=== PATIENT | female | born 1940 | race Caucasian/White ===

== ENCOUNTER 2017-07-08 14:23 | Inpatient (IN) | payer MEDICARE, OTHER ==
--- NOTE | 2017-07-08 15:01 | ED ---
Fall HPI - General Chief Complaint: Fall Stated Complaint: Fall Time Seen by Provider: 07/08/17 14:33 Source: patient Mode of arrival: EMS Limitations: altered mental status (Pain medication) - History of Present Illness Initial Comments: This patient is a 76-year-old woman who presents to be evaluated after she had a fall. The patient states she was at her apartment and that she caught her foot on the carpet. This resulted in her falling backward and landing on her left arm awkwardly. She complains of pain near the left shoulder. She is also having some left leg pain. The patient denies hitting her head. She has no head or neck pain. She is not having chest, back or abdomen pain. EMS was phoned and did give the patient 1 dose of fentanyl, and she is declining any further analgesia right now. History does appear somewhat limited as the patient seems to be mildly sedated related to the pain medication. MD Complaint: fall -: minutes(s) Fall From: standing When Fall Occurred: just prior to arrival Fall Witnessed: no Place Fall Occurred: home Loss of Consciousness: none Prolonged Down Time?: no Symptoms Prior to Fall: none Location - Extremities: Left: Arm, Leg Severity: moderate Quality: aching Context: tripped/slipped Associated Symptoms: denies - Related Data Home Medications Medication Instructions Recorded Confirmed Apixaban [Eliquis] 5 mg PO BID 07/08/17 07/08/17 Atorvastatin [Lipitor] 20 mg PO DAILY 07/08/17 07/08/17 Donepezil HCl [Aricept] 5 mg PO DAILY 07/08/17 07/08/17 Escitalopram [Lexapro] 5 mg PO DAILY 07/08/17 07/08/17 Gabapentin [Neurontin] 300 mg PO BID 07/08/17 07/08/17 Losartan [Cozaar] 25 mg PO DAILY 07/08/17 07/08/17 Memantine HCl [Namenda] 5 mg PO DAILY 07/08/17 07/08/17 Metoprolol Succinate (ER) [Toprol 25 mg PO DAILY 07/08/17 07/08/17 Xl] Pantoprazole Sodium [Protonix] 40 mg PO DAILY 07/08/17 07/08/17 metFORMIN HCL [Glucophage] 500 mg PO BID 07/08/17 07/08/17 Allergies Allergy/AdvReac Type Severity Reaction Status Date / Time No Known Allergies Allergy Verified 07/08/17 14:39 Review of Systems ROS Statement: Those systems with pertinent positive or pertinent negative responses have been documented in the HPI. ROS Other: All systems not noted in ROS Statement are negative. Limitations: ROS unobtainable due to patients medical condition (pain medication ) Constitutional: Denies: weakness Eyes: Denies: vision change Respiratory: Denies: cough, dyspnea Cardiovascular: Denies: chest pain, syncope Gastrointestinal: Reports: nausea (Since receiving medication). Denies: abdominal pain, vomiting Genitourinary: Denies: dysuria Musculoskeletal: Denies: back pain Neurological: Denies: headache, weakness, numbness Past Medical History Past Medical History: Diabetes Mellitus, GERD/Reflux, Hyperlipidemia, Hypertension, Memory Impairment Additional Past Medical History / Comment(s): alzheimers History of Any Multi-Drug Resistant Organisms: None Reported Past Surgical History: Hysterectomy Past Psychological History: Anxiety, Depression Smoking Status: Former smoker Past Alcohol Use History: None Reported Past Drug Use History: None Reported - Past Family History Father Family Medical History: Hypertension Mother Family Medical History: Memory Impairment General Exam Limitations: no limitations General appearance: in no apparent distress, other (Patient is somnolent but does arouse to voice) Head exam: Present: atraumatic, normocephalic, normal inspection Eye exam: Present: normal appearance, PERRL, EOMI. Absent: scleral icterus, conjunctival injection ENT exam: Present: normal oropharynx Neck exam: Present: normal inspection, full ROM. Absent: tenderness Respiratory exam: Present: normal lung sounds bilaterally. Absent: respiratory distress, wheezes, rales, rhonchi, stridor, chest wall tenderness Cardiovascular Exam: Present: regular rate, normal rhythm, normal heart sounds. Absent: systolic murmur, diastolic murmur, rubs, gallop GI/Abdominal exam: Present: soft. Absent: distended, tenderness, guarding, rebound, mass Extremities exam: Present: tenderness (Left proximal humerus.), normal capillary refill. Absent: full ROM (There is pain with attempted range of motion at the left shoulder and also at the left hip.), pedal edema, calf tenderness Back exam: Present: normal inspection. Absent: CVA tenderness (R), CVA tenderness (L), vertebral tenderness Neurological exam: Present: altered (Patient is somnolent but arouses to voice. GCS is 15.), oriented X3, CN II-XII intact. Absent: motor sensory deficit Skin exam: Present: warm, dry, intact, normal color. Absent: rash Course Vital Signs 07/08/17 14:32 Temperature 97.6 F Pulse Rate 64 Respiratory 18 Rate Blood Pressure 184/98 O2 Sat by Pulse 91 L Oximetry Medical Decision Making - Medical Decision Making Patient is 76-year-old woman with left hip and left humerus fracture after fall from ground-level at her senior apartment. The patient will be admitted here, case discussed with orthopedics workers compensation defense attorney. Patient will have medical consultation at by Dr. Lopez at the request. Patient reportedly takes eliquis so do not anticipate surgery tomorrow, patient not nothing by mouth overnight. - Lab Data Result diagrams: 07/08/17 16:19 07/08/17 16:19 - EKG Data -: EKG Interpreted by Nd EKG shows normal: sinus rhythm, axis (Normal), intervals (Normal) Rate: normal (Rate approximately 69 bpm) Interpretation: other (Possible old inferior infarct.) Disposition Clinical Impression: Fall, Fracture of femoral neck, left, closed, Left humeral fracture Disposition: ADMITTED IP TO THIS [facility] Condition: Fair Is patient prescribed a controlled substance at d/c from ED?: No
--- NOTE | 2017-07-08 15:31 | CT ---
EXAMINATION TYPE: CT brain lalita ndiaye DATE OF EXAM: 07/08/2017 COMPARISON: NONE HISTORY: Fall. Headache. Neck pain. CT DLP: 1429.4 mGycm Automated exposure control for dose reduction was used. TECHNIQUE: CT scan of the head and cervical spine are performed without contrast. FINDINGS: There is cerebral cortical atrophy. There is patchy hypodensity in the periventricular wh ite matter. There is no mass effect nor midline shift. There is no sign of intracranial hemorrhage. T he calvarium is intact. There is some straightening of the vertebra and slight kyphotic curvature. There is narrowing at C5-6 C6-7 disc spaces and spurring of the endplates. There is similar change at C3-4. Facet joints are in tact. There is no evidence of a cervical spine fracture. Skull base is intact. I see no focal bone de struction. There are emphysematous changes at the lung apices. IMPRESSION: Cerebral atrophy and chronic small vessel ischemia. No acute intracranial abnormality. Spondylotic changes in the cervical spine. No fracture.
--- NOTE | 2017-07-08 15:48 | XR ---
EXAMINATION TYPE: XR humerus LT DATE OF EXAM: 07/08/2017 COMPARISON: NONE HISTORY: Arm pain TECHNIQUE: 2 views FINDINGS: There is impacted humeral neck fracture with some comminution. There is no dislocation. Elb ow joint appears intact. IMPRESSION: Impacted humeral neck fracture.
--- NOTE | 2017-07-08 15:49 | XR ---
EXAMINATION TYPE: XR femur LT DATE OF EXAM: 07/08/2017 COMPARISON: NONE HISTORY: Pain after falling TECHNIQUE: 5 views FINDINGS: There is a nondisplaced fracture of the left femoral neck. There is no dislocation. The kne e joint is intact. There is vascular calcification. IMPRESSION: Acute nondisplaced fracture left femoral neck.
--- NOTE | 2017-07-08 15:50 | XR ---
EXAMINATION TYPE: XR chest 1V DATE OF EXAM: 07/08/2017 COMPARISON: NONE HISTORY: Chest pain TECHNIQUE: Single frontal view of the chest is obtained. FINDINGS: There is no heart failure nor confluent pneumonic infiltrate. Thoracic aorta is atheromato us. Costophrenic angles are clear. The ribs appear intact. There is no sign of a pneumothorax. IMPRESSION: No active cardiopulmonary disease.
[2017-07-08] MEDS ORDERED: ONDANSETRON 4 MG/2 ML VIAL IVP PRN (15:54)
[2017-07-08] MEDS ORDERED: ACETAMINOPHEN TAB 325 MG TAB PO PRN (15:54)
[2017-07-08] MEDS ORDERED: NALOXONE 0.4 MG/ML 1 ML VIAL IV PRN (15:54)
[2017-07-08 16:31] LABS: Basophils % (A) 0 %; Eosinophils # (A) 0.1 k/uL (0-0.7); Eosinophils % (A) 1 %; HCT 43.7 % (34.0-46.0); HGB 14.1 gm/dL (11.4-16.0); Lymphocytes # (A) 0.9 k/uL (1.0-4.8); Lymphocytes % (A) 8 %; MCH 29.3 pg (25.0-35.0); MCHC 32.3 g/dL (31.0-37.0); MCV 90.5 fL (80.0-100.0); Mean Platelet Volume 7.4; Monocytes # (A) 0.4 k/uL (0-1.0); Monocytes % (A) 4 %; Neutrophils # (A) 8.9 k/uL (1.3-7.7); Neutrophils % (A) 86 %; Platelet Count 200 k/uL (150-450); RBC 4.83 m/uL (3.80-5.40); RDW 14.2 % (11.5-15.5); WBC 10.3 k/uL (3.8-10.6)
[2017-07-08 16:41] LABS: Anion Gap 13 mmol/L; Blood Urea Nitrogen 17 mg/dL (7-17); Calcium 9.3 mg/dL (8.4-10.2); Carbon Dioxide 23 mmol/L (22-30); Chloride 106 mmol/L (98-107); Glucose 170 mg/dL (74-99); Potassium 4.4 mmol/L (3.5-5.1); Sodium 142 mmol/L (137-145)
[2017-07-08 16:42] LABS: INR 1.1 (<1.2); Prothrombin Time 10.8 sec (9.0-12.0)
[2017-07-08 16:50] VITALS: BMI 36.6
[2017-07-08] MEDS: INSULIN ASPART 100 UNIT/ML 1 ML 10 ML VIAL SQ SCH ×2 (17:56→20:40)
[2017-07-08 20:32] LABS: Glucose,Whole Blood 216 mg/dL (75-99)
[2017-07-08] MEDS: MORPHINE SULFATE 4 MG/ML SYRINGE IV PRN (20:40)
[2017-07-08] MEDS: SODIUM CHLORIDE 0.9% 1,000 ML IV SCH ×2 (20:41→22:06)
[2017-07-08] MEDS ORDERED: FAMOTIDINE 20 MG TAB PO SCH (21:00)
--- NOTE | 2017-07-09 00:04 | CONS ---
CONSULTATION DATE OF SERVICE: 07/08/17 REASON FOR CONSULTATION: Advice regarding diabetes mellitus and other medical issues requested by Orthopedic surgery. HISTORY OF PRESENT ILLNESS: This 76-year-old woman with past medical history of diabetes, history of GERD, hypertension, hyperlipidemia, history of dementia and anxiety, depression being followed by primary physician in the [place] area, apparently fell down slipping on the carpet. The patient unable to remember what exactly happened. The patient had left femoral fracture. The patient is also taking Eliquis at home. The exact reason is unknown at this time. Possibly atrial fibrillation. The EKG on admission which was reviewed by me showed atrial fibrillation with ST changes and incomplete and possibly interventricular conduction defect also. There is no history of fever, rigors. No history of headache, loss of consciousness, seizures at this time. PAST MEDICAL HISTORY: History of diabetes, GERD, hypertension, hyperlipidemia, memory impairment, and anxiety, depression, atrial fibrillation. MEDICATIONS ARE: 1. Glucophage 500 mg p.o. b.i.d. 2. Protonix 40 mg. 3. Toprol-XL 25 mg b.i.d. 4. Namenda 5 mg. 5. Cozaar 25 mg daily. 6. Neurontin 300 mg b.i.d. 7. Lexapro 5 mg b.i.d. 9. Lipitor 20 mg daily. 10.Eliquis 5 mg p.o. b.i.d. ALLERGIES: None. FAMILY HISTORY: History of hypertension in the family. SOCIAL HISTORY: Previous history of smoking. No alcohol intake. REVIEW OF SYSTEMS: ENT: No diminished vision or hearing. Cardiovascular as mentioned. Respiratory : As mentioned earlier. GI no nausea. no dysuria. Nervous systems: No numbness, weakness. Allergy/Immunology: No asthma or hayfever. Musculoskeletal: As mentioned earlier. Hematology/Oncology: No history of anemia. Endocrine: Diabetes mellitus. Constitutional: As mentioned earlier. Dermatology: Negative. Rheumatology: Negative. Psychiatry: As mentioned earlier. PHYSICAL EXAMINATION: The patient is alert and oriented x2. Pulse 60, blood pressure 130/66, respirations 16, temperature 97.2, pulse ox 94% room air. HEENT: Conjunctivae normal. Oral mucosa moist. Neck is no jugular venous distention. No carotid bruit. No lymph nodes enlargement. Cardiovascular S1, S2 regular. Respiratory: Diffuse scattered rhonchi. No crackles. A few rhonchi. abdomen soft, nontender. No mass palpable. Legs: Status post fracture. Central nervous system : Higher functions as mentioned earlier, moves all 4 limbs, no focal motor or sensory deficits. Lymphatics: No lymph nodes palpable in the neck, axillae or groin. Skin: No ulcers, rashes or bleeding. Joints: As mentioned earlier. LABS: WBC 10.3 glucose 170-160, potassium 4.4. ASSESSMENT: 1. Status post left femoral fracture. 2. Diabetes type 2. 3. Possible atrial fibrillation. 4. On Eliquis. 5. Gastroesophageal reflux disease. 6. Hypertension. 7. Hyperlipidemia. 8. Asthma. 9. Dementia. 10.Anxiety, depression. RECOMMENDATION AND DISCUSSION: In this 76-year-old woman who was admitted after fracture had a history of atrial fibrillation. At this time I recommend to hold the Eliquis and obtain a 2D echo with Doppler and continue the remote telemetry. Monitor blood sugars closely. DVT prophylaxis. Incentive spirometry. The patient is clinically stable and clear for the patient cleared for surgery once seen by Cardiology. I would recommend to hold the Eliquis at this time and restart postoperatively. We will follow the patient closely with you and continue rest of medications. Medication reconciliation done. Thank you Dr. Landeros for letting us participate in the care of this patient. MMODL / IJN: [id number] / NEYDA
[2017-07-09 04:46] LABS: Appearance,Urine Clear (Clear); Bilirubin,Urine Negative (Negative); Blood,Urine Trace (Negative); Color,Urine Yellow; Glucose,Urine (UA) Trace (Negative); Ketones,Urine Negative (Negative); Leukocyte Esterase,Urine Negative (Negative); Mucus,Urine Occasional /hpf; Nitrite,Urine Negative (Negative); Protein,Urine Trace (Negative); RBC,Urine 11 /hpf (0-5); Squamous Epithelial Cell,Urine 1 /hpf (0-4); Urobilinogen,Urine <2.0 mg/dL (<2.0); WBC,Urine 6 /hpf (0-5)
[2017-07-09] MEDS: MORPHINE SULFATE 4 MG/ML SYRINGE IV PRN (05:17)
[2017-07-09] MEDS: HYDROcodone/APAP 5-325MG 1 EACH TAB PO PRN ×2 (05:51→20:26)
[2017-07-09 06:49] LABS: Basophils % (A) 0 %; Eosinophils # (A) 0.2 k/uL (0-0.7); Eosinophils % (A) 2 %; HCT 38.9 % (34.0-46.0); HGB 12.8 gm/dL (11.4-16.0); Lymphocytes # (A) 1.5 k/uL (1.0-4.8); Lymphocytes % (A) 14 %; MCH 29.5 pg (25.0-35.0); MCHC 32.9 g/dL (31.0-37.0); MCV 89.5 fL (80.0-100.0); Mean Platelet Volume 7.2; Monocytes # (A) 0.7 k/uL (0-1.0); Monocytes % (A) 7 %; Neutrophils # (A) 7.9 k/uL (1.3-7.7); Neutrophils % (A) 76 %; Platelet Count 180 k/uL (150-450); RBC 4.35 m/uL (3.80-5.40); RDW 14.1 % (11.5-15.5); WBC 10.4 k/uL (3.8-10.6)
[2017-07-09 06:59] LABS: Glucose,Whole Blood 149 mg/dL (75-99)
[2017-07-09 07:00] LABS: Anion Gap 11 mmol/L; Blood Urea Nitrogen 14 mg/dL (7-17); Calcium 8.8 mg/dL (8.4-10.2); Carbon Dioxide 23 mmol/L (22-30); Chloride 104 mmol/L (98-107); Glucose 156 mg/dL (74-99); Potassium 3.9 mmol/L (3.5-5.1); Sodium 138 mmol/L (137-145)
[2017-07-09] MEDS: INSULIN ASPART 100 UNIT/ML 1 ML 10 ML VIAL SQ SCH ×4 (08:51→20:13)
[2017-07-09] MEDS: SODIUM CHLORIDE 0.9% 1,000 ML IV SCH (08:52)
--- NOTE | 2017-07-09 09:02 | P.CRDCN ---
History of Present Illness Consult date: 07/09/17 Consult reason: pre-op evaluation History of present illness: This is a 76-year-old female patient who lives in assisted living home when she fell in the dining area. The patient is not able to give many details. She is a poor historian with a history of dementia. The patient states that she does not remember what happened prior to the fall but does remember not along anybody to assist her until EMS arrived. The patient sustained a left hip and left humerus fracture and is scheduled for surgery in the next 24-48 hours. Information obtained from the chart suggests that the patient tripped and fell. She did not have any episode of syncope or loss of consciousness. She did not express any chest discomfort or dizziness prior to the fall. This morning she seen lying in bed comfortable. Denies any chest discomfort or discomfort to her left upper and lower extremity. She does have some bruising on her left arm. EKG shows a sinus mechanism with occasional PACs. She does have a history of diabetes, atrial fibrillation, hypertension and dementia. 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 Review of Systems All systems: negative Constitutional: Reports as per HPI Cardiovascular: Reports as per HPI Past Medical History Past Medical History: Diabetes Mellitus, GERD/Reflux, Hyperlipidemia, Hypertension, Memory Impairment Additional Past Medical History / Comment(s): alzheimers History of Any Multi-Drug Resistant Organisms: None Reported Past Surgical History: Hysterectomy Past Psychological History: Anxiety, Depression Smoking Status: Former smoker Past Alcohol Use History: None Reported Past Drug Use History: None Reported - Past Family History Father Family Medical History: Hypertension Mother Family Medical History: Memory Impairment Medications and Allergies Home Medications Medication Instructions Recorded Confirmed Type Apixaban [Eliquis] 5 mg PO BID 07/08/17 07/08/17 History Atorvastatin [Lipitor] 20 mg PO DAILY 07/08/17 07/08/17 History Donepezil HCl [Aricept] 5 mg PO DAILY 07/08/17 07/08/17 History Escitalopram [Lexapro] 5 mg PO DAILY 07/08/17 07/08/17 History Gabapentin [Neurontin] 300 mg PO BID 07/08/17 07/08/17 History Losartan [Cozaar] 25 mg PO DAILY 07/08/17 07/08/17 History Memantine HCl [Namenda] 5 mg PO DAILY 07/08/17 07/08/17 History Metoprolol Succinate (ER) [Toprol 25 mg PO DAILY 07/08/17 07/08/17 History Xl] Pantoprazole Sodium [Protonix] 40 mg PO DAILY 07/08/17 07/08/17 History metFORMIN HCL [Glucophage] 500 mg PO BID 07/08/17 07/08/17 History Allergies Allergy/AdvReac Type Severity Reaction Status Date / Time No Known Allergies Allergy Verified 07/08/17 14:39 Physical Exam Vitals: Vital Signs Temp Pulse Pulse Resp BP BP Pulse Ox 07/09/17 03:03 160/86 07/09/17 00:53 98.4 F 83 16 165/88 92 L 07/08/17 20:00 97.5 F L 65 16 135/66 95 07/08/17 16:56 98.9 F 69 15 192/89 91 L 07/08/17 16:36 97.9 F 78 16 138/70 96 07/08/17 14:32 97.6 F 64 18 184/98 91 L Intake and Output 07/08/17 07/09/17 07/09/17 22:59 06:59 14:59 Intake Total 180 1440 Balance 180 1440 Intake: Intake, IV Titration 960 Amount Sodium Chloride 0.9% 1, 960 000 ml @ 60 mls/hr IV . [id number] [facility] Rx#:[id number] Oral 180 Other 480 Other: # Voids 1 Weight 115.666 kg - Constitutional General appearance: obese - EENT Eyes: normal appearance ENT: normal oropharynx Ears: bilateral: normal - Neck No JVD Carotids: bilateral: upstroke normal - Respiratory Respiratory: bilateral: CTA - Cardiovascular Rhythm: regularly irregular Heart sounds: normal: S1, S2 - Gastrointestinal General gastrointestinal: soft - Integumentary Integumentary: normal, normal turgor - Psychiatric Psychiatric: appropriate affect Results 07/09/17 06:19 07/09/17 06:19 Coagulation 07/08/17 Range/Units 16:19 PT 10.8 (9.0-12.0) sec APTT 24.0 (22.0-30.0) sec CBC 07/08/17 07/09/17 Range/Units 16:19 06:19 WBC 10.3 10.4 (3.8-10.6) k/uL RBC 4.83 4.35 (3.80-5.40) m/uL Hgb 14.1 12.8 (11.4-16.0) gm/dL Hct 43.7 38.9 (34.0-46.0) % Plt Count 200 180 (150-450) k/uL Comprehensive Metabolic Panel 07/08/17 07/09/17 Range/Units 16:19 06:19 Sodium 142 138 (137-145) mmol/L Potassium 4.4 3.9 (3.5-5.1) mmol/L Chloride 106 104 (98-107) mmol/L Carbon Dioxide 23 23 (22-30) mmol/L BUN 17 14 (7-17) mg/dL Creatinine 0.72 0.64 (0.52-1.04) mg/dL Glucose 170 H 156 H (74-99) mg/dL Calcium 9.3 8.8 (8.4-10.2) mg/dL Current Medications Generic Name Dose Route Start Last Admin Trade Name Freq PRN Reason Stop Dose Admin Acetaminophen 650 mg 07/08/17 15:54 Tylenol Tab PO Q6HR PRN Mild Pain or Fever > 100.5 Hydrocodone Bitart/Acetaminophen 1 each 07/08/17 23:31 07/09/17 05:51 Temperance 5-325 PO 1 each Q6HR PRN Administration Pain Atorvastatin Calcium 20 mg 07/09/17 09:00 Lipitor PO DAILY [facility] Donepezil HCl 5 mg 07/09/17 09:00 Aricept PO DAILY [facility] Escitalopram Oxalate 5 mg 07/09/17 09:00 Lexapro PO DAILY [facility] Gabapentin 300 mg 07/09/17 09:00 Neurontin PO BID [facility] Sodium Chloride 1,000 mls @ 60 mls/hr 07/08/17 16:00 07/08/17 22:06 Saline 0.9% IV Not Given .[id number] [facility] Insulin Aspart 0 unit 07/08/17 17:30 07/08/17 20:40 Novolog SQ 4 unit ACHS [facility] Administration Protocol Losartan Potassium 25 mg 07/09/17 09:00 Cozaar PO DAILY [facility] Melatonin 3 mg 07/09/17 21:00 Melatonin PO HS [facility] Memantine 5 mg 07/09/17 09:00 Namenda PO DAILY [facility] Metformin HCl 500 mg 07/09/17 09:00 Glucophage PO BID [facility] Metoprolol Succinate 25 mg 07/09/17 09:00 Toprol Xl PO DAILY [facility] Morphine Sulfate 4 mg 07/08/17 15:54 07/09/17 05:17 Morphine Sulfate (Inj) IV 4 mg Q4HR PRN Administration Severe Pain Naloxone HCl 0.2 mg 07/08/17 15:54 Narcan IV Q2M PRN Opioid Reversal Ondansetron HCl 4 mg 07/08/17 15:54 Zofran IVP Q8HR PRN Nausea And Vomiting Pantoprazole Sodium 40 mg 07/09/17 09:00 Protonix PO DAILY [facility] Intake and Output 07/08/17 07/09/17 07/09/17 22:59 06:59 14:59 Intake Total 180 1440 Balance 180 1440 Intake: Intake, IV Titration 960 Amount Sodium Chloride 0.9% 1, 960 000 ml @ 60 mls/hr IV . [id number] [facility] Rx#:[id number] Oral 180 Other 480 Other: # Voids 1 Weight 115.666 kg 07/09/17 06:19 07/09/17 06:19 - EKG Interpretation EKG: sinus rhythm (Occasional PACs) Assessment and Plan Assessment: Fall with left hip and left humerus fracture Diabetes mellitus Paroxysmal atrial fibrillation Hypertension Dementia Plan: Obtain echocardiogram to evaluate LV size and systolic function. Hold Eliquis. Continue beta elia. From a cardiac standpoint, there is no absolute contraindication to surgical intervention for her left hip or left humerus. We will continue to follow the patient in the postoperative period. Thank you very kind if this consultation.
--- NOTE | 2017-07-09 10:07 | P.HPOR ---
History of Present Illness H&P Date: 07/09/17 Chief Complaint: Left hip fracture, left proximal humerus fracture. This is a 76-year-old female with history of diabetes, atrial fibrillation and dementia who fell in her assisted living home on 07/08/2017 sustaining injury to her left hip and left shoulder. On exam and x-ray in the emergency department she is found to have a femoral neck fracture as well as a humeral neck fracture on the left side. She is admitted to our service for surgical intervention and care. Past Medical History Past Medical History: Diabetes Mellitus, GERD/Reflux, Hyperlipidemia, Hypertension, Memory Impairment Additional Past Medical History / Comment(s): alzheimers History of Any Multi-Drug Resistant Organisms: None Reported Past Surgical History: Hysterectomy Past Psychological History: Anxiety, Depression Smoking Status: Former smoker Past Alcohol Use History: None Reported Past Drug Use History: None Reported - Past Family History Father Family Medical History: Hypertension Mother Family Medical History: Memory Impairment Medications and Allergies Home Medications Medication Instructions Recorded Confirmed Type Apixaban [Eliquis] 5 mg PO BID 07/08/17 07/08/17 History Atorvastatin [Lipitor] 20 mg PO DAILY 07/08/17 07/08/17 History Donepezil HCl [Aricept] 5 mg PO DAILY 07/08/17 07/08/17 History Escitalopram [Lexapro] 5 mg PO DAILY 07/08/17 07/08/17 History Gabapentin [Neurontin] 300 mg PO BID 07/08/17 07/08/17 History Losartan [Cozaar] 25 mg PO DAILY 07/08/17 07/08/17 History Memantine HCl [Namenda] 5 mg PO DAILY 07/08/17 07/08/17 History Metoprolol Succinate (ER) [Toprol 25 mg PO DAILY 07/08/17 07/08/17 History Xl] Pantoprazole Sodium [Protonix] 40 mg PO DAILY 07/08/17 07/08/17 History metFORMIN HCL [Glucophage] 500 mg PO BID 07/08/17 07/08/17 History Allergies Allergy/AdvReac Type Severity Reaction Status Date / Time No Known Allergies Allergy Verified 07/08/17 14:39 Physical Examination This is a pleasant 76-year-old female in no acute distress. She is alert with some confusion. She states that she is aware that she fell but is unsure of how it happened. Exam of the head neck reveal no obvious deformity. She has full cervical spine motion without difficulty or pain. There is no pain with palpation about cervical spine or paraspinal musculature. Exam the upper extremities reveals no obvious deformity. She is unable to use the left arm actively. Gentle passive motion produces pain. There is mild pain with palpation about the shoulder. She has full elbow, wrist and finger motion bilaterally. Neurovascular status to the upper extremities is intact. Exam of the lower extremities reveals no obvious deformity. The left leg is resting on a pillow. There is pain with any motion to the left hip. She has full foot and ankle motion bilaterally. Neurovascular status to the lower extremities is intact. Results X-rays of the pelvis and left hip reveal a mildly displaced femoral neck fracture. X-rays of the left shoulder reveal a minimal a displaced fracture of the humeral neck. - Labs Labs: Abnormal Lab Results - Last 24 Hours (Table) 07/08/17 07/08/17 07/08/17 Range/Units 16:19 16:19 20:09 Neutrophils # 8.9 H (1.3-7.7) k/uL Lymphocytes # 0.9 L (1.0-4.8) k/uL Glucose 170 H (74-99) mg/dL POC Glucose (mg/dL) 216 H (75-99) mg/dL Urine Protein (Negative) Urine Glucose (UA) (Negative) Urine Blood (Negative) Urine RBC (0-5) /hpf Urine WBC (0-5) /hpf Urine Mucus (None) /hpf 07/09/17 07/09/17 07/09/17 Range/Units 03:13 06:19 06:19 Neutrophils # 7.9 H (1.3-7.7) k/uL Lymphocytes # (1.0-4.8) k/uL Glucose 156 H (74-99) mg/dL POC Glucose (mg/dL) (75-99) mg/dL Urine Protein Trace H (Negative) Urine Glucose (UA) Trace H (Negative) Urine Blood Trace H (Negative) Urine RBC 11 H (0-5) /hpf Urine WBC 6 H (0-5) /hpf Urine Mucus Occasional H (None) /hpf 07/09/17 Range/Units 06:48 Neutrophils # (1.3-7.7) k/uL Lymphocytes # (1.0-4.8) k/uL Glucose (74-99) mg/dL POC Glucose (mg/dL) 149 H (75-99) mg/dL Urine Protein (Negative) Urine Glucose (UA) (Negative) Urine Blood (Negative) Urine RBC (0-5) /hpf Urine WBC (0-5) /hpf Urine Mucus (None) /hpf H & H 07/08/17 07/09/17 Range/Units 16:19 06:19 Hgb 14.1 12.8 (11.4-16.0) gm/dL Hct 43.7 38.9 (34.0-46.0) % Coagulation 07/08/17 Range/Units 16:19 INR 1.1 (<1.2) Result Diagrams: 07/09/17 06:19 07/09/17 06:19 Assessment and Plan (1) Fall Current Visit: Yes Status: Acute Code(s): W19.XXXA - UNSPECIFIED FALL, INITIAL ENCOUNTER SNOMED Code(s): 4406403 (2) Fracture of femoral neck, left, closed Current Visit: Yes Status: Acute Code(s): S72.002A - FRACTURE OF UNSP PART OF NECK OF LEFT FEMUR, INIT SNOMED Code(s): 179044013 (3) Left humeral fracture Current Visit: Yes Status: Acute Code(s): S42.302A - UNSP FRACTURE OF SHAFT OF HUMERUS, LEFT ARM, INIT SNOMED Code(s): 18268902 Plan: The clinical and x-ray findings are discussed with the patient. It is recommended that she undergo hemiarthroplasty of the left hip. The procedures been discussed in detail including the possible risks and outcomes of surgery. With regard to the shoulder, is recommended that we proceed with closed treatment. I will order sling for comfort. We will most likely recommend inpatient rehab postoperatively.
[2017-07-09 10:30] LABS: Appearance,Urine Clear (Clear); Bilirubin,Urine Negative (Negative); Blood,Urine Small (Negative); Color,Urine Yellow; Glucose,Urine (UA) Trace (Negative); Ketones,Urine Negative (Negative); Leukocyte Esterase,Urine Small (Negative); Mucus,Urine Few /hpf; Nitrite,Urine Negative (Negative); PH, Urine 5.5 (5.0-8.0); Protein,Urine Trace (Negative); RBC,Urine 11 /hpf (0-5); Specific Gravity,Urine 1.023 (1.001-1.035); Squamous Epithelial Cell,Urine 1 /hpf (0-4); Urobilinogen,Urine <2.0 mg/dL (<2.0); WBC,Urine 11 /hpf (0-5)
[2017-07-09 12:05] LABS: Glucose,Whole Blood 144 mg/dL (75-99)
[2017-07-09] MEDS: metFORMIN 500 MG TAB PO SCH ×2 (12:21→20:13)
[2017-07-09] MEDS: PANTOPRAZOLE 40 MG TABLET PO SCH (12:22)
[2017-07-09] MEDS: GABAPENTIN 300 MG CAP PO SCH ×2 (12:22→20:14)
[2017-07-09] MEDS: ESCITALOPRAM 5 MG TAB PO SCH (12:22)
[2017-07-09] MEDS: ATORVASTATIN 20 MG TAB PO SCH (12:23)
[2017-07-09] MEDS: DONEPEZIL 5 MG TAB PO SCH (12:23)
[2017-07-09] MEDS: LOSARTAN 25 MG TAB PO SCH (12:23)
[2017-07-09] MEDS: METOPROLOL SUCCINATE (ER) 25 MG TAB.ER.24H PO SCH (12:23)
[2017-07-09] MEDS: MEMANTINE 5 MG TAB PO SCH (12:23)
[2017-07-09] MEDS: cefTRIAXone IN SWFI 1,000 MG/10 ML SYRINGE IVP SCH (12:24)
[2017-07-09] MEDS: LEVOFLOXACIN 500MG-D5W PMX 500 MG in DEXTROSE/WATER 1 100ML.BAG IVPB SCH (16:53)
[2017-07-09 16:55] LABS: Glucose,Whole Blood 204 mg/dL (75-99)
[2017-07-09] MEDS: amLODIPine 5 MG TAB PO SCH (17:43)
[2017-07-09] MEDS: MELATONIN 3 MG TABLET PO SCH (20:13)
[2017-07-09 20:15] LABS: Glucose,Whole Blood 159 mg/dL (75-99)
--- NOTE | 2017-07-09 20:17 | PN ---
PROGRESS NOTE DATE OF SERVICE: 07/09/2017 This 76-year-old woman was admitted with left femoral fracture also has left humerus fracture also with the hematoma. The patient was in atrial fibrillation. The patient is off anticoagulation. Cardiology following the patient closely. No chest pain. No palpitations. No fever. EXAM: Alert and oriented x3. Pulse 74. Blood pressure 160/77, respiration 18, temperature 98.3, pulse ox 93% on room air. HEENT: Conjunctivae normal. Neck: No jugular venous distention. Cardiovascular: S1, S2 muffled. RESPIRATORY: Breath sounds diminished in the bases. No rhonchi. No crackles. Abdomen is soft, nontender. No mass palpable. No edema. No swelling. Central nervous system: No focal deficits. Legs status post left femoral fracture and left arm left humerus fracture. LABORATORY DATA: CBC within normal. Accu-Cheks are noted. UA noted. ASSESSMENT: 1. Status post left femoral fracture. 2. Diabetes type 2. 3. Urinary tract infection. 4. Atrial fibrillation paroxysmal. 5. Left humerus fracture. 6. On Eliquis. 7. Gastroesophageal reflux disease. 8. Hypertension. 9. Hyperlipidemia. 10.History of asthma. 11.Dementia. 12.Depression. RECOMMENDATION AND DISCUSSION: Continue current medications, management and symptomatic treatment. Otherwise the patient cleared for surgery and I would recommend antibiotics. Otherwise, closely monitor. Prognosis guarded. Further recommendations to follow. Patient is medically stable at this time. MMODL / IJN: [id number] /
[2017-07-10] MEDS: SODIUM CHLORIDE 0.9% 1,000 ML IV SCH ×2 (04:43→17:13)
[2017-07-10 07:14] LABS: Glucose,Whole Blood 123 mg/dL (75-99)
[2017-07-10] MEDS: INSULIN ASPART 100 UNIT/ML 1 ML 10 ML VIAL SQ SCH ×4 (07:17→21:14)
[2017-07-10 07:40] LABS: Basophils % (A) 0 %; Eosinophils # (A) 0.5 k/uL (0-0.7); Eosinophils % (A) 4 %; HCT 41.6 % (34.0-46.0); HGB 13.3 gm/dL (11.4-16.0); Lymphocytes # (A) 1.5 k/uL (1.0-4.8); Lymphocytes % (A) 14 %; MCH 28.9 pg (25.0-35.0); MCV 90.4 fL (80.0-100.0); Mean Platelet Volume 8.3; Monocytes % (A) 9 %; Neutrophils # (A) 7.6 k/uL (1.3-7.7); Neutrophils % (A) 71 %; Platelet Count 154 k/uL (150-450); RBC 4.61 m/uL (3.80-5.40); RDW 14.5 % (11.5-15.5); WBC 10.7 k/uL (3.8-10.6)
[2017-07-10] MEDS: ATORVASTATIN 20 MG TAB PO SCH (08:11)
[2017-07-10] MEDS: ESCITALOPRAM 5 MG TAB PO SCH (08:11)
[2017-07-10] MEDS: DONEPEZIL 5 MG TAB PO SCH (08:11)
[2017-07-10] MEDS: MEMANTINE 5 MG TAB PO SCH (08:11)
[2017-07-10] MEDS: GABAPENTIN 300 MG CAP PO SCH ×2 (08:11→20:23)
[2017-07-10] MEDS: metFORMIN 500 MG TAB PO SCH ×2 (08:11→20:24)
[2017-07-10] MEDS: PANTOPRAZOLE 40 MG TABLET PO SCH (08:12)
[2017-07-10] MEDS: LOSARTAN 25 MG TAB PO SCH (09:07)
[2017-07-10] MEDS: METOPROLOL SUCCINATE (ER) 25 MG TAB.ER.24H PO SCH (09:07)
[2017-07-10] MEDS: cefTRIAXone IN SWFI 1,000 MG/10 ML SYRINGE IVP SCH (09:07)
[2017-07-10] MEDS: amLODIPine 5 MG TAB PO SCH (09:07)
--- NOTE | 2017-07-10 10:37 | ECHOF ---
Referral Reason:EKG changes MEASUREMENTS -------- HEIGHT: 177.8 cm WEIGHT: 115.7 kg BP: 160/77 RVIDd: 2.5 cm (< 3.3) IVSd: 1.4 cm (0.6 - 1.1) LVIDd: 4.4 cm (3.9 - 5.3) LVPWd: 1.5 cm (0.6 - 1.1) IVSs: 2.3 cm LVIDs: 3.6 cm LVPWs: 1.8 cm LA Diam: 3.3 cm (2.7 - 3.8) LAESV Index (A-L): 15.56 ml/m Ao Diam: 3.4 cm (2.0 - 3.7) AV Cusp: 2.2 cm (1.5 - 2.6) MV EXCURSION: 16.312 mm (> 18.000) MV EF SLOPE: 44 mm/s (70 - 150) EPSS: 1.7 cm MV E Alexei: 0.61 m/s MV DecT: 348 ms MV A Alexei: 0.88 m/s MV E/A Ratio: 0.70 AR PHT: 867 ms RAP: 5.00 mmHg RVSP: 21.15 mmHg FINDINGS -------- Sinus rhythm. This was a technically adequate study. The left ventricular size is normal. There is moderate concentric left ventricular hypertrophy. O verall left ventricular systolic function is mild-moderately impaired with, an EF between 40 - 45 %. Basal inferior LV wall motion is hypokinetic. Basal inferoseptal LV wall motion is hypokinetic. Mid inferior LV wall motion is hypokinetic. The right ventricle is normal in size. Normal LA size by volume 22+/-6 ml/m2. The right atrium is normal in size. Aortic valve is trileaflet and is mildly thickened. There is [id number] aortic regurgitation. The mitral valve leaflets are mildly thickened. Mild tricuspid regurgitation present. Right ventricular systolic pressure is normal at < 35 mmHg. The pulmonic valve was not well visualized. The aortic root size is normal. Normal inferior vena cava with normal inspiratory collapse consistent with estimated right atrial pre ssure of 5 mmHg. There is no pericardial effusion. CONCLUSIONS -------- 1. Sinus rhythm. 2. This was a technically adequate study. 3. The left ventricular size is normal. 4. There is moderate concentric left ventricular hypertrophy. 5. Overall left ventricular systolic function is mild-moderately impaired with, an EF between 40 - 45 %. 6. Basal inferior LV wall motion is hypokinetic. 7. Basal inferoseptal LV wall motion is hypokinetic. 8. Mid inferior LV wall motion is hypokinetic. 9. Normal LA size by volume 22+/-6 ml/m2. 10. Aortic valve is trileaflet and is mildly thickened. 11. There is jzmj-ws-goxyuvmo aortic regurgitation. 12. The mitral valve leaflets are mildly thickened. 13. Mild tricuspid regurgitation present. 14. Right ventricular systolic pressure is normal at < 35 mmHg. 15. The pulmonic valve was not well visualized. 16. The aortic root size is normal. 17. Normal inferior vena cava with normal inspiratory collapse consistent with estimated right atrial pressure of 5 mmHg. 18. There is no pericardial effusion. [employer] PROFESSOR: Apple Dominique RDCS
[2017-07-10 10:47] LABS: Anion Gap 12 mmol/L; Blood Urea Nitrogen 13 mg/dL (7-17); Calcium 8.7 mg/dL (8.4-10.2); Carbon Dioxide 23 mmol/L (22-30); Chloride 103 mmol/L (98-107); Glucose 137 mg/dL (74-99); Potassium 4.4 mmol/L (3.5-5.1); Sodium 138 mmol/L (137-145)
[2017-07-10 11:33] LABS: Hemoglobin A1C 6.8 % (4.0-6.0)
[2017-07-10 11:42] LABS: Glucose,Whole Blood 131 mg/dL (75-99)
[2017-07-10] MEDS ORDERED: IV FLUID CONTINUATION 1,000 ML IV ONE (12:45)
[2017-07-10] MEDS ORDERED: PROPOFOL 10 MG/ML 20 ML VIAL IV ONE (14:38)
[2017-07-10] MEDS ORDERED: MIDAZOLAM 2 MG/2 ML VIAL ONE (14:38)
[2017-07-10] MEDS ORDERED: KETAMINE 10 MG/ML 20 ML VIAL ONE (14:38)
[2017-07-10] MEDS ORDERED: fentaNYL (PF) 50 MCG/ML 2 ML AMP ONE (14:38)
[2017-07-10] MEDS ORDERED: PHENYLEPHRINE-0.9% NACL SYG 1 MG/10 ML SYRINGE ONE (14:38)
[2017-07-10] MEDS ORDERED: SODIUM CHLORIDE 0.9% 50 ML with ceFAZolin 2,000 MG IV ONE ×2 (15:19)
[2017-07-10] MEDS ORDERED: IV FLUID CONTINUATION 900 ML IV ONE (15:31)
[2017-07-10] MEDS ORDERED: ceFAZolin 3,000 MG in SODIUM CHLORIDE 0.9% IRRIGATIO 3,000 ML IRRIGATION ONE (15:41)
--- NOTE | 2017-07-10 15:51 | P.OP ---
Date of Procedure: 07/10/17 Preoperative Diagnosis: Subcapital fracture left hip Postoperative Diagnosis: Subcapital fracture left hip Procedure(s) Performed: Left hip hemiarthroplasty Implants: Coffey and nephew Polarstem size 7 standard Coffey [employer] Nephew tandem unipolar, 53 mm Coffey [employer] Nephew tandem unipolar 12/14 taper sleeve, +4 mm All components were press-fit. Anesthesia: spinal Surgeon: Rigoberto Landeros Internship Coordinator #1: Nohemy Werner Estimated Blood Loss (ml): 100 Pathology: other (Femoral head) Condition: stable Disposition: PACU Indications for Procedure: This is a 76-year-old female that slipped and fell and landed onto her left side. She sustained a subcapital fracture of her left hip as well as a fracture of her left proximal humerus. Her left proximal humerus fracture is nonoperative, but her left subcapital hip fracture requires of left hip hemiarthroplasty. This was discussed at length with her and her son and informed consent was obtained for a left hip hemiarthroplasty. Operative Findings: The operative findings are consistent with a subcapital fracture of the left hip. Description of Procedure: Patient was seen and evaluated in the preoperative area, consent was reviewed and the operative site was marked with a skin marker. Patient was then brought to the operating room and given 2 g of Ancef intravenously. A spinal anesthetic was administered by the anesthesia department. Patient was then placed in a lateral decubitus position and held with a Montral hip positioner. The bony prominences were well-padded and an axillary roll was placed. The hip was then prepped and draped in the usual sterile fashion. A universal timeout was then performed which confirmed the patient's name, surgical site, ALLERGIES, and procedure. A standard anterolateral approach the hip was performed. Skin and subcutaneous tissues were sharply incised with an incision centered over the tip of the greater trochanter. The incision was carefully dissected down to the fascia. The fascia was then split in line with skin incision and a Charnley retractor was gently placed. The abductors were then identified, and the anterior one third of the abductors were released off the trochanter and one large sleeve. The fracture hematoma was evacuated and the proximal femur was exposed by externally rotating the femur. The fracture site was readily visualized. Next , using an osteotomy guide, the proximal femur was osteotomized at the appropriate level of the above the lesser trochanter. This bone was then removed. Attention was then turned to the femoral head. Using a corkscrew, the femoral head was removed from the acetabulum without incident. The acetabulum was inspected, and found to have no significant arthrosis. Femoral head was then measured. Attention was then redirected to the femur. Proximal femur was re-exposed and a box osteotome was used to lateralize the proximal femur. A hand weaver was then used to locate the femoral canal. Sequential broaching was then performed to the appropriate size. The calcar was then planed and trial head and neck were placed. The hip was then gently reduced. Leg lengths were checked and found to be equal. Hip was then taken through a full range of motion was stable throughout. The hip was then gently dislocated with the aid of a bone hook. The trial head and neck were then removed. The femoral broach was then inspected and found to have a secure fit. The broach was then removed. The hip was then copiously irrigated with antibiotic solution with a pulse lavage. Components were then opened and the femoral stem was then impacted into the proximal femur. The trunnion was cleaned and dried, and the femoral head and neck were then impacted. Hip was again gently reduced. Again leg lengths were checked and found to be equal, and the hip was taken through a full range of motion and found to be stable. The hip was again irrigated with pulsatile lavage, then followed by the Irrrisept solution. The abductors were then repaired through drill holes to the bone to the greater trochanter, utilizing #5 Ethibond suture. Next the fascia was repaired with #2 strata fix suture. The subcutaneous tissue was then repaired with 3-0 Vicryl. The subcuticular tissue was then repaired with 3-0 strata fix suture. Skin was then closed with Dermabond tape. A sterile dressing was then applied and the patient was transported to the recovery room in stable condition. Internship Coordinator WILMAN Solis was required due to the complexity of surgery the need for skilled surgical first assistant. She assisted with positioning the patient , draping the patient, retraction during the surgery, and closure of the wound.
[2017-07-10] MEDS ORDERED: ONDANSETRON 4 MG/2 ML VIAL IVP PRN (16:32)
[2017-07-10] MEDS ORDERED: hydrOXYzine PAMOATE 25 MG CAP PO PRN (16:32)
[2017-07-10] MEDS ORDERED: HYDROcodone/APAP 5-325MG 1 EACH TAB PO PRN (16:32)
[2017-07-10] MEDS ORDERED: TEMAZEPAM 15 MG CAP PO PRN (16:32)
[2017-07-10] MEDS ORDERED: MAGNESIUM HYDROXIDE 2,400 MG/10 ML CUP PO PRN (16:32)
[2017-07-10 16:48] LABS: Glucose,Whole Blood 138 mg/dL (75-99)
--- NOTE | 2017-07-10 17:02 | XR ---
EXAMINATION TYPE: XR Hip Limited LT DATE OF EXAM: 07/10/2017 CLINICAL HISTORY: Left hip fracture. TECHNIQUE: Single AP portable view of left hip is obtained immediately postoperatively. COMPARISON: Left femur x-ray from 2 days ago FINDINGS: Metallic hardware from total left hip arthroplasty is seen and appears satisfactory in alig nment and position. There is evidence of recent surgery with subcutaneous gas noted laterally. IMPRESSION: Metallic hardware from left hip arthroplasty is satisfactory in position.
[2017-07-10] MEDS ORDERED: LABETALOL SYRINGE 5 MG/ML IVP ONE (17:15)
[2017-07-10] MEDS ORDERED: hydrALAZINE HCL 20 MG/ML 1 ML VIAL IV ONE (17:30)
[2017-07-10] MEDS: LEVOFLOXACIN 500MG-D5W PMX 500 MG in DEXTROSE/WATER 1 100ML.BAG IVPB SCH (18:20)
[2017-07-10] MEDS: SENNOSIDES-DOCUSATE SODIUM 1 EACH TAB PO SCH (20:23)
[2017-07-10] MEDS: MELATONIN 3 MG TABLET PO SCH (20:24)
[2017-07-10] MEDS: MORPHINE SULFATE 4 MG/ML SYRINGE IV PRN (20:25)
[2017-07-10 20:51] LABS: Glucose,Whole Blood 147 mg/dL (75-99)
--- NOTE | 2017-07-10 21:42 | PN ---
PROGRESS NOTE White female, 76 years old, with right femoral surgery, going for surgery today. Is on Accu-Chek protocol. Blood pressure has been controlled. Cleared for by surgery for surgery on the left humerus fracture. She has history atrial fibrillation. Vital signs stable. Cardiovascular S1, S2. Lungs clear. GI soft. Musculoskeletal limited. Left femoral fracture, left arm humeral fracture. ASSESSMENT: 1. Paroxysmal atrial fibrillation. 2. Urinary tract infection. 3. Diabetes mellitus type 2. 4. Left femoral fracture. 5. Left humerus fracture on Eliquis. 6. Gastroesophageal reflux disease. 7. Hypertension. She will be on subcu heparin due to surgery and then go back on Eliquis postop. Dementia, depression, asthma, dyslipidemia. Continue home medications. PROGNOSIS: Guarded. MMODL / IJN: [id number] /
[2017-07-11] MEDS: ceFAZolin IN SWFI 2 GM/20 ML SYRINGE IVP SCH ×2 (00:20→08:54)
[2017-07-11 06:57] LABS: Glucose,Whole Blood 154 mg/dL (75-99)
[2017-07-11 07:29] LABS: Basophils % (A) 0 %; Eosinophils % (A) 0 %; HCT 37.8 % (34.0-46.0); HGB 12.1 gm/dL (11.4-16.0); Hypochromasia Slight; Lymphocytes # (A) 0.8 k/uL (1.0-4.8); Lymphocytes % (A) 7 %; MCH 29.8 pg (25.0-35.0); MCHC 31.9 g/dL (31.0-37.0); MCV 93.2 fL (80.0-100.0); Mean Platelet Volume 7.3; Monocytes # (A) 0.9 k/uL (0-1.0); Monocytes % (A) 8 %; Neutrophils % (A) 83 %; Platelet Count 160 k/uL (150-450); RBC 4.05 m/uL (3.80-5.40); RDW 14.7 % (11.5-15.5); WBC 10.9 k/uL (3.8-10.6)
[2017-07-11 07:31] LABS: Anion Gap 12 mmol/L; Blood Urea Nitrogen 15 mg/dL (7-17); Calcium 8.7 mg/dL (8.4-10.2); Carbon Dioxide 21 mmol/L (22-30); Chloride 104 mmol/L (98-107); Glucose 161 mg/dL (74-99); Potassium 4.5 mmol/L (3.5-5.1); Sodium 137 mmol/L (137-145)
[2017-07-11] MEDS: HYDROcodone/APAP 5-325MG 1 EACH TAB PO PRN ×2 (08:28→20:47)
[2017-07-11] MEDS: cefTRIAXone IN SWFI 1,000 MG/10 ML SYRINGE IVP SCH (08:28)
[2017-07-11] MEDS: amLODIPine 5 MG TAB PO SCH (08:29)
[2017-07-11] MEDS: ATORVASTATIN 20 MG TAB PO SCH (08:29)
[2017-07-11] MEDS: GABAPENTIN 300 MG CAP PO SCH ×2 (08:29→20:38)
[2017-07-11] MEDS: DONEPEZIL 5 MG TAB PO SCH (08:29)
[2017-07-11] MEDS: ESCITALOPRAM 5 MG TAB PO SCH (08:29)
[2017-07-11] MEDS: metFORMIN 500 MG TAB PO SCH ×2 (08:29→20:39)
[2017-07-11] MEDS: LOSARTAN 25 MG TAB PO SCH (08:29)
[2017-07-11] MEDS: INSULIN ASPART 100 UNIT/ML 1 ML 10 ML VIAL SQ SCH ×4 (08:30→20:40)
[2017-07-11] MEDS: METOPROLOL SUCCINATE (ER) 25 MG TAB.ER.24H PO SCH ×2 (08:30→20:40)
[2017-07-11] MEDS: MEMANTINE 5 MG TAB PO SCH (08:30)
[2017-07-11] MEDS: PANTOPRAZOLE 40 MG TABLET PO SCH (08:31)
--- NOTE | 2017-07-11 08:47 | P.PN ---
Subjective Progress Note Date: 07/11/17 Principal diagnosis: Status post left hip hemiarthroplasty and closed treatment left proximal humerus fracture This is a 76 year-old female post left hip hemiarthroplasty and closed treatment of a left humeral neck fracture. This is post-op day 1. The patient was evaluated at the bedside today. The patient denies nausea, vomiting, abdominal pain, shortness of breath, and chest pain this morning. She states her pain is controlled at this time. The patient has not been up with physical therapy. Objective - Vital Signs Vital signs: Vital Signs Temp 99.0 F 07/11/17 07:17 Pulse 86 07/11/17 07:17 Resp 14 07/11/17 00:35 BP 158/79 07/11/17 07:17 Pulse Ox 93 L 07/11/17 07:17 Intake & Output 07/10/17 07/11/17 07/11/17 18:59 06:59 18:59 Intake Total 1531 180 Output Total 850 425 Balance 681 -245 Intake: IV 1531 Sodium Chloride 0.9% 1, 480 000 ml @ 60 mls/hr IV . [id number] [facility] Rx#:[id number] Oral 180 Output: Urine 750 425 Uretheral (Proctor) 250 Estimated Blood Loss 100 Other: Voiding Method Indwelling Catheter Indwelling Catheter # Voids 1 - Exam The patient does not appear in acute distress. Alert and orientated x3. Dressing is clean dry and intact. Incision appears fine with no erythema or active drainage. Calf is soft and nontender. Good foot and ankle motion without difficulty. Sling intact to the left upper extremity she has good finger and wrist range of motion. Shoulder was not put through range of motion today. Sensation and circulatory status is intact. - Labs CBC & Chem 7: 07/11/17 06:45 07/11/17 06:45 Labs: Abnormal Lab Results - Last 24 Hours (Table) 07/09/17 07/10/17 07/10/17 Range/Units 06:19 10:02 11:29 WBC (3.8-10.6) k/uL Neutrophils # (1.3-7.7) k/uL Lymphocytes # (1.0-4.8) k/uL Carbon Dioxide (22-30) mmol/L Glucose 137 H (74-99) mg/dL POC Glucose (mg/dL) 131 H (75-99) mg/dL Hemoglobin A1c 6.8 H (4.0-6.0) % 07/10/17 07/10/17 07/11/17 Range/Units 16:42 20:48 06:45 WBC 10.9 H (3.8-10.6) k/uL Neutrophils # 9.0 H (1.3-7.7) k/uL Lymphocytes # 0.8 L (1.0-4.8) k/uL Carbon Dioxide (22-30) mmol/L Glucose (74-99) mg/dL POC Glucose (mg/dL) 138 H 147 H (75-99) mg/dL Hemoglobin A1c (4.0-6.0) % 07/11/17 07/11/17 Range/Units 06:45 06:55 WBC (3.8-10.6) k/uL Neutrophils # (1.3-7.7) k/uL Lymphocytes # (1.0-4.8) k/uL Carbon Dioxide 21 L (22-30) mmol/L Glucose 161 H (74-99) mg/dL POC Glucose (mg/dL) 154 H (75-99) mg/dL Hemoglobin A1c (4.0-6.0) % Microbiology - Last 24 Hours (Table) 07/09/17 03:13 Urine Culture - Final Urine,Catheterized Assessment and Plan (1) Status post hip hemiarthroplasty Current Visit: Yes Status: Acute Code(s): Z96.649 - PRESENCE OF UNSPECIFIED ARTIFICIAL HIP JOINT SNOMED Code(s): 906069861 (2) Fall Current Visit: Yes Status: Acute Code(s): W19.XXXA - UNSPECIFIED FALL, INITIAL ENCOUNTER SNOMED Code(s): 5909021 (3) Fracture of femoral neck, left, closed Current Visit: Yes Status: Acute Code(s): S72.002A - FRACTURE OF UNSP PART OF NECK OF LEFT FEMUR, INIT SNOMED Code(s): 983081409 (4) Left humeral fracture Current Visit: Yes Status: Acute Code(s): S42.302A - UNSP FRACTURE OF SHAFT OF HUMERUS, LEFT ARM, INIT SNOMED Code(s): 98688262 Plan: 1. Continue pain control 2. Anticoagulation with Eliquis 3. Start physical therapy and ambulation today, weighbearing as tolerated to the left lower extremity. Non-weightbearing to the left upper extremity 4. Anticipate discharge to skilled rehab
[2017-07-11 11:33] LABS: Glucose,Whole Blood 210 mg/dL (75-99)
[2017-07-11] MEDS: SODIUM CHLORIDE 0.9% 1,000 ML IV SCH (11:47)
[2017-07-11] MEDS ORDERED: MORPHINE ORAL SOLN 10 MG/5 ML CUP PO PRN (13:13)
[2017-07-11] MEDS: LEVOFLOXACIN 500MG-D5W PMX 500 MG in DEXTROSE/WATER 1 100ML.BAG IVPB SCH (13:44)
--- NOTE | 2017-07-11 14:39 | P.PN ---
Subjective Progress Note Date: 07/11/17 Mrs. Corbett is a pleasant 76-year-old female past medical history significant for atrial fibrillation, hypertension, diabetes mellitus and dementia. She underwent left hip hemiarthroplasty and closed treatment for left proximal humerus fracture. Echocardiogram performed revealed mild pulmonary impaired left ventricular systolic function with ejection fraction 40-45%, basal inferior wall motion hypokinesia, basal. Septal wall motion hypokinesia, mid inferior wall motion hypokinesia, mild to moderate aortic regurgitation, mild tricuspid regurgitation and moderate concentric left ventricular pressure. Laboratory data reviewed, WBC 10.9, hemoglobin 12.1, platelets 160, sodium 137 , potassium 4.5, creatinine 0.67. Blood pressure 106/68 heart rate 71 afebrile maintaining oxygen saturation on nasal cannula 2 L. Currently being maintained on amlodipine 5 mg daily, Eliquis 5 mg twice a day, atorvastatin 20 mg daily, losartan 25 mg daily and Toprol 25 mg twice a day. Objective - Vital Signs Vital signs: Vital Signs Temp 99.0 F 07/11/17 07:17 Pulse 86 07/11/17 07:17 Resp 14 07/11/17 00:35 BP 158/79 07/11/17 07:17 Pulse Ox 93 L 07/11/17 07:17 Intake & Output 07/10/17 07/11/17 07/11/17 18:59 06:59 18:59 Intake Total 1531 180 Output Total 850 425 Balance 681 -245 Intake: IV 1531 Sodium Chloride 0.9% 1, 480 000 ml @ 60 mls/hr IV . [id number] [facility] Rx#:[id number] Oral 180 Output: Urine 750 425 Uretheral (Proctor) 250 Estimated Blood Loss 100 Other: Voiding Method Indwelling Catheter Indwelling Catheter Indwelling Catheter # Voids 1 - Exam GENERAL: Well-appearing, well-nourished and in no acute distress. NECK: Supple without JVD or thyromegaly. LUNGS: Breath sounds clear to auscultation bilaterally. Respiration equal and unlabored. No wheezes, rales or rhonchi. HEART: Irregular rate and rhythm without murmurs, rubs or gallops. S1 and S2 heard. EXTREMITIES: Normal range of motion, no edema. No clubbing or cyanosis. Peripheral pulses intact and strong. - Labs CBC & Chem 7: 07/11/17 06:45 07/11/17 06:45 Labs: Abnormal Lab Results - Last 24 Hours (Table) 07/09/17 07/10/17 07/10/17 Range/Units 06:19 16:42 20:48 WBC (3.8-10.6) k/uL Neutrophils # (1.3-7.7) k/uL Lymphocytes # (1.0-4.8) k/uL Carbon Dioxide (22-30) mmol/L Glucose (74-99) mg/dL POC Glucose (mg/dL) 138 H 147 H (75-99) mg/dL Hemoglobin A1c 6.8 H (4.0-6.0) % 07/11/17 07/11/17 07/11/17 Range/Units 06:45 06:45 06:55 WBC 10.9 H (3.8-10.6) k/uL Neutrophils # 9.0 H (1.3-7.7) k/uL Lymphocytes # 0.8 L (1.0-4.8) k/uL Carbon Dioxide 21 L (22-30) mmol/L Glucose 161 H (74-99) mg/dL POC Glucose (mg/dL) 154 H (75-99) mg/dL Hemoglobin A1c (4.0-6.0) % 07/11/17 Range/Units 11:29 WBC (3.8-10.6) k/uL Neutrophils # (1.3-7.7) k/uL Lymphocytes # (1.0-4.8) k/uL Carbon Dioxide (22-30) mmol/L Glucose (74-99) mg/dL POC Glucose (mg/dL) 210 H (75-99) mg/dL Hemoglobin A1c (4.0-6.0) % Microbiology - Last 24 Hours (Table) 07/09/17 03:13 Urine Culture - Final Urine,Catheterized Assessment and Plan Assessment: ASSESSMENT 1. Left hip hemiarthroplasty postoperative day #1 status post mechanical fall with no LOC 2. Paroxysmal atrial fibrillation on long-term anticoagulation with controlled ventricular response 3. Diabetes mellitus 4. Hypertension 5. Systolic dysfunction, ejection fraction 40-45% 6. Dyslipidemia 7. Dementia PLAN From cardiology's perspective we recommend continuing the current medical therapy. Follow-up with Dr. Torres upon discharge. We will continue to see the patient has needed for the duration of her hospital stay. Nurse Practitioner note has been reviewed, I agree with a documented findings and plan of care. Patient was seen and examined.
[2017-07-11 16:54] LABS: Glucose,Whole Blood 160 mg/dL (75-99)
[2017-07-11] MEDS: MELATONIN 3 MG TABLET PO SCH (20:38)
[2017-07-11] MEDS: APIXABAN 5 MG TAB PO SCH (20:39)
[2017-07-11] MEDS: SENNOSIDES-DOCUSATE SODIUM 1 EACH TAB PO SCH (20:39)
[2017-07-11 20:42] LABS: Glucose,Whole Blood 129 mg/dL (75-99)
--- NOTE | 2017-07-11 22:58 | PN ---
PROGRESS NOTE White female, status post left femur fracture, left radial fracture. There is history of atrial fibrillation, diabetes mellitus, hypertension, dementia, left proximal humeral fracture, ejection fraction 40% to 45%.% on echo. She has moderate aortic regurg, mild tricuspid regurg, LVH. White count 10.9, hemoglobin 12.1. On atorvastatin, losartan, Toprol, Eliquis, amlodipine. Temp 99, pulse 86, respiratory 14 to 16, blood pressure 150s over 70s, O2 93% on room air / CARDIOVASCULAR: S1, S2. LUNGS: Transmitted upper sounds, scattered wheeze, irregular rate and rhythm. Abdomen is soft, nontender. HEMATOLOGIC: Negative Latha's. PSYCH: Fair mood and affect. Hemoglobin A1c is 6.8, white count 10.9. ASSESSMENT: 1. Status post right humeral fracture. 2. Right radial fracture. 3. Left hip hemiarthroplasty. 4. Paroxysmal atrial fibrillation. 5. Hypertension. 6. Diabetes mellitus. 7. Systolic ejection fraction 40% to 45% for systolic heart failure. 8. Dyslipidemia. 9. Dementia. Continue home medications. Possible discharge to [facility] in the next 24 to 48 hours for rehabilitation. Continue on Eliquis 5 mg b.i.d. for systolic heart failure and for DVT prophylaxis Lipitor will be continued. Rocephin for urinary tract infection. Aricept for dementia. Lexapro for depression. Neurontin for chronic neuropathy. Accu-Chek protocol. Cozaar for systolic CHF. Levaquin for UTI. Please see further orders. Possible discharge in the next 24 to 48 hours to rehab center. MMODL / IJN: [id number] /
[2017-07-12] MEDS: SODIUM CHLORIDE 0.9% 1,000 ML IV SCH ×2 (02:54→21:25)
[2017-07-12 07:15] LABS: Glucose,Whole Blood 130 mg/dL (75-99)
[2017-07-12] MEDS: INSULIN ASPART 100 UNIT/ML 1 ML 10 ML VIAL SQ SCH ×4 (07:22→21:26)
--- NOTE | 2017-07-12 08:06 | P.PN ---
Subjective Progress Note Date: 07/12/17 Principal diagnosis: Left hip fracture. Status post hemiarthroplasty left hip. Left proximal humerus fracture. This is a 76-year-old female who is status post hemiarthroplasty of the left hip for subcapital hip fracture. She also has a proximal humerus fracture of the left shoulder secondary to fall. She is stable from an orthopedic standpoint. She is resting comfortably. Objective - Vital Signs Vital signs: Vital Signs Temp 99.5 F 07/11/17 20:10 Pulse 83 07/11/17 20:10 Resp 18 07/11/17 20:10 BP 112/56 07/11/17 20:10 Pulse Ox 95 07/11/17 20:10 Intake & Output 07/11/17 07/12/17 07/12/17 18:59 06:59 18:59 Intake Total 480 50 Output Total 400 Balance 480 -350 Weight 115.666 kg Intake: Oral 480 50 Output: Urine 400 Uretheral (Proctor) 400 Stool 0 Other: Voiding Method Indwelling Catheter Indwelling Catheter # Bowel Movements 0 - Exam This is a 76-year-old female in no acute distress. She is sleeping soundly. I am able to awaken her but she falls back to sleep quickly. Exam of the left shoulder reveals that her arm is in the sling. Radial pulses +2/4. Capillary refill is less than 3 seconds. Exam the left hip reveals that her dressing is clean, dry and intact. Pedal pulses +2/4. Capillary refills less than 3 seconds. - Labs CBC & Chem 7: 07/11/17 06:45 07/11/17 06:45 Labs: Abnormal Lab Results - Last 24 Hours (Table) 07/11/17 07/11/17 07/11/17 Range/Units 11:29 16:50 20:40 POC Glucose (mg/dL) 210 H 160 H 129 H (75-99) mg/dL 07/12/17 Range/Units 07:10 POC Glucose (mg/dL) 130 H (75-99) mg/dL Assessment and Plan (1) Fall Current Visit: Yes Status: Acute Code(s): W19.XXXA - UNSPECIFIED FALL, INITIAL ENCOUNTER SNOMED Code(s): 4975003 (2) Fracture of femoral neck, left, closed Current Visit: Yes Status: Acute Code(s): S72.002A - FRACTURE OF UNSP PART OF NECK OF LEFT FEMUR, INIT SNOMED Code(s): 827356887 (3) Left humeral fracture Current Visit: Yes Status: Acute Code(s): S42.302A - UNSP FRACTURE OF SHAFT OF HUMERUS, LEFT ARM, INIT SNOMED Code(s): 27519105 Plan: The clinical findings are discussed with the nursing staff. She is to continue with physical therapy. Plan discharge to inpatient rehab when cleared medically.
[2017-07-12 08:11] LABS: Basophils % (A) 0 %; Eosinophils # (A) 0.2 k/uL (0-0.7); Eosinophils % (A) 1 %; HCT 36.8 % (34.0-46.0); HGB 11.7 gm/dL (11.4-16.0); Hypochromasia Slight; Lymphocytes # (A) 1.3 k/uL (1.0-4.8); Lymphocytes % (A) 10 %; MCH 30.1 pg (25.0-35.0); MCHC 31.7 g/dL (31.0-37.0); MCV 94.8 fL (80.0-100.0); Mean Platelet Volume 7.2; Monocytes # (A) 1.2 k/uL (0-1.0); Monocytes % (A) 9 %; Neutrophils # (A) 9.9 k/uL (1.3-7.7); Neutrophils % (A) 77 %; Platelet Count 153 k/uL (150-450); RBC 3.88 m/uL (3.80-5.40); RDW 14.6 % (11.5-15.5); WBC 12.8 k/uL (3.8-10.6)
[2017-07-12 08:17] LABS: Anion Gap 11 mmol/L; Blood Urea Nitrogen 23 mg/dL (7-17); Calcium 8.5 mg/dL (8.4-10.2); Carbon Dioxide 23 mmol/L (22-30); Chloride 103 mmol/L (98-107); Glucose 125 mg/dL (74-99); Potassium 4.3 mmol/L (3.5-5.1); Sodium 137 mmol/L (137-145)
[2017-07-12] MEDS: GABAPENTIN 300 MG CAP PO SCH ×2 (09:01→21:24)
[2017-07-12] MEDS: cefTRIAXone IN SWFI 1,000 MG/10 ML SYRINGE IVP SCH (09:01)
[2017-07-12] MEDS: DONEPEZIL 5 MG TAB PO SCH (09:01)
[2017-07-12] MEDS: LOSARTAN 25 MG TAB PO SCH (09:01)
[2017-07-12] MEDS: PANTOPRAZOLE 40 MG TABLET PO SCH (09:01)
[2017-07-12] MEDS: metFORMIN 500 MG TAB PO SCH ×2 (09:01→21:25)
[2017-07-12] MEDS: METOPROLOL SUCCINATE (ER) 25 MG TAB.ER.24H PO SCH ×3 (09:01→21:24)
[2017-07-12] MEDS: ATORVASTATIN 20 MG TAB PO SCH (09:01)
[2017-07-12] MEDS: APIXABAN 5 MG TAB PO SCH ×2 (09:02→21:25)
[2017-07-12] MEDS: HYDROcodone/APAP 5-325MG 1 EACH TAB PO PRN ×2 (09:02→14:02)
[2017-07-12] MEDS: MEMANTINE 5 MG TAB PO SCH (09:02)
[2017-07-12] MEDS: amLODIPine 5 MG TAB PO SCH (09:02)
[2017-07-12] MEDS: ESCITALOPRAM 5 MG TAB PO SCH (09:02)
[2017-07-12 11:44] LABS: Glucose,Whole Blood 128 mg/dL (75-99)
[2017-07-12] MEDS ORDERED: LEVOFLOXACIN 500 MG TAB PO SCH (14:00)
--- NOTE | 2017-07-12 15:08 | PN ---
PROGRESS NOTE SUBJECTIVE: A 76-year-old white female, status post left hip femur fracture, status post ORIF left humerus fracture for which she is in a sling. She is refusing medications this morning, including her blood pressure medication. Expecting discharge to a rehab center in the next 24-48 hours. Sugars have been stable from an orthopedic standpoint. Temperature 99.5, pulse 83, respiratory rate 16 to 18, blood pressure 112/56. CARDIOVASCULAR: S1, S2. LUNGS: Clear. GI: Soft. Left arm is in a sling. Capillary refills is good. White count is 10.9, sodium and potassium normal. ASSESSMENT: 1. She has fracture from her neck, closed left femoral fracture secondary to fall. 2. Multiple other conditions include diabetes mellitus, hypertension, coronary artery disease, dyslipidemia, systolic ejection fraction of 40% to 45% on the heart. PLAN: Continue with Toprol, losartan, atorvastatin, Eliquis, amlodipine. Follow up in the [facility] under Dr. Jase Villeda's care. She has moderate tricuspid regurgitation. MMODL / IJN: [id number] /
--- NOTE | 2017-07-12 16:10 | DS ---
DISCHARGE SUMMARY DISCHARGE MEDICATION: 1. Eliquis 5 mg b.i.d. 2. Lexapro 5 mg daily. 3. Protonix 40 mg daily. 4. Toprol XL 25 mg daily. 5. Namenda 5 mg daily. 6. Cozaar 25 mg daily. 7. Aricept 5 mg daily. 8. Lipitor 20 mg daily. 9. Metformin 500 mg b.i.d. 10.Neurontin 300 mg b.i.d. 11.Lexapro 5 mg daily. 12.Lipitor 20 mg daily. 13.Melatonin 3 mg at bedtime. 14.Levaquin 500 mg p.o. daily for 4 more days. 15.Accu-Chek protocol before meals and at bedtime. 16.Amlodipine 5 mg daily. 17.La Jose 5/325 every 4 to 6 hours p.r.n. for pain. CONDITION: Stable. PROGNOSIS: Guarded. Ambulate as tolerated. DISCHARGE DIAGNOSES: 1. Systolic heart failure. 2. Fracture of the femoral neck on the left. 3. Closed left humeral fracture. 4. Hypertension. 5. Hypothyroidism. 6. Dyslipidemia. 7. Obesity. HOSPITAL COURSE OF EVENTS: This white female came in after a fall at home unlocking her mailbox. She fell backwards and broke her left hip, left humerus and left femur. The patient was treated for systolic heart failure while in the hospital. Medications were addressed. Accu- Chek protocol was given. The patient was stabilized. Some pain control after pin placement by [facility] in the left hip. PT/OT will be needed. She is going to wear a sling on her left arm for humeral fracture for 6 to 8 weeks. Follow up with [facility]. Follow up with Dr. Jase Villeda in the [facility]. Cardiac- marie she was stable during her hospital stay. Possible UTI. She was started on Rocephin and Levaquin, to continue for 4 more days. MMODL / IJN: [id number] /
[2017-07-12 17:25] LABS: Glucose,Whole Blood 122 mg/dL (75-99)
[2017-07-12 20:44] LABS: Glucose,Whole Blood 106 mg/dL (75-99)
[2017-07-12] MEDS: MELATONIN 3 MG TABLET PO SCH (21:24)
[2017-07-12] MEDS: SENNOSIDES-DOCUSATE SODIUM 1 EACH TAB PO SCH (21:25)
[2017-07-13] MEDS: HYDROcodone/APAP 5-325MG 1 EACH TAB PO PRN ×2 (03:23→08:02)
[2017-07-13 07:15] LABS: Glucose,Whole Blood 115 mg/dL (75-99)
[2017-07-13 07:36] LABS: Basophils % (A) 0 %; Eosinophils # (A) 0.3 k/uL (0-0.7); Eosinophils % (A) 4 %; HCT 32.8 % (34.0-46.0); HGB 10.2 gm/dL (11.4-16.0); Lymphocytes # (A) 1.1 k/uL (1.0-4.8); Lymphocytes % (A) 12 %; MCH 28.6 pg (25.0-35.0); MCHC 31.1 g/dL (31.0-37.0); MCV 91.8 fL (80.0-100.0); Mean Platelet Volume 7.6; Monocytes # (A) 0.8 k/uL (0-1.0); Monocytes % (A) 9 %; Neutrophils # (A) 6.8 k/uL (1.3-7.7); Neutrophils % (A) 74 %; Platelet Count 158 k/uL (150-450); RBC 3.57 m/uL (3.80-5.40); RDW 14.7 % (11.5-15.5); WBC 9.1 k/uL (3.8-10.6)
[2017-07-13] MEDS: INSULIN ASPART 100 UNIT/ML 1 ML 10 ML VIAL SQ SCH (07:38)
[2017-07-13 07:46] LABS: Anion Gap 9 mmol/L; Blood Urea Nitrogen 21 mg/dL (7-17); Calcium 8.4 mg/dL (8.4-10.2); Carbon Dioxide 25 mmol/L (22-30); Chloride 104 mmol/L (98-107); Glucose 115 mg/dL (74-99); Potassium 4.2 mmol/L (3.5-5.1); Sodium 138 mmol/L (137-145)
[2017-07-13 07:59] VITALS: BP 128/81; PULSE 81; RESP 14; TEMP 98.6
--- NOTE | 2017-07-13 08:31 | P.DS ---
Providers Date of admission: 07/08/17 16:07 Expected date of discharge: 07/13/17 Attending physician: Rigoberto Landeros Consults: 07/08/17 16:07 Consult Physician Routine Consulting Provider: Jase Villeda Consult Reason/Comments: medical management. surgical clearance Do you want consulting provider notified?: Already Contacted 07/08/17 23:14 Consult Physician Routine Consulting Provider: [facility] Consult Reason/Comments: EKG changes Do you want consulting provider notified?: Yes Primary care physician: Jase Villeda - Discharge Diagnosis(es) (1) Status post hip hemiarthroplasty Current Visit: Yes Status: Acute (2) Fall Current Visit: Yes Status: Acute (3) Fracture of femoral neck, left, closed Current Visit: Yes Status: Acute (4) Left humeral fracture Current Visit: Yes Status: Acute Hospital Course: This is a 76 year old female who presented to the hospital post fall at home and sustained a left hip fracture and nondisplaced humeral neck fracture. The patient was cleared by medicine for surgery. The patient underwent a left hip hemiarthroplasty on 07/10/[address] Rigoberto Landeros. The procedure was performed without complication or sequelae. The patient is doing well postoperatively. Labs and vital signs are stable on the day of discharge. On the day of discharge the patient's hip incision is healing well. There is minimal erythema. There is no drainage noted at this time. There is minimal soft tissue swelling to the hip and thigh. The patient has full foot and ankle motion without difficulty or pain. Neurovascular status to the leg lower extremity is intact. Sling is intact to the left upper extremity. The patient is discharged to skilled rehab in good condition. Pertinent Studies: Laboratory Tests 07/13/17 07/13/17 07/13/17 06:34 06:34 07:13 WBC 9.1 RBC 3.57 L Hgb 10.2 L Hct 32.8 L BUN 21 H POC Glucose (mg/dL) 115 H Patient Condition at Discharge: Fair Plan - Discharge Summary Discharge Rx Participant: No New Discharge Prescriptions: New HYDROcodone/APAP 5-325MG [Gregory 5-325] 1 each PO Q4-6H PRN #60 tab PRN Reason: Pain Acetaminophen Tab [Tylenol] 650 mg PO Q6HR PRN tab PRN Reason: Mild Pain Or Fever > 100.5 amLODIPine [Norvasc] 5 mg PO DAILY tab Insulin Aspart [NovoLOG (formulary)] 0 unit SQ ACHS vial Levofloxacin [Levaquin] 500 mg PO Q24H tab Melatonin 3 mg PO HS tablet Continue Apixaban [Eliquis] 5 mg PO BID Escitalopram [Lexapro] 5 mg PO DAILY Pantoprazole Sodium [Protonix] 40 mg PO DAILY Metoprolol Succinate (ER) [Toprol XL] 25 mg PO DAILY Memantine HCl [Namenda] 5 mg PO DAILY Losartan [Cozaar] 25 mg PO DAILY Donepezil HCl [Aricept] 5 mg PO DAILY Atorvastatin [Lipitor] 20 mg PO DAILY metFORMIN HCL [Glucophage] 500 mg PO BID Gabapentin [Neurontin] 300 mg PO BID Discharge Medication List Apixaban [Eliquis] 5 mg PO BID 07/08/17 [History] Atorvastatin [Lipitor] 20 mg PO DAILY 07/08/17 [History] Donepezil HCl [Aricept] 5 mg PO DAILY 07/08/17 [History] Escitalopram [Lexapro] 5 mg PO DAILY 07/08/17 [History] Gabapentin [Neurontin] 300 mg PO BID 07/08/17 [History] Losartan [Cozaar] 25 mg PO DAILY 07/08/17 [History] Memantine HCl [Namenda] 5 mg PO DAILY 07/08/17 [History] Metoprolol Succinate (ER) [Toprol XL] 25 mg PO DAILY 07/08/17 [History] Pantoprazole Sodium [Protonix] 40 mg PO DAILY 07/08/17 [History] metFORMIN HCL [Glucophage] 500 mg PO BID 07/08/17 [History] Acetaminophen Tab [Tylenol] 650 mg PO Q6HR PRN tab 07/12/17 [Rx] HYDROcodone/APAP 5-325MG [Gregory 5-325] 1 each PO Q4-6H PRN #60 tab 07/12/17 [Rx] Insulin Aspart [NovoLOG (formulary)] 0 unit SQ ACHS vial 07/12/17 [Rx] Levofloxacin [Levaquin] 500 mg PO Q24H tab 07/12/17 [Rx] Melatonin 3 mg PO HS tablet 07/12/17 [Rx] amLODIPine [Norvasc] 5 mg PO DAILY tab 07/12/17 [Rx] Follow up Appointment(s)/Referral(s): None,Stated [REFERRING] - 1-2 days Sarah Torres MD [STAFF PHYSICIAN] - 2 Weeks Rigoberto Landeros DO [Doctor of Osteopathic Medicine] - 08/02/17 1:45 pm Activity/Diet/Wound Care/Special Instructions: May bear wt as tolerated to left lower extremity Non-weightbearing to left upper extremity May shower Change dressing daily Keep incision clean and dry Maintain sling. Discharge Disposition: TRANSFER TO SNF/ECF
[2017-07-13] MEDS: metFORMIN 500 MG TAB PO SCH (08:59)
[2017-07-13] MEDS: DONEPEZIL 5 MG TAB PO SCH (08:59)
[2017-07-13] MEDS: LOSARTAN 25 MG TAB PO SCH (09:00)
[2017-07-13] MEDS: ATORVASTATIN 20 MG TAB PO SCH (09:00)
[2017-07-13] MEDS: PANTOPRAZOLE 40 MG TABLET PO SCH (09:00)
[2017-07-13] MEDS: MEMANTINE 5 MG TAB PO SCH (09:00)
[2017-07-13] MEDS: amLODIPine 5 MG TAB PO SCH (09:00)
[2017-07-13] MEDS: ESCITALOPRAM 5 MG TAB PO SCH (09:00)
[2017-07-13] MEDS: APIXABAN 5 MG TAB PO SCH (09:00)
[2017-07-13] MEDS: METOPROLOL SUCCINATE (ER) 25 MG TAB.ER.24H PO SCH (09:00)
[2017-07-13] MEDS: cefTRIAXone IN SWFI 1,000 MG/10 ML SYRINGE IVP SCH (09:00)
[2017-07-13] MEDS: GABAPENTIN 300 MG CAP PO SCH (09:00)
[2017-07-13 12:07] LABS: Glucose,Whole Blood 129 mg/dL (75-99)
== END 2017-07-13 12:00 | DRG 470 ==
LOC: EC 14:23 → 3SUR 16:07
PROVIDERS: ADMIT Orthopaedic Surgery; ATTEND Orthopaedic Surgery
PROC: 0SRS0JA Replacement of Left Hip Joint, Femoral Surface with Synthetic Substitute, Uncemented, Open Approach (ICD-10-PCS; principal; 2017-07-08)
DX: S72.012A Unspecified intracapsular fracture of left femur, initial encounter for closed fracture (principal); S52.91XA Unspecified fracture of right forearm, initial encounter for closed fracture; S42.212A Unspecified displaced fracture of surgical neck of left humerus, initial encounter for closed fracture; I50.20 Unspecified systolic (congestive) heart failure; N39.0 Urinary tract infection, site not specified; I48.0 Paroxysmal atrial fibrillation; K21.9 Gastro-esophageal reflux disease without esophagitis; E78.5 Hyperlipidemia, unspecified; I11.0 Hypertensive heart disease with heart failure; E03.9 Hypothyroidism, unspecified; F02.80 Dementia in other diseases classified elsewhere, unspecified severity, without behavioral disturbance, psychotic disturbance, mood disturbance, and anxiety; G30.9 Alzheimer's disease, unspecified; E66.9 Obesity, unspecified; E11.42 Type 2 diabetes mellitus with diabetic polyneuropathy; F41.9 Anxiety disorder, unspecified; F32.9 Major depressive disorder, single episode, unspecified; I25.10 Atherosclerotic heart disease of native coronary artery without angina pectoris; I07.1 Rheumatic tricuspid insufficiency; I35.1 Nonrheumatic aortic (valve) insufficiency; J45.909 Unspecified asthma, uncomplicated; W01.0XXA Fall on same level from slipping, tripping and stumbling without subsequent striking against object, initial encounter; R40.2412 Glasgow coma scale score 13-15, at arrival to emergency department; Z82.49 Family history of ischemic heart disease and other diseases of the circulatory system; Y92.009 Unspecified place in unspecified non-institutional (private) residence as the place of occurrence of the external cause; Z79.84 Long term (current) use of oral hypoglycemic drugs; Z79.899 Other long term (current) drug therapy; Z79.01 Long term (current) use of anticoagulants; Z87.891 Personal history of nicotine dependence; Z90.710 Acquired absence of both cervix and uterus
CPT/HCPCS: 36415; 70450; 71045; 72125; 73501; 80048; 81001; 83036; 85025; 85610; 85730; 87086; 88305; 88311; 93005; 93306; 99285

== ENCOUNTER 2017-10-03 16:55 | Inpatient (IN) | payer MEDICARE ==
--- NOTE | 2017-10-03 17:23 | ED ---
General Adult HPI - General Chief complaint: Fall Stated complaint: fall, hip pain Time Seen by Provider: 10/03/17 17:00 Source: EMS, RN notes reviewed Mode of arrival: EMS Limitations: no limitations - History of Present Illness Initial comments: This is a 77-year-old female who presents emergency department after having had a syncopal episode and falling off the toilet. Patient does complain of some left hip pain. Patient does not remember the event completely though she does remember trying to get off the toilet. Patient has some baseline dementia. There is no one with the patient give any further history. According to EMS the staff found her next to the toilet and she was unable to get up on her own so they helped her up and she complained of left hip pain. Patient denies any headache patient denies any head pain patient denies neck pain patient denies any numbness weakness. Patient denies any chest pain palpitations difficulty breathing or shortness of breath. Patient denies any abdominal pain patient denies nausea vomiting or diarrhea recently. - Related Data Home Medications Medication Instructions Recorded Confirmed Apixaban [Eliquis] 5 mg PO BID 07/08/17 07/08/17 Atorvastatin [Lipitor] 20 mg PO DAILY 07/08/17 07/08/17 Donepezil HCl [Aricept] 5 mg PO DAILY 07/08/17 07/08/17 Escitalopram [Lexapro] 5 mg PO DAILY 07/08/17 07/08/17 Gabapentin [Neurontin] 300 mg PO BID 07/08/17 07/08/17 Losartan [Cozaar] 25 mg PO DAILY 07/08/17 07/08/17 Memantine HCl [Namenda] 5 mg PO DAILY 07/08/17 07/08/17 Metoprolol Succinate (ER) [Toprol 25 mg PO DAILY 07/08/17 07/08/17 XL] Pantoprazole Sodium [Protonix] 40 mg PO DAILY 07/08/17 07/08/17 metFORMIN HCL [Glucophage] 500 mg PO BID 07/08/17 07/08/17 Previous Rx's Medication Instructions Recorded Acetaminophen Tab [Tylenol] 650 mg PO Q6HR PRN tab 07/12/17 HYDROcodone/APAP 5-325MG [[place] 1 each PO Q4-6H PRN #60 tab 07/12/17 5-325] Insulin Aspart [NovoLOG 0 unit SQ ACHS vial 07/12/17 (formulary)] Levofloxacin [Levaquin] 500 mg PO Q24H tab 07/12/17 Melatonin 3 mg PO HS tablet 07/12/17 amLODIPine [Norvasc] 5 mg PO DAILY tab 07/12/17 Allergies Allergy/AdvReac Type Severity Reaction Status Date / Time No Known Allergies Allergy Verified 10/03/17 17:01 Review of Systems ROS Statement: Those systems with pertinent positive or pertinent negative responses have been documented in the HPI. ROS Other: All systems not noted in ROS Statement are negative. Past Medical History Past Medical History: Diabetes Mellitus, GERD/Reflux, Hyperlipidemia, Hypertension, Memory Impairment Additional Past Medical History / Comment(s): alzheimers History of Any Multi-Drug Resistant Organisms: MRSA Date of last positivie culture/infection: 09/26/17 MDRO Source:: FOOT Past Surgical History: Hysterectomy Past Psychological History: Anxiety, Depression Smoking Status: Former smoker Past Alcohol Use History: None Reported Past Drug Use History: None Reported - Past Family History Father Family Medical History: Hypertension Mother Family Medical History: Memory Impairment General Exam - General Exam Comments Initial Comments: GENERAL: Patient is well-developed and well-nourished. Patient is nontoxic and well- hydrated and is in mild distress. ENT: Neck is soft and supple. No significant lymphadenopathy is noted. Oropharynx is clear. Moist mucous membranes. Neck has full range of motion without eliciting any pain. EYES: The sclera were anicteric and conjunctiva were pink and moist. Extraocular movements were intact and pupils were equal round and reactive to light. Eyelids were unremarkable. PULMONARY: Unlabored respirations. Good breath sounds bilaterally. No audible rales rhonchi or wheezing was noted. CARDIOVASCULAR: There is a regular rate and rhythm without any murmurs gallops or rubs. ABDOMEN: Soft and nontender with normal bowel sounds. SKIN: Skin is clear with no lesions or rashes and otherwise unremarkable. NEUROLOGIC: Patient is alert and oriented x3. Cranial nerves II through XII are grossly intact. Motor and sensory are also intact. Normal speech, volume and content. Symmetrical smile. MUSCULOSKELETAL: I was able to flex and extend the hip however it did elicit some anterior hip pain. LYMPHATICS: No significant lymphadenopathy is noted PSYCHIATRIC: Normal psychiatric evaluation. Normal interpersonal interactions appears functionally intact in deals appropriately with others. No signs of depression. No signs of anxiety. Limitations: no limitations Course Vital Signs 10/03/17 16:58 Temperature 97.4 F L Pulse Rate 81 Respiratory 20 Rate Blood Pressure 115/60 O2 Sat by Pulse 98 Oximetry Medical Decision Making - Medical Decision Making EKG shows normal sinus rhythm at 72 bpm CA interval 146 QRS is 100 a QT interval 394 QTC is 431. Patient's EKG shows Q waves in leads 3 aVF and lead to those are seen on old EKG. Patient had an x-ray of the hip showed no acute fracture. Patient was actually lying in bed on the left hip with legs curled. Only got the patient up to ambulate however she was too shaky to stand and she did not at that point complaining of any hip pain Spoke with Dr. Vilelda he agreed to admit the patient admitted the patient I wrote admitting orders. - Lab Data Result diagrams: 10/03/17 17:10 10/03/17 17:10 Lab Results 10/03/17 10/03/17 10/03/17 Range/Units 17:10 17:10 17:10 WBC 6.6 (3.8-10.6) k/uL RBC 4.02 (3.80-5.40) m/uL Hgb 11.7 (11.4-16.0) gm/dL Hct 37.2 (34.0-46.0) % MCV 92.5 (80.0-100.0) fL MCH 29.2 (25.0-35.0) pg MCHC 31.5 (31.0-37.0) g/dL RDW 15.1 (11.5-15.5) % Plt Count 274 (150-450) k/uL Neutrophils % 57 % Lymphocytes % 28 % Monocytes % 9 % Eosinophils % 3 % Basophils % 0 % Neutrophils # 3.8 (1.3-7.7) k/uL Lymphocytes # 1.8 (1.0-4.8) k/uL Monocytes # 0.6 (0-1.0) k/uL Eosinophils # 0.2 (0-0.7) k/uL Basophils # 0.0 (0-0.2) k/uL Hypochromasia Slight PT (9.0-12.0) sec INR (<1.2) APTT (22.0-30.0) sec Sodium 141 (137-145) mmol/L Potassium 4.1 (3.5-5.1) mmol/L Chloride 106 (98-107) mmol/L Carbon Dioxide 21 L (22-30) mmol/L Anion Gap 14 mmol/L BUN 26 H (7-17) mg/dL Creatinine 1.30 H (0.52-1.04) mg/dL Est GFR (CKD-EPI)AfAm 45 (>60 ml/min/1.73 sqM) Est GFR (CKD-EPI)NonAf 39 (>60 ml/min/1.73 sqM) Glucose 176 H (74-99) mg/dL Calcium 9.2 (8.4-10.2) mg/dL Magnesium 1.5 L (1.6-2.3) mg/dL Total Bilirubin 0.4 (0.2-1.3) mg/dL AST 23 (14-36) U/L ALT 29 (9-52) U/L Alkaline Phosphatase 145 H (38-126) U/L Total Creatine Kinase <20 L (30-135) U/L CK-MB (CK-2) 0.5 (0.0-2.4) ng/mL CK-MB (CK-2) Rel Index Troponin I <0.012 (0.000-0.034) ng/mL Total Protein 6.7 (6.3-8.2) g/dL Albumin 3.7 (3.5-5.0) g/dL 10/03/17 Range/Units 17:10 WBC (3.8-10.6) k/uL RBC (3.80-5.40) m/uL Hgb (11.4-16.0) gm/dL Hct (34.0-46.0) % MCV (80.0-100.0) fL MCH (25.0-35.0) pg MCHC (31.0-37.0) g/dL RDW (11.5-15.5) % Plt Count (150-450) k/uL Neutrophils % % Lymphocytes % % Monocytes % % Eosinophils % % Basophils % % Neutrophils # (1.3-7.7) k/uL Lymphocytes # (1.0-4.8) k/uL Monocytes # (0-1.0) k/uL Eosinophils # (0-0.7) k/uL Basophils # (0-0.2) k/uL Hypochromasia PT 11.0 (9.0-12.0) sec INR 1.1 (<1.2) APTT 25.3 (22.0-30.0) sec Sodium (137-145) mmol/L Potassium (3.5-5.1) mmol/L Chloride (98-107) mmol/L Carbon Dioxide (22-30) mmol/L Anion Gap mmol/L BUN (7-17) mg/dL Creatinine (0.52-1.04) mg/dL Est GFR (CKD-EPI)AfAm (>60 ml/min/1.73 sqM) Est GFR (CKD-EPI)NonAf (>60 ml/min/1.73 sqM) Glucose (74-99) mg/dL Calcium (8.4-10.2) mg/dL Magnesium (1.6-2.3) mg/dL Total Bilirubin (0.2-1.3) mg/dL AST (14-36) U/L ALT (9-52) U/L Alkaline Phosphatase (38-126) U/L Total Creatine Kinase (30-135) U/L CK-MB (CK-2) (0.0-2.4) ng/mL CK-MB (CK-2) Rel Index Troponin I (0.000-0.034) ng/mL Total Protein (6.3-8.2) g/dL Albumin (3.5-5.0) g/dL Disposition Clinical Impression: Syncope and collapse, Unable to ambulate, Left hip pain Disposition: ADMITTED IP TO THIS HOSP Referrals: Jase Villeda MD [Primary Care Provider] - 1-2 days Time of Disposition: 20:47
[2017-10-03 17:34] LABS: Basophils % (A) 0 %; Eosinophils # (A) 0.2 k/uL (0-0.7); Eosinophils % (A) 3 %; HCT 37.2 % (34.0-46.0); HGB 11.7 gm/dL (11.4-16.0); Hypochromasia Slight; Lymphocytes # (A) 1.8 k/uL (1.0-4.8); Lymphocytes % (A) 28 %; MCH 29.2 pg (25.0-35.0); MCHC 31.5 g/dL (31.0-37.0); MCV 92.5 fL (80.0-100.0); Mean Platelet Volume 6.6; Monocytes # (A) 0.6 k/uL (0-1.0); Monocytes % (A) 9 %; Neutrophils # (A) 3.8 k/uL (1.3-7.7); Neutrophils % (A) 57 %; Platelet Count 274 k/uL (150-450); RBC 4.02 m/uL (3.80-5.40); RDW 15.1 % (11.5-15.5); WBC 6.6 k/uL (3.8-10.6)
[2017-10-03 17:38] LABS: INR 1.1 (<1.2); Partial Thromboplastin Time 25.3 sec (22.0-30.0)
[2017-10-03 17:39] LABS: Albumin 3.7 g/dL (3.5-5.0); Calcium 9.2 mg/dL (8.4-10.2); Magnesium 1.5 mg/dL (1.6-2.3); Potassium 4.1 mmol/L (3.5-5.1); Total Bilirubin 0.4 mg/dL (0.2-1.3); Total Protein 6.7 g/dL (6.3-8.2)
[2017-10-03 17:56] LABS: Creatine Kinase <20 U/L (30-135)
[2017-10-03 18:07] LABS: Creatine Kinase MB 0.5 ng/mL (0.0-2.4); Troponin I <0.012 ng/mL (0.000-0.034)
--- NOTE | 2017-10-03 18:30 | XR ---
PROCEDURE: XR Hip LT and AP Pelvis, 3 views DATE AND TIME: 10/03/2017 6:18 PM REFERRING PHYSICIAN: Fransisco Matos MD CLINICAL INDICATION: PHH, Pain TECHNIQUE: Department protocol. COMPARISON: None FINDINGS: Left hip orthopedic hardware is intact. Right occipital femur orthopedic hardware is also intact. There is no fracture or malalignment. The soft tissues are unremarkable. IMPRESSION: NO ACUTE PROCESS.
--- NOTE | 2017-10-03 18:35 | XR ---
EXAMINATION: XR chest 2V DATE AND TIME: 10/03/2017 6:18 PM ORDERING PROVIDER: Fransisco Matos MD CLINICAL INDICATION: Chest Pain TECHNIQUE: PA and lateral COMPARISON: 07/08/2017 DESCRIPTION: The lungs are clear, and the pleural spaces are negative. The cardiac silhouette is mild moderately enlarged and the aorta is ectatic. Skeletal structures: The left humeral neck appears markedly angulated, suspicious for injury. This le ft humeral neck is not well-seen on the prior study. If there is tenderness in this area, dedicated l eft shoulder radiographs are requested. IMPRESSION: 1. NO ACUTE PULMONARY/PLEURAL PROCESS. 2. LEFT SHOULDER FINDINGS.
[2017-10-03] MEDS ORDERED: SODIUM CHLORIDE 0.9% 1,000 ML IV ONE (20:49)
--- NOTE | 2017-10-03 20:54 | CT ---
EXAMINATION: CT brain wo con DATE AND TIME: 10/03/2017 7:50 PM ORDERING PROVIDER: Fransisco Matos CLINICAL INDICATION: Pain after fall today. TECHNIQUE: Standard departmental protocol. DLP 1017.9 mGy-cm. COMPARISON: 07/08/2017 DESCRIPTION: The calvarium is intact. There is no intracranial hemorrhage. There is no mass or mass e ffect. There is no definite new attenuation defect. Remainder of the intra-axial and extra-axial comp artment examination is unremarkable. The paranasal sinuses, middle ear cavities, and mastoid sinus ai r cells are clear. The orbits are intact. IMPRESSION: NO ACUTE PROCESS.
--- NOTE | 2017-10-03 22:23 | CT ---
EXAMINATION TYPE: CT hip LT wo con DATE OF EXAM: 10/03/2017 COMPARISON: HISTORY: Left hip pain after fall injury CT DLP: 782.1 mGycm Automated exposure control for dose reduction was used. FINDINGS: Metallic beam hardening artifact creates distortion artifact. The left hip orthopedic hardware is intact. There is no fracture or malalignment. No joint effusion or trochanteric bursitis. No incidental soft tissue findings. IMPRESSION: NO ACUTE PROCESS.
--- NOTE | 2017-10-04 14:06 | P.CNOR ---
History of Present Illness - [facility] Consult date: 10/04/17 History of present illness: This is a 77-year-old female who is admitted for a syncopal episode. Orthopedics is consulted due to left hip pain. Patient has a history of dementia, but states that she fell at home yesterday and that is all that she can remember. Patient states that a neighbor called an ambulance for her. Patient states that she does not remember if she hit her head or lost consciousness. Patient states that she had surgery on the left hip, but she cannot remember when. X-rays of the left hip and pelvis along with a CT of the right hip done in the emergency room showed no fracture or dislocation. According to the patient's records she has not been able to ambulate. Patient's past medical history is significant for diabetes, GERD, asthma, hyperlipidemia, hypertension, Alzheimer's and thyroid disorder. Review of Systems ROS unobtainable: due to mental status Past Medical History Past Medical History: Atrial Fibrillation, Asthma, Diabetes Mellitus, GERD/ Reflux, Hyperlipidemia, Hypertension, Memory Impairment, Thyroid Disorder Additional Past Medical History / Comment(s): Currently being treated for wound L heel, alzheimers dementia, diet controlled diabetes, falls, falls with hip fractures/arm fracture, hypothyroid History of Any Multi-Drug Resistant Organisms: MRSA Year Discovered:: 09/26/17 MDRO Source:: FOOT Past Surgical History: Appendectomy, Hysterectomy, Joint Replacement, Orthopedic Surgery Additional Past Surgical History / Comment(s): L hip hemiarthroplasty, R total hip done in [place]. Past Anesthesia/Blood Transfusion Reactions: No Reported Reaction Smoking Status: Former smoker - Past Family History Father Family Medical History: Hypertension Mother Family Medical History: Memory Impairment Additional Family Medical History / Comment(s): Mother had alzheimer's dementia Medications and Allergies Home Medications Medication Instructions Recorded Confirmed Type Apixaban [Eliquis] 5 mg PO BID 07/08/17 10/04/17 History Atorvastatin [Lipitor] 20 mg PO DAILY 07/08/17 10/04/17 History Escitalopram [Lexapro] 5 mg PO DAILY 07/08/17 10/04/17 History Metoprolol Succinate (ER) [Toprol 25 mg PO DAILY 07/08/17 10/04/17 History XL] Pantoprazole Sodium [Protonix] 40 mg PO DAILY 07/08/17 10/04/17 History metFORMIN HCL [Glucophage] 500 mg PO BID 07/08/17 10/04/17 History Acetaminophen Tab [Tylenol] 650 mg PO Q6HR PRN tab 07/12/17 10/04/17 Rx Melatonin 3 mg PO HS tablet 07/12/17 10/04/17 Rx amLODIPine [Norvasc] 5 mg PO DAILY tab 07/12/17 10/04/17 Rx Collagenase [Santyl] 1 applic TOPICAL DAILY 10/04/17 10/04/17 History Donepezil [Aricept] 10 mg PO HS 10/04/17 10/04/17 History Gabapentin [Neurontin] 100 mg PO TID 10/04/17 10/04/17 History HYDROcodone/APAP 5-325MG [[place] 1 tab PO Q4H PRN 10/04/17 10/04/17 History 5-325] Insulin Aspart [NovoLOG See Protocol SQ ACHS 10/04/17 10/04/17 History (formulary)] Memantine [Namenda] 10 mg PO BID 10/04/17 10/04/17 History Multivitamins, Thera [Multivitamin 1 tab PO DAILY 10/04/17 10/04/17 History (formulary)] Spironolactone [Aldactone] 25 mg PO DAILY 10/04/17 10/04/17 History Triad Wound Paste 1 applic TOPICAL BID 10/04/17 10/04/17 History Allergies Allergy/AdvReac Type Severity Reaction Status Date / Time No Known Allergies Allergy Verified 10/04/17 11:34 Physical Examination On exam patient is alert and lying comfortably in bed in no acute distress. There is tenderness to palpation to the lateral aspect of the left hip. Patient has pain with logroll of the left lower extremity. There is no deformity. Left lower extremity is warm and well perfused. Patient is able to flex the left hip, but this is painful. Sensation intact. Neurovascular status and circulatory status are intact. Results X-rays of the left hip and pelvis are negative for any fracture or dislocation. Left hip hemiarthroplasty is good position and alignment. Intramedullary hip screw of the right femur is within good position and alignment. A CT of the left hip is negative for any fracture. - Labs Labs: Abnormal Lab Results - Last 24 Hours (Table) 10/03/17 10/03/17 Range/Units 17:10 17:10 Carbon Dioxide 21 L (22-30) mmol/L BUN 26 H (7-17) mg/dL Creatinine 1.30 H (0.52-1.04) mg/dL Glucose 176 H (74-99) mg/dL Magnesium 1.5 L (1.6-2.3) mg/dL Alkaline Phosphatase 145 H (38-126) U/L Total Creatine Kinase <20 L (30-135) U/L H & H 10/03/17 Range/Units 17:10 Hgb 11.7 (11.4-16.0) gm/dL Hct 37.2 (34.0-46.0) % Coagulation 10/03/17 Range/Units 17:10 INR 1.1 (<1.2) Result Diagrams: 10/03/17 17:10 10/03/17 17:10 Assessment and Plan (1) Left hip pain Current Visit: Yes Status: Acute Code(s): M25.552 - PAIN IN LEFT HIP SNOMED Code(s): 66240760 (2) Fall Current Visit: No Status: Acute Code(s): W19.XXXA - UNSPECIFIED FALL, INITIAL ENCOUNTER SNOMED Code(s): 7702639 Plan: 1. Patient had a left hip hemiarthroplasty done by Dr. Rigoberto Landeros on 2017. On x-ray the left hip hemiarthroplasty is in good position and alignment. CT and x-rays are negative for any acute fracture or dislocation. 2. Recommend weightbearing as tolerated with a walker and physical therapy. 3. No surgical intervention planned. We will continue to follow the patient closely.
--- NOTE | 2017-10-04 15:39 | XR ---
Left foot HISTORY: Trauma and pain in heel 3 views of the left foot Bone mineralization is reduced which may limit sensitivity. Alignment shows lateral angulation at the fifth digit, questionable lucency present along the distal aspect of the proximal phalanx, and joint spaces are maintained. No evident dislocation. Suspect vascular calcifications are present. There is a plantar calcaneal spur. Soft tissue swelling is noted. Some flattening the second metatarsal head appears chronic, consider bone scan if Freiberg's infraction is suspected. IMPRESSION: Correlate for point tenderness distal aspect of the proximal phalanx fifth digit, no evid ent dislocation. Findings in the distal second digit as described. Low bone mineralization may limit the exam.
[2017-10-04] MEDS ORDERED: traMADol 50 MG TAB PO SCH (18:00)
[2017-10-04] MEDS: metFORMIN 500 MG TAB PO SCH (18:02)
[2017-10-04] MEDS: INSULIN ASPART 100 UNIT/ML 1 ML 10 ML VIAL SQ SCH ×2 (18:03→20:50)
[2017-10-04] MEDS: traMADol 50 MG TAB PO PRN (18:15)
[2017-10-04 20:39] LABS: Glucose,Whole Blood 121 mg/dL (75-99)
[2017-10-04] MEDS: MEMANTINE 10 MG TAB PO SCH (20:50)
[2017-10-04] MEDS: MELATONIN 3 MG TABLET PO SCH (20:50)
[2017-10-04] MEDS: APIXABAN 5 MG TAB PO SCH (20:50)
[2017-10-04] MEDS: GABAPENTIN 100 MG CAP PO SCH (20:50)
[2017-10-04] MEDS: DONEPEZIL 10 MG TAB PO SCH (20:50)
[2017-10-05 00:29] LABS: Hemoglobin A1C 6.5 % (4.0-6.0)
[2017-10-05 06:57] LABS: Glucose,Whole Blood 126 mg/dL (75-99)
[2017-10-05] MEDS: INSULIN ASPART 100 UNIT/ML 1 ML 10 ML VIAL SQ SCH ×4 (08:00→22:11)
[2017-10-05] MEDS: ESCITALOPRAM 5 MG TAB PO SCH (08:06)
[2017-10-05] MEDS: SPIRONOLACTONE 25 MG TAB PO SCH (08:07)
[2017-10-05] MEDS: MEMANTINE 10 MG TAB PO SCH ×2 (08:07→22:11)
[2017-10-05] MEDS: PANTOPRAZOLE 40 MG TABLET PO SCH (08:07)
[2017-10-05] MEDS: metFORMIN 500 MG TAB PO SCH ×2 (08:07→15:09)
[2017-10-05] MEDS: ATORVASTATIN 20 MG TAB PO SCH (08:07)
[2017-10-05] MEDS: METOPROLOL SUCCINATE (ER) 25 MG TAB.ER.24H PO SCH (08:07)
[2017-10-05] MEDS: GABAPENTIN 100 MG CAP PO SCH ×3 (08:07→22:11)
[2017-10-05] MEDS: amLODIPine 5 MG TAB PO SCH (08:07)
[2017-10-05] MEDS: APIXABAN 5 MG TAB PO SCH ×2 (08:07→22:11)
--- NOTE | 2017-10-05 08:35 | HP ---
HISTORY AND PHYSICAL CHIEF COMPLAINT: A 77-year-old white female who fell at home between the beds. Was admitted for neurologic monitoring, hip CT, brain CT, foot x-rays. Orthopedic consultations were done. She had complained of some hip pain. Denies any head or neck pain. HOME MEDICATIONS: 1. Eliquis 5 mg b.i.d. 2. Lipitor 20 daily. 3. Aricept 5 mg daily. 4. Lexapro 5 mg daily. 5. Neurontin 300 b.i.d. 6. Cozaar 25 daily. 7. Namenda 5 mg daily. 8. Toprol-XL 25 mg daily. 9. Protonix 40 mg daily. 10.Glucophage 500 b.i.d. ALLERGIES: Negative. 14 POINT REVIEW OF SYSTEMS: Negative except for as mentioned in HPI. PAST MEDICAL HISTORY: Diabetes mellitus, GERD, dyslipidemia, hypertension, memory impairment, chronic neuropathy, Alzheimer's, MRSA, recent hip and wrist fracture, hysterectomy, anxiety, depression. FAMILY HISTORY: Father had hypertension, mother had memory impairment. PHYSICAL EXAM: Well-developed, well-nourished white female in no acute distress. HEENT: Normocephalic, atraumatic. PULMONARY: Clear lungs sounds. CARDIAC: Regular rate and rhythm. ABDOMEN: Soft, nontender. NEUROLOGIC: Cranial nerves are intact. MUSCULOSKELETAL: Some tenderness with the left anterior hip. PSYCH: Fair mood and affect. Temp 97.4, pulse 81, respiratory rate 16 to 18, blood pressure 115/60, O2 is 98. EKG sinus rhythm. X-ray of the hip, no fracture. ASSESSMENT: 1. Unstable gait. 2. Dementia. 3. Acute on chronic renal insufficiency. 4. Gait imbalance. PLAN: PT, OT, orthopedic consultation. Continue current treatments. Await orthopedic consult. Possible discharge home if doing well. MMODL / IJN: [id number] /
--- NOTE | 2017-10-05 09:03 | P.PN ---
Subjective Progress Note Date: 10/05/17 This is a 77-year-old female who is admitted after a syncopal episode. Orthopedics is following the patient for left hip pain. Patient has a history of left hip hemiarthroplasty on 07/10/2017. Patient's past medical history is significant for Alzheimer's. Patient states that she has not been out of bed yet. Patient denies any new symptoms or complaints. Patient denies any fever/ chills, numbness, weakness, tingling, abdominal pain, shortness of breath or chest pain. Objective - Vital Signs Vital signs: Vital Signs Temp 97.8 F 10/05/17 06:09 Pulse 81 10/05/17 08:15 Resp 16 10/05/17 08:15 BP 135/69 10/05/17 06:09 Pulse Ox 91 L 10/05/17 06:09 Intake & Output 10/04/17 10/05/17 10/05/17 18:59 06:59 18:59 Intake Total 225 180 Balance 225 180 Weight 117.934 kg 117.934 kg Intake: Intake, IV Titration 225 Amount Sodium Chloride 0.9% 1, 225 000 ml @ 75 mls/hr IV . [id number] ONE Rx#:[id number] Oral 180 Other: Voiding Method Bedpan Bedpan Diaper Diaper Diaper Incontinent Incontinent # Voids 1 - Exam On exam the patient is sitting comfortably in bed in no acute distress. There is no tenderness to palpation over the left hip. Patient has full active range of motion of the left hip with mild pain with internal and external rotation. Minimal pain with log roll of the left lower extremity today. Calf is soft and nontender to palpation. Patient has full foot and ankle motion without pain or difficulty. Left lower extremity is warm and well perfused. Neurovascular status and circulatory status are intact. - Labs CBC & Chem 7: 10/03/17 17:10 10/03/17 17:10 Labs: Abnormal Lab Results - Last 24 Hours (Table) 10/04/17 10/04/17 10/05/17 Range/Units 17:10 20:23 06:56 POC Glucose (mg/dL) 121 H 126 H (75-99) mg/dL Hemoglobin A1c 6.5 H (4.0-6.0) % Microbiology - Last 24 Hours (Table) 10/04/17 17:15 Gram Stain - Preliminary Foot - Left Wound Culture - Preliminary 10/04/17 17:15 Anaerobic Culture - Preliminary Heel - Left Assessment and Plan (1) Left hip pain Current Visit: Yes Status: Acute Code(s): M25.552 - PAIN IN LEFT HIP SNOMED Code(s): 87924077 (2) Fall Current Visit: No Status: Acute Code(s): W19.XXXA - UNSPECIFIED FALL, INITIAL ENCOUNTER SNOMED Code(s): 3297102 Plan: 1. X-rays of the left hip show left hip hemiarthroplasty in good position and alignment. CT and x-rays are negative for any acute fracture or dislocation. 2. Recommend weightbearing as tolerated with a walker and physical therapy. 3. No surgical intervention planned. We will continue to follow the patient closely.
[2017-10-05 11:42] LABS: Glucose,Whole Blood 101 mg/dL (75-99)
[2017-10-05] MEDS: MULTIVITAMINS, THERA 1 EACH TAB PO SCH (12:00)
[2017-10-05] MEDS ORDERED: VANCOMYCIN IV PER PHARMACY 1 EACH MISC MISCELLANE PRN (13:47)
[2017-10-05] MEDS: cefTRIAXone IN SWFI 2,000 MG/20 ML SYRINGE IVP SCH (14:50)
[2017-10-05] MEDS ORDERED: VANCOMYCIN 1,750 MG in SODIUM CHLORIDE 0.9% 500 ML IVPB ONE (15:00)
[2017-10-05 16:42] LABS: Glucose,Whole Blood 138 mg/dL (75-99)
--- NOTE | 2017-10-05 16:44 | CONS ---
CONSULTATION DATE OF SERVICE: 10/05/2017 REASON FOR CONSULTATION: Left heel infected ulcer. HISTORY OF PRESENT ILLNESS: The patient is a 77-year-old female who is a resident of a senior care. The patient has been brought in to the [facility] ER on 10/03/2017 after apparently the patient did have a fall from a toilet. The patient was noticed by the staff to be on the side of the toilet. She was unable to get up by herself so they helped her. The patient is complaining of pain to the left hip area. No headache. No nausea, vomiting, or any diarrhea. With these symptoms, the patient has been brought into the ER. The patient did have x-rays of the hip and are negative for any fracture. The patient noticed to have a wound on her left heel area for which I was asked to see the patient for further recommendation regarding local care. The patient did have underlying baseline dementia and she was unable to tell me when exactly she had this wound. She has been complaining of some pain into the heel wound area; however, unable to elaborate it any further. She was unable to tell me exactly for the same. Looking at the microbiological data here while in bed at this hospital. The patient did have cultures obtained on the on the left foot which are currently going Proteus mirabilis and MRSA. She did have a repeat cultures obtained last evening, which are currently pending. Overall history remains to be limited as the patient did have underlying dementia and unable to provide any history; however, no fever has been recorded or elevated white count since the patient has been admitted hospital. REVIEW OF SYSTEMS: Could not be reliably obtained. The positive points have been mentioned in the HPI. PAST MEDICAL HISTORY: Significant for diabetes mellitus, gastroesophageal reflux disease, hypertension, hyperlipidemia, Alzheimer's dementia, anxiety, depression. PAST SURGICAL HISTORY: Hysterectomy. SOCIAL HISTORY: Remote history of smoking. No drinking or drug use. FAMILY HISTORY: Mother with memory impairment. Father with hypertension. ALLERGIES: No known drug allergies. MEDICATION: Medications include the patient is currently on Tylenol, Norvasc, Eliquis, Lipitor, Aricept, Lexapro, Neurontin, NovoLog, melatonin, Namenda, Glucophage, Toprol-XL, Theragran, Protonix, Aldactone and Ultram. EXAMINATION: Blood pressure is 135/69 with a pulse of 81, temperature of 97.8. She is 91% on room air. General description is an elderly female lying in bed in no distress. No tachypnea or accessory muscle of respiration use. HEENT: Shows no pallor or scleral icterus. Oral mucosa membrane is moist with no erythema or thrush. NECK: Trachea central. No thyromegaly. LUNGS: Unlabored breathing. Clear to auscultation anteriorly. HEART: S1, S2. Regular rate and rhythm. ABDOMEN: Soft, no tenderness. No guarding. No rigidity. EXTREMITIES: No edema feet. SKIN EXAMINATION: No rash or mass palpable. Examination left heel, the patient did have unstageable pressure ulcer with some slough tissue at the base. No significant surrounding erythema or foul smelling drainage was noticed. NEUROLOGICAL: Patient is awake, alert, oriented x3. Mood and affect normal. LABS: Hemoglobin is 11.7, white count 6.6, BUN of 26, creatinine 1.30. Electrolytes have been normal. Wound culture 09/26 with MRSA reported . DIAGNOSTIC IMPRESSION AND PLAN: Patient with left heel pressure ulcer, unstageable to stage III in a patient who does have soft tissue at the base, some necrotic area with outpatient culture positive for MRSA and Proteus mirabilis. It is not very clear if the patient sees any treatment for the same or what the local treatment patient has. PLAN: 1. Recommend obtaining a vascular surgery evaluation for debridement of this wound. 2. Local wound care with Medihoney followed by moist dressing keep the area off the pressure. 3. Vancomycin pharmacy to dose target trough of 15 while watching the kidney function as well as blood pressure very closely along with Rocephin 2 g daily. 4. Depending upon clinical response as well as cultures will adjust her medications further if needed. Thank you for this consultation. Will follow this patient along with you. We will also obtain a baseline sed rate and CRP. MMODL / IJN: [id number] /
[2017-10-05 20:13] LABS: Glucose,Whole Blood 113 mg/dL (75-99)
[2017-10-05] MEDS: MELATONIN 3 MG TABLET PO SCH (22:11)
[2017-10-05] MEDS: DONEPEZIL 10 MG TAB PO SCH (22:11)
--- NOTE | 2017-10-05 22:50 | PN ---
PROGRESS NOTE SUBJECTIVE: This is a 77-year-old white female with inability to ambulate, generalized weakness. She is giving appropriate answers today. Discussed the case with her son, who back to [facility], as they say she was not able to ambulate when she came there out of rehab, so he does not want her to go back. Mentally she appears at her baseline to myself. Answering questions appropriately. CARDIOVASCULAR: S1, S2. Lungs are clear. GI: Soft. HEMATOLOGY: Negative Homans. ASSESSMENT: 1. Inability to ambulate. 2. Syncope. Continue current treatments, PT/OT. The patient will be sent back to [facility] tomorrow, as she has been cleared for discharge. MMODL / IJN: [id number] /
[2017-10-06] MEDS ORDERED: VANCOMYCIN 1,750 MG in SODIUM CHLORIDE 0.9% 500 ML IVPB SCH (06:00)
[2017-10-06 07:03] LABS: Glucose,Whole Blood 108 mg/dL (75-99)
--- NOTE | 2017-10-06 07:40 | P.PN ---
Subjective Progress Note Date: 10/06/17 This is a 77-year-old female who is admitted after a syncopal episode. Orthopedics is following the patient for left hip pain. Patient has a history of left hip hemiarthroplasty on 07/10/2017. Patient's past medical history is significant for Alzheimer's. Patient is a poor historian. According to the nursing staff, the patient has not been able to walk with physical therapy yet due to the infection of her left heel which is to be debrided today. Patient denies any new symptoms or complaints. Patient denies any fever/chills, numbness , weakness, tingling, abdominal pain, shortness of breath or chest pain. Objective - Vital Signs Vital signs: Vital Signs Temp 99.3 F 10/05/17 23:00 Pulse 89 10/05/17 23:00 Resp 16 10/05/17 23:00 BP 93/56 10/05/17 23:00 Pulse Ox 92 L 10/05/17 23:00 Intake & Output 10/05/17 10/06/17 10/06/17 18:59 06:59 18:59 Intake Total 160 710 Output Total 1 Balance 159 710 Weight 117.934 kg Intake: Oral 160 710 Output: Urine/Stool Mix 1 Other: Voiding Method Diaper Diaper Incontinent Incontinent # Voids 2 1 - Exam On exam the patient is resting comfortably in bed in no acute distress. There is no tenderness to palpation over the left hip. Patient has full passive range of motion of the left hip and is lying with her left hip in flexion. Minimal pain with log roll of the left lower extremity today. Calf is soft and nontender to palpation. Left lower extremity is warm and well perfused. Neurovascular status and circulatory status are intact. - Labs CBC & Chem 7: 10/03/17 17:10 10/03/17 17:10 Labs: Abnormal Lab Results - Last 24 Hours (Table) 10/04/17 10/05/17 10/05/17 Range/Units 17:10 11:40 16:41 POC Glucose (mg/dL) 101 H 138 H (75-99) mg/dL Hemoglobin A1c 6.5 H (4.0-6.0) % 10/05/17 10/06/17 Range/Units 20:12 06:57 POC Glucose (mg/dL) 113 H 108 H (75-99) mg/dL Hemoglobin A1c (4.0-6.0) % Microbiology - Last 24 Hours (Table) 10/04/17 17:15 Gram Stain - Preliminary Foot - Left Wound Culture - Preliminary Gram Neg Bacilli Group D Enterococcus Assessment and Plan (1) Left hip pain Current Visit: Yes Status: Acute Code(s): M25.552 - PAIN IN LEFT HIP SNOMED Code(s): 96865346 (2) Fall Current Visit: No Status: Acute Code(s): W19.XXXA - UNSPECIFIED FALL, INITIAL ENCOUNTER SNOMED Code(s): 2948825 Plan: 1. X-rays of the left hip show left hip hemiarthroplasty in good position and alignment. CT and x-rays are negative for any acute fracture or dislocation. 2. Recommend weightbearing as tolerated with a walker and physical therapy. However, patient is unable to do this due to the left heel infection that is to be debrided today. 3. No surgical intervention planned. We will continue to follow the patient closely.
[2017-10-06] MEDS: INSULIN ASPART 100 UNIT/ML 1 ML 10 ML VIAL SQ SCH ×4 (07:48→21:12)
[2017-10-06 08:01] LABS: Glucose,Whole Blood 104 mg/dL (75-99)
[2017-10-06] MEDS: APIXABAN 5 MG TAB PO SCH ×2 (08:30→21:11)
--- NOTE | 2017-10-06 08:33 | CT ---
EXAMINATION TYPE: CODE STROKE: CT brain wo contrast DATE OF EXAM: 10/06/2017 COMPARISON: 07/08/2017 HISTORY: 77-year-old female confusion, altered mental status TECHNIQUE: Examination was done in axial plane without intravenous contrast. Coronal and sagittal r econstructions performed. CT DLP: 1027.2 mGycm Automated exposure control for dose reduction was used. FINDINGS: There is no evidence of acute intracranial hemorrhage, acute ischemic changes, mass, mass-effect, or extra-axial fluid collection. There is no effacement of cerebral sulci or basal subarachnoid cister ns. There is no hydrocephalus. There is no midline shift. Wu-white matter distinction is preserv ed. Redemonstrated mild generalized supratentorial volume loss and confluent white matter hypodensities i n both cerebral hemispheres. Moderate mucosal thickening throughout the ethmoid air cells and maxillary sinuses with trace air-flu id level in the left maxillary sinus. Mastoid air cells well pneumatized. Orbits and globes are intac t. IMPRESSION: 1. Similar mild generalized atrophy and confluent changes of chronic small vessel ischemic disease. 2. No acute intracranial abnormality seen. If symptoms persist, consider follow-up CT or MRI. 3. Acute on chronic left maxillary sinusitis.
[2017-10-06 09:03] LABS: Basophils % (A) 0 %; Eosinophils # (A) 0.4 k/uL (0-0.7); Eosinophils % (A) 6 %; HGB 11.3 gm/dL (11.4-16.0); Hypochromasia Slight; Lymphocytes # (A) 1.5 k/uL (1.0-4.8); Lymphocytes % (A) 25 %; MCH 29.1 pg (25.0-35.0); MCHC 31.3 g/dL (31.0-37.0); MCV 93.1 fL (80.0-100.0); Mean Platelet Volume 6.8; Monocytes # (A) 0.6 k/uL (0-1.0); Monocytes % (A) 9 %; Neutrophils # (A) 3.5 k/uL (1.3-7.7); Neutrophils % (A) 58 %; Platelet Count 192 k/uL (150-450); RBC 3.87 m/uL (3.80-5.40); RDW 15.1 % (11.5-15.5); WBC 6.1 k/uL (3.8-10.6)
[2017-10-06 09:10] LABS: Albumin 3.2 g/dL (3.5-5.0); Calcium 8.5 mg/dL (8.4-10.2); Potassium 4.4 mmol/L (3.5-5.1); Total Bilirubin 0.3 mg/dL (0.2-1.3); Total Protein 6.1 g/dL (6.3-8.2)
--- NOTE | 2017-10-06 09:18 | CONS ---
CONSULTATION This is a 77-year-old female a resident of assisted. The patient had history of fall and she has been admitted and found to have left heel pressure ulcer with skin necrosis and tissue necrosis noted. The patient was seen by Infectious Disease. Cultures came back as MRSA. Patient has IV antibiotic. I was consulted for wound debridement. MEDICAL HISTORY: Diabetes mellitus, hypertension, hyperlipidemia, Alzheimer's dementia, anxiety and depression. PHYSICAL EXAMINATION: On examination, patient was seen in her room. Neck is supple. Chest is clear on auscultation. ABDOMEN: Soft. Femoral pulses are present. Left heel has necrotic wound with devitalized tissue. PLAN: Debridement of the wound and continue with IV antibiotic and follow with you. MMODL / IJN: [id number] /
[2017-10-06 11:09] LABS: Glucose,Whole Blood 148 mg/dL (75-99)
[2017-10-06] MEDS: metFORMIN 500 MG TAB PO SCH ×2 (13:03→17:02)
[2017-10-06] MEDS: amLODIPine 5 MG TAB PO SCH (13:37)
[2017-10-06] MEDS: MULTIVITAMINS, THERA 1 EACH TAB PO SCH (13:38)
[2017-10-06] MEDS: GABAPENTIN 100 MG CAP PO SCH ×3 (13:39→21:12)
[2017-10-06] MEDS: PANTOPRAZOLE 40 MG TABLET PO SCH (13:39)
[2017-10-06] MEDS: ESCITALOPRAM 5 MG TAB PO SCH (13:39)
[2017-10-06] MEDS: MEMANTINE 10 MG TAB PO SCH ×2 (13:39→21:12)
[2017-10-06] MEDS: METOPROLOL SUCCINATE (ER) 25 MG TAB.ER.24H PO SCH (13:40)
[2017-10-06] MEDS: ATORVASTATIN 20 MG TAB PO SCH (13:40)
[2017-10-06] MEDS: SPIRONOLACTONE 25 MG TAB PO SCH (13:41)
[2017-10-06 17:01] LABS: Glucose,Whole Blood 133 mg/dL (75-99)
[2017-10-06] MEDS: cefTRIAXone IN SWFI 2,000 MG/20 ML SYRINGE IVP SCH (17:01)
[2017-10-06] MEDS: VANCOMYCIN 1,750 MG in SODIUM CHLORIDE 0.9% 500 ML IVPB SCH (18:03)
[2017-10-06 19:54] LABS: Glucose,Whole Blood 132 mg/dL (75-99)
--- NOTE | 2017-10-06 20:22 | P.CNNES ---
History of Present Illness Consult date: 10/06/17 Reason for Consult: Patient with altered mental status and seizure like episode. Code stroke. History of Present Illness: This patient is a 77-year-old right-handed white female who is a resident in a outside shelter. She has a history of multiple falls over the last several months. She underwent a left hip hemiarthroplasty back on 07/10/2017. She apparently had a recent fall and was brought into the hospital for further evaluation. She had developed a left heel ulcer with skin necrosis and tissue necrosis. Infectious disease is following her closely and she has been placed on IV antibiotic therapy after debridement was done. Patient is a very poor historian. She does have history of underlying Alzheimer's dementia. Apparently this morning she had an episode in which she became unresponsive and began shaking all over. A code stroke was initiated but this was canceled as the patient had NIH stroke scale of 2. She was sent for a computed tomography scan of the brain this morning which revealed mild generalized atrophy and chronic small vessel ischemic changes. No evidence for acute intracranial abnormality. She had evidence of a left maxillary sinusitis. Once again there was no clear evidence of stroke. She was sent for a EEG this afternoon which was reviewed. EEG also fails to reveal any evidence of epileptic seizure focus. According to the registered vascular technologist (rvt) the patient had [id number] events just prior to being hooked up to the monitor. Patient is now back to her baseline level of function. She is able to follow simple commands. She is still quite confused secondary to her underlying dementia. Once again there was no evidence of seizure activity on her EEG that was completed today but diffuse slowing consistent with a diffuse encephalopathy. Patient is a very poor historian. It is unclear whether she is able to ambulate much at the shelter. She is currently taking a combination of Aricept and Namenda for treatment of her underlying dementia. Neurology is now been consulted for further evaluation and recommendations. Review of Systems Constitutional: Denies chills, Denies fever Eyes: denies blurred vision, denies pain Ears, nose, mouth and throat: Denies headache, Denies sore throat Cardiovascular: Denies chest pain, Denies shortness of breath Respiratory: Denies cough Gastrointestinal: Denies abdominal pain, Denies diarrhea, Denies nausea, Denies vomiting Genitourinary: Denies dysuria, Denies hematuria Musculoskeletal: Denies myalgias Integumentary: Denies pruritus, Denies rash Neurological: Reports change in mentation, Reports confusion, Reports convulsions, Reports memory loss, Denies numbness, Denies weakness Psychiatric: Reports difficulty concentrating, Reports disorientation, Reports memory loss, Reports mood swings, Denies anxiety, Denies depression Endocrine: Denies fatigue, Denies weight change Past Medical History Past Medical History: Atrial Fibrillation, Asthma, Diabetes Mellitus, GERD/ Reflux, Hyperlipidemia, Hypertension, Memory Impairment, Thyroid Disorder Additional Past Medical History / Comment(s): Currently being treated for wound L heel, alzheimers dementia, diet controlled diabetes, falls, falls with hip fractures/arm fracture, hypothyroid History of Any Multi-Drug Resistant Organisms: MRSA Date of last positivie culture/infection: 09/26/17 MDRO Source:: FOOT Past Surgical History: Appendectomy, Hysterectomy, Joint Replacement, Orthopedic Surgery Additional Past Surgical History / Comment(s): L hip hemiarthroplasty, R total hip done in [place]. Past Anesthesia/Blood Transfusion Reactions: No Reported Reaction Smoking Status: Former smoker - Past Family History Father Family Medical History: Hypertension Mother Family Medical History: Memory Impairment Additional Family Medical History / Comment(s): Mother had alzheimer's dementia Medications and Allergies Home Medications Medication Instructions Recorded Confirmed Type Apixaban [Eliquis] 5 mg PO BID 07/08/17 10/04/17 History Atorvastatin [Lipitor] 20 mg PO DAILY 07/08/17 10/04/17 History Escitalopram [Lexapro] 5 mg PO DAILY 07/08/17 10/04/17 History Metoprolol Succinate (ER) [Toprol 25 mg PO DAILY 07/08/17 10/04/17 History XL] Pantoprazole Sodium [Protonix] 40 mg PO DAILY 07/08/17 10/04/17 History metFORMIN HCL [Glucophage] 500 mg PO BID 07/08/17 10/04/17 History Acetaminophen Tab [Tylenol] 650 mg PO Q6HR PRN tab 07/12/17 10/04/17 Rx Melatonin 3 mg PO HS tablet 07/12/17 10/04/17 Rx amLODIPine [Norvasc] 5 mg PO DAILY tab 07/12/17 10/04/17 Rx Collagenase [Santyl] 1 applic TOPICAL DAILY 10/04/17 10/04/17 History Donepezil [Aricept] 10 mg PO HS 10/04/17 10/04/17 History Gabapentin [Neurontin] 100 mg PO TID 10/04/17 10/04/17 History HYDROcodone/APAP 5-325MG [Heiskell 1 tab PO Q4H PRN 10/04/17 10/04/17 History 5-325] Insulin Aspart [NovoLOG See Protocol SQ ACHS 10/04/17 10/04/17 History (formulary)] Memantine [Namenda] 10 mg PO BID 10/04/17 10/04/17 History Multivitamins, Thera [Multivitamin 1 tab PO DAILY 10/04/17 10/04/17 History (formulary)] Spironolactone [Aldactone] 25 mg PO DAILY 10/04/17 10/04/17 History Triad Wound Paste 1 applic TOPICAL BID 10/04/17 10/04/17 History Allergies Allergy/AdvReac Type Severity Reaction Status Date / Time No Known Allergies Allergy Verified 10/04/17 11:34 Physical Examination - Vital Signs Vital Signs: Vital Signs Temp Pulse Pulse Resp BP BP Pulse Ox 10/06/17 10:50 97.8 F 84 14 133/82 94 L 10/06/17 08:29 73 113/63 92 L 10/06/17 08:04 77 18 86/56 93 L 10/06/17 08:02 82 18 84/62 92 L 10/05/17 23:00 99.3 F 89 16 93/56 92 L 10/05/17 16:35 83 15 10/05/17 15:27 97.6 F 83 15 106/58 91 L Intake and Output 10/05/17 10/06/17 10/06/17 22:59 06:59 14:59 Intake Total 710 Balance 710 Intake: Oral 710 Other: Voiding Method Diaper Diaper Diaper Incontinent Incontinent Incontinent # Voids 2 1 - Constitutional General appearance: average body habitus, cooperative - EENT EENT: PERRL, mucous membranes moist - Respiratory Respiratory: lungs clear, normal breath sounds - Cardiovascular Cardiovascular: regular rate, normal S1, normal S2 Extremities: no peripheral edema bilaterally - Gastrointestinal Gastrointestinal: normoactive bowel sounds - Integumentary Integumentary: normal - Neurologic Cranial nerve examination: PERRL, EOMI, VFF, V1/V2/V3 grossly intact, face symmetric, tongue midline, intact gag reflex, intact corneal reflex, normal palatal elevation Speech examination: intact Sensorimotor examination: intact Motor examination - right side: 4/5: biceps, triceps, wrist flexion, wrist extension, parimutuel ticket checker, hip flexors, knee extensors, dorsiflexion, toe extension (EHL) , plantarflexion Motor examination - left side: 4/5: biceps, triceps, wrist flexion, wrist extension, parimutuel ticket checker, hip flexors, knee extensors, dorsiflexion, toe extension (EHL) , plantarflexion Detailed sensory examination: intact Reflex and gait examination: intact Reflexes: 1+: ankle, bicep, knee, tricep - Musculoskeletal Musculoskeletal: no pain - Psychiatric Psychiatric: mood/affect appropriate, cooperative Results - Laboratory Findings CBC and BMP: 10/06/17 08:41 10/06/17 08:41 Abnormal Lab Findings: Abnormal Labs 10/03/17 10/03/17 10/04/17 17:10 17:10 17:10 Hgb Carbon Dioxide 21 L BUN 26 H Creatinine 1.30 H Glucose 176 H POC Glucose (mg/dL) Hemoglobin A1c 6.5 H Magnesium 1.5 L Alkaline Phosphatase 145 H Total Creatine Kinase <20 L Total Protein Albumin 10/04/17 10/05/17 10/05/17 20:23 06:56 11:40 Hgb Carbon Dioxide BUN Creatinine Glucose POC Glucose (mg/dL) 121 H 126 H 101 H Hemoglobin A1c Magnesium Alkaline Phosphatase Total Creatine Kinase Total Protein Albumin 10/05/17 10/05/17 10/06/17 16:41 20:12 06:57 Hgb Carbon Dioxide BUN Creatinine Glucose POC Glucose (mg/dL) 138 H 113 H 108 H Hemoglobin A1c Magnesium Alkaline Phosphatase Total Creatine Kinase Total Protein Albumin 10/06/17 10/06/17 10/06/17 08:00 08:41 08:41 Hgb 11.3 L Carbon Dioxide BUN Creatinine Glucose 110 H POC Glucose (mg/dL) 104 H Hemoglobin A1c Magnesium Alkaline Phosphatase 138 H Total Creatine Kinase Total Protein 6.1 L Albumin 3.2 L 10/06/17 11:08 Hgb Carbon Dioxide BUN Creatinine Glucose POC Glucose (mg/dL) 148 H Hemoglobin A1c Magnesium Alkaline Phosphatase Total Creatine Kinase Total Protein Albumin Assessment and Plan (1) Syncope and collapse Current Visit: Yes Status: Acute Code(s): R55 - SYNCOPE AND COLLAPSE SNOMED Code(s): 204674917 (2) Dementia Current Visit: Yes Status: Acute Code(s): F03.90 - UNSPECIFIED DEMENTIA WITHOUT BEHAVIORAL DISTURBANCE SNOMED Code(s): 74468523 (3) Left hip pain Current Visit: Yes Status: Acute Code(s): M25.552 - PAIN IN LEFT HIP SNOMED Code(s): 73223860 (4) Status post hip hemiarthroplasty Current Visit: No Status: Acute Code(s): Z96.649 - PRESENCE OF UNSPECIFIED ARTIFICIAL HIP JOINT SNOMED Code(s): 589213325 Plan: This patient is a 77-year-old right-handed white female who was admitted to Hospital after having a fall at her shelter. She is a very poor historian and has advanced Alzheimer's dementia. She is currently being treated for dementia and is taking Aricept and Namenda. Patient had an event this morning suggesting possibility of a seizure versus acute stroke. A code stroke was initiated but then was canceled as her NIH stroke scale was minimal. She underwent a computed tomography scan of the brain results which are noted above. No evidence of any acute stroke on the CAT scan of the brain. The patient is a poor historian. She did undergo routine EEG today which was reviewed and is moderately slow. There is no evidence of any epileptic seizure focus. At this point she does not require anticonvulsant therapy. Would continue current workup for underlying sepsis as she does have some degree of encephalopathy. Her overall prognosis at this time remains very guarded. We will continue close neurological follow-up for the patient during this admission. Time with Patient: Greater than 30
[2017-10-06] MEDS: MELATONIN 3 MG TABLET PO SCH (21:12)
[2017-10-06] MEDS: DONEPEZIL 10 MG TAB PO SCH (21:12)
[2017-10-07] MEDS: VANCOMYCIN 1,750 MG in SODIUM CHLORIDE 0.9% 500 ML IVPB SCH ×2 (05:39→17:48)
[2017-10-07 07:22] LABS: Glucose,Whole Blood 101 mg/dL (75-99)
[2017-10-07] MEDS: INSULIN ASPART 100 UNIT/ML 1 ML 10 ML VIAL SQ SCH ×4 (07:24→20:29)
[2017-10-07 07:25] LABS: Calcium 8.6 mg/dL (8.4-10.2); Potassium 4.6 mmol/L (3.5-5.1)
[2017-10-07] MEDS: PANTOPRAZOLE 40 MG TABLET PO SCH (08:07)
[2017-10-07] MEDS: metFORMIN 500 MG TAB PO SCH ×2 (08:07→17:43)
[2017-10-07] MEDS: amLODIPine 5 MG TAB PO SCH (08:08)
[2017-10-07] MEDS: SPIRONOLACTONE 25 MG TAB PO SCH (08:08)
[2017-10-07] MEDS: GABAPENTIN 100 MG CAP PO SCH ×3 (08:08→21:46)
[2017-10-07] MEDS: MEMANTINE 10 MG TAB PO SCH ×2 (08:08→20:22)
[2017-10-07] MEDS: ESCITALOPRAM 5 MG TAB PO SCH (08:08)
[2017-10-07] MEDS: ATORVASTATIN 20 MG TAB PO SCH (08:08)
[2017-10-07] MEDS: MULTIVITAMINS, THERA 1 EACH TAB PO SCH (08:08)
[2017-10-07] MEDS: APIXABAN 5 MG TAB PO SCH ×2 (08:08→20:22)
[2017-10-07] MEDS: METOPROLOL SUCCINATE (ER) 25 MG TAB.ER.24H PO SCH (08:09)
--- NOTE | 2017-10-07 08:16 | PN ---
PROGRESS NOTE DATE OF SERVICE: 10/06/2017. REASON FOR FOLLOWUP: Left heel pressure ulcer infected. INTERVAL HISTORY: The patient is currently afebrile. She is breathing comfortably. Denies significant chest pain or cough. No abdominal pain and no worsening pain to the left heel area. The patient is seen by Vascular Surgeon with a plan for debridement of the wound. EXAMINATION: Blood pressure is 133/67 with a pulse of 78, temperature 97.6. He is 98% on 2 L nasal cannula. General description is an elderly female lying in bed in no distress. RESPIRATORY SYSTEM: Unlabored breathing. Clear to auscultation anteriorly. HEART: S1, S2. Regular rate and rhythm. ABDOMEN: Soft, no tenderness. Left heel is currently dressed. No obvious drainage on the dressing. LABS: Hemoglobin 11.2, white count 6.1, BUN of 13, creatinine 0.80. Cultures done here showing a group D Enterococcus and gram-negative bacilli. DIAGNOSTIC IMPRESSION AND PLAN: Patient with left heel infected pressure ulcer. Will continue local wound care with Medihoney. Await further debridement. Continue with the vancomycin and Rocephin while watching the kidney function closely. Continue supportive care. MMODL / IJN: [id number] /
[2017-10-07] MEDS ORDERED: LIDOCAINE 1% INJ 10MG/ML (20 ML MDV) SQ ONE (09:12)
--- NOTE | 2017-10-07 09:42 | P.PN ---
Subjective Progress Note Date: 10/07/17 Principal diagnosis: Recent history of left hip hemiarthroplasty This is a 77 year-old female post left hip hemiarthroplasty on 07/10/2017. She is admitted for a syncopal episode and inability to ambulate. She was found to have a wound on her left heel that requires debriding by Dr. Robins. Unfortunately yesterday the patient developed altered mental status and possible seizure activity and a code stroke was called. She has been evaluated by neurology. Per nursing staff the patient appears to have improved mental status today. She is anticipated to have her debridement of her heel today by Dr. Robins. Objective - Vital Signs Vital signs: Vital Signs Temp 97.5 F L 10/07/17 06:36 Pulse 77 10/07/17 06:36 Resp 20 10/07/17 06:36 BP 100/67 10/07/17 06:36 Pulse Ox 94 L 10/07/17 00:15 Intake & Output 10/06/17 10/07/17 10/07/17 18:59 06:59 18:59 Intake Total 80 750 Balance 80 750 Intake: IV 80 160 0.9 80 160 Oral 590 Other: Voiding Method Diaper Diaper Incontinent Incontinent # Voids 1 1 - Exam The patient does not appear in acute distress. Alert and orientated x1. Incision appears fine with no erythema or drainage. Calf is soft and nontender. Good foot and ankle motion without difficulty. There is a dressing to the left heel. Sensation and circulatory status is intact. - Labs CBC & Chem 7: 10/06/17 08:41 10/07/17 06:37 Labs: Abnormal Lab Results - Last 24 Hours (Table) 10/06/17 10/06/17 10/06/17 Range/Units 11:08 16:57 19:53 POC Glucose (mg/dL) 148 H 133 H 132 H (75-99) mg/dL 10/07/17 Range/Units 07:21 POC Glucose (mg/dL) 101 H (75-99) mg/dL Microbiology - Last 24 Hours (Table) 10/04/17 17:15 Gram Stain - Preliminary Foot - Left Wound Culture - Preliminary Gram Neg Bacilli Group D Enterococcus Presumptive MRSA Assessment and Plan (1) Left hip pain Current Visit: Yes Status: Acute Code(s): M25.552 - PAIN IN LEFT HIP SNOMED Code(s): 02835519 (2) Status post hip hemiarthroplasty Current Visit: No Status: Acute Code(s): Z96.649 - PRESENCE OF UNSPECIFIED ARTIFICIAL HIP JOINT SNOMED Code(s): 442802555 Plan: The clinical findings were discussed with nursing staff. We recommend weightbearing as tolerated with a walker and physical therapy. However this may be difficult due to the left heel wound and infection. Continue with heel debridement today. No further surgical intervention is planned from orthopedic standpoint. The patient will follow-up with us on an outpatient basis after discharge.
--- NOTE | 2017-10-07 10:21 | P.WCPCN ---
Wound Center Open Debridement Diagnoses is gangrene left foot heel A measurement is 3 x 4 cm Debridement of the wound down to subcu tissue and removal of tissue Left foot and he was prepped and draped applied used on manner 1% lidocaine for infected using sharp knife we did the debridement all the necrotic tissue was removed some bleeding was noted which was controlled wound was irrigated with saline we applied the central cream and dressing applied patient tolerated the procedure well plan is we'll change her dressing every day on use Santyl cream
--- NOTE | 2017-10-07 11:01 | EEG ---
ELECTROENCEPHALOGRAM REPORT DATE OF EE10/06/2017 ELECTROENCEPHALOGRAPHIC EXAMINATION REPORT: INDICATION FOR EXAMINATION: This patient is a 77-year-old female being evaluated for episode of unresponsiveness and seizure-like activity. The patient has history of Alzheimer's dementia. AGE: [age]. EEG FINDINGS: A routine 21-channel awake digital EEG recording was accomplished utilizing the 10-20 international system with bipolar and referential montages. The background activity in the most alert resting state consists of a low to medium amplitude, poorly developed and poorly sustained 5-6 Hz activity over the posterior head regions. This posterior rhythm attenuates to eye opening. There is a moderate amount of low amplitude 18-20 Hz beta activity seen maximally over the anterior head regions. Muscle and movement artifact was observed on several occasions throughout the tracing. Hyperventilation was not performed. Photic stimulation at flash frequencies of 2-30 Hz produced a minimal occipital driving response. No epileptiform discharges were seen. IMPRESSION: This EEG is moderately abnormal in a diffuse fashion due to slowing of the EEG background. The EEG failed to reveal any focal, lateralized, or epileptiform abnormalities. Clinical correlation is recommended. MMODL / IJN: [id number] /
[2017-10-07 11:55] LABS: Glucose,Whole Blood 164 mg/dL (75-99)
[2017-10-07] MEDS: traMADol 50 MG TAB PO PRN ×2 (12:28→20:22)
[2017-10-07] MEDS: cefTRIAXone IN SWFI 2,000 MG/20 ML SYRINGE IVP SCH (13:30)
--- NOTE | 2017-10-07 13:48 | P.PN ---
Subjective Progress Note Date: 10/07/17 This patient is a 77-year-old right-handed white female who is status post recent left hip hemiarthroplasty on 07/10/2017. She was admitted to hospital for evaluation of syncope and inability to ambulate. 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 The patient did not qualify for any stroke intervention. She was sent for routine EEG which was reviewed and failed to reveal any epileptiform discharges. Her mental status has improved to some degree today. She does have history of underlying dementia as well. Neurologically she remains intact. She denies any headache or focal weakness. We will continue close neurological follow-up for the patient. She is being treated for wound healing involving her left heel. She has undergone some debridement. She has a bandage in place but states her left foot does pain her. We will continue close neurological follow-up the patient during this admission. Objective - Vital Signs Vital signs: Vital Signs Temp 97.5 F L 10/07/17 06:36 Pulse 77 10/07/17 06:36 Resp 20 10/07/17 06:36 BP 100/67 10/07/17 06:36 Pulse Ox 94 L 10/07/17 00:15 Intake & Output 10/06/17 10/07/17 10/07/17 18:59 06:59 18:59 Intake Total 80 750 Balance 80 750 Intake: IV 80 160 0.9 80 160 Oral 590 Other: Voiding Method Diaper Diaper Incontinent Incontinent # Voids 1 1 - Exam Physical Examination: PHYSICAL EXAMINATION: Patient is resting comfortably in bed. VITAL SIGNS: Blood pressure is [100/67]. Heart rate is [77]. Respiration is [20] . Temperature is [97.5]. HEENT: Head is atraumatic, neck is supple, there were no carotid bruits. CHEST: Lungs are clear to auscultation and percussion. CARDIAC: S1, S2 normal rate and rhythm. There is no murmur. ABDOMEN: Soft and nontender. Bowel sounds are present. EXTREMITIES: There is no pedal edema. Peripheral pulses are present. Neurological examination: Patient neurological exam is unchanged from yesterday. - Labs CBC & Chem 7: 10/06/17 08:41 10/07/17 06:37 Labs: Abnormal Lab Results - Last 24 Hours (Table) 10/06/17 10/06/17 10/06/17 Range/Units 08:41 08:41 11:08 Hgb 11.3 L (11.4-16.0) gm/dL Glucose 110 H (74-99) mg/dL POC Glucose (mg/dL) 148 H (75-99) mg/dL Alkaline Phosphatase 138 H (38-126) U/L Total Protein 6.1 L (6.3-8.2) g/dL Albumin 3.2 L (3.5-5.0) g/dL 10/06/17 10/06/17 10/07/17 Range/Units 16:57 19:53 07:21 Hgb (11.4-16.0) gm/dL Glucose (74-99) mg/dL POC Glucose (mg/dL) 133 H 132 H 101 H (75-99) mg/dL Alkaline Phosphatase (38-126) U/L Total Protein (6.3-8.2) g/dL Albumin (3.5-5.0) g/dL Microbiology - Last 24 Hours (Table) 10/04/17 17:15 Gram Stain - Preliminary Foot - Left Wound Culture - Preliminary Gram Neg Bacilli Group D Enterococcus Presumptive MRSA Assessment and Plan (1) Syncope and collapse Current Visit: Yes Status: Acute Code(s): R55 - SYNCOPE AND COLLAPSE SNOMED Code(s): 217832984 (2) Dementia Current Visit: Yes Status: Acute Code(s): F03.90 - UNSPECIFIED DEMENTIA WITHOUT BEHAVIORAL DISTURBANCE SNOMED Code(s): 35276718 (3) Left hip pain Current Visit: Yes Status: Acute Code(s): M25.552 - PAIN IN LEFT HIP SNOMED Code(s): 05269434 (4) Status post hip hemiarthroplasty Current Visit: No Status: Acute Code(s): Z96.649 - PRESENCE OF UNSPECIFIED ARTIFICIAL HIP JOINT SNOMED Code(s): 752535368 Plan: This patient is a 77-year-old female who recently underwent left hip hemiarthroplasty on 07/10/2017. She is residing in a [facility] and has been having increasing difficulty to ambulate as well as possible syncopal episode. She had a event yesterday morning suggesting possibility of seizure and a code stroke was initiated. She did not have any evidence for acute stroke and did not require any further intervention. Today she seems to be back to baseline level of function terms of her mental status. She underwent routine EEG yesterday which failed to reveal any epileptiform discharges. She is undergoing debridement of her left heel. Her mental status has shown improvement today. She does have history of underlying dementia which remained stable. Her overall prognosis at this time remains very guarded.
[2017-10-07] MEDS ORDERED: VANCOMYCIN TROUGH DUE 1 EACH MISC MISCELLANE ONE (17:00)
[2017-10-07 17:42] LABS: Glucose,Whole Blood 128 mg/dL (75-99)
[2017-10-07 20:16] LABS: Glucose,Whole Blood 115 mg/dL (75-99)
[2017-10-07] MEDS: MELATONIN 3 MG TABLET PO SCH (20:22)
[2017-10-07] MEDS: DONEPEZIL 10 MG TAB PO SCH (20:22)
--- NOTE | 2017-10-07 22:40 | PN ---
PROGRESS NOTE SUBJECTIVE: This is a 77-year-old white female with inability to ambulate. She is status post debridement of a heel pulse ulcer/wound infection down to the bone, status post debridement today. Mental status appears to be still confused at times, but much more alert than she was yesterday. VITAL SIGNS: Stable, afebrile. ASSESSMENT: 1. Diabetic wound infection. 2. Insulin-dependent diabetes mellitus. 3. Recent fracture of the left hip and left wrist. Continue diabetic control, IV antibiotics, await wound cultures and recommendations from Infectious Disease prior to discharge. MMODL / IJN: [id number] /
[2017-10-08 07:13] LABS: Glucose,Whole Blood 109 mg/dL (75-99)
[2017-10-08] MEDS: INSULIN ASPART 100 UNIT/ML 1 ML 10 ML VIAL SQ SCH ×4 (07:14→21:30)
[2017-10-08] MEDS: SPIRONOLACTONE 25 MG TAB PO SCH (07:34)
[2017-10-08] MEDS: MEMANTINE 10 MG TAB PO SCH ×2 (07:34→21:29)
[2017-10-08] MEDS: metFORMIN 500 MG TAB PO SCH ×2 (07:34→17:24)
[2017-10-08] MEDS: MULTIVITAMINS, THERA 1 EACH TAB PO SCH (07:34)
[2017-10-08] MEDS: amLODIPine 5 MG TAB PO SCH (07:35)
[2017-10-08] MEDS: GABAPENTIN 100 MG CAP PO SCH ×3 (07:35→21:29)
[2017-10-08] MEDS: METOPROLOL SUCCINATE (ER) 25 MG TAB.ER.24H PO SCH (07:35)
[2017-10-08] MEDS: ESCITALOPRAM 5 MG TAB PO SCH (07:35)
[2017-10-08] MEDS: APIXABAN 5 MG TAB PO SCH ×2 (07:35→21:29)
[2017-10-08] MEDS: PANTOPRAZOLE 40 MG TABLET PO SCH (07:35)
[2017-10-08] MEDS: ATORVASTATIN 20 MG TAB PO SCH (07:35)
[2017-10-08] MEDS: COLLAGENASE 250 UNIT/GM OINTMENT 30 GM TUBE TOPICAL SCH (07:36)
--- NOTE | 2017-10-08 11:47 | P.PN ---
Subjective Progress Note Date: 10/08/17 This patient is a 77-year-old right-handed white female who is status post recent left hip hemiarthroplasty on 07/10/2017. She was admitted to hospital for evaluation of syncope and inability to ambulate. 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 The patient did not qualify for any stroke intervention. She was sent for routine EEG which was reviewed and failed to reveal any epileptiform discharges. Her mental status has improved to some degree today. She does have history of underlying dementia as well. Neurologically she remains intact. She denies any headache or focal weakness. We will continue close neurological follow-up for the patient. She is being treated for wound healing involving her left heel. She has history of underlying insulin-dependent diabetes mellitus. We recommend tight control of her blood sugars. She has undergone some debridement. She has a bandage in place but states her left foot does pain her. Patient is being followed by orthopedic surgery for recent history of left hip hemiarthroplasty that was done back on 07/10/2017. Orthopedic surgery is recommending weightbearing as tolerated with a walker and physical therapy. Patient has had no further episodes of seizure-like activity. As noted her EEG failed to reveal any epileptiform discharges. We will continue close neurological follow-up the patient during this admission. Objective - Vital Signs Vital signs: Vital Signs Temp 97.4 F L 10/08/17 05:28 Pulse 73 10/08/17 05:28 Resp 20 10/08/17 05:28 BP 142/67 10/08/17 05:28 Pulse Ox 92 L 10/07/17 15:43 Intake & Output 10/07/17 10/08/17 10/08/17 18:59 06:59 18:59 Intake Total 500 500 Balance 500 500 Intake: Intake, IV Titration 500 500 Amount Vancomycin 1,750 mg In 500 500 Sodium Chloride 0.9% 500 ml @ 167 mls/hr IVPB Q12H [facility] Rx#:[id number] Other: Voiding Method Diaper Diaper Incontinent Incontinent # Voids 3 3 - Exam Physical Examination: PHYSICAL EXAMINATION: Patient is resting comfortably in bed. VITAL SIGNS: Blood pressure is [142/67]. Heart rate is [73]. Respiration is [20] . Temperature is [97.4]. HEENT: Head is atraumatic, neck is supple, there were no carotid bruits. CHEST: Lungs are clear to auscultation and percussion. CARDIAC: S1, S2 normal rate and rhythm. There is no murmur. ABDOMEN: Soft and nontender. Bowel sounds are present. EXTREMITIES: There is no pedal edema. Peripheral pulses are present. Neurological examination: Patient neurological exam is unchanged from yesterday. - Labs CBC & Chem 7: 10/06/17 08:41 10/07/17 06:37 Labs: Abnormal Lab Results - Last 24 Hours (Table) 10/07/17 10/07/17 10/07/17 Range/Units 11:53 17:40 20:15 POC Glucose (mg/dL) 164 H 128 H 115 H (75-99) mg/dL 10/08/17 Range/Units 07:11 POC Glucose (mg/dL) 109 H (75-99) mg/dL Microbiology - Last 24 Hours (Table) 10/04/17 17:15 Anaerobic Culture - Preliminary Heel - Left 10/04/17 17:15 Gram Stain - Final Foot - Left Wound Culture - Final Proteus vulgaris Enterococcus faecalis Methicillin resist S. aureus Assessment and Plan (1) Syncope and collapse Current Visit: Yes Status: Acute Code(s): R55 - SYNCOPE AND COLLAPSE SNOMED Code(s): 213547685 (2) Dementia Current Visit: Yes Status: Acute Code(s): F03.90 - UNSPECIFIED DEMENTIA WITHOUT BEHAVIORAL DISTURBANCE SNOMED Code(s): 31654185 (3) Left hip pain Current Visit: Yes Status: Acute Code(s): M25.552 - PAIN IN LEFT HIP SNOMED Code(s): 09867257 (4) Status post hip hemiarthroplasty Current Visit: No Status: Acute Code(s): Z96.649 - PRESENCE OF UNSPECIFIED ARTIFICIAL HIP JOINT SNOMED Code(s): 624182419 Plan: This patient is a 77-year-old female who recently underwent left hip hemiarthroplasty on 07/10/2017. She is residing in a alf and has been having increasing difficulty to ambulate as well as possible syncopal episode. She had a event yesterday morning suggesting possibility of seizure and a code stroke was initiated. She did not have any evidence for acute stroke and did not require any further intervention. Today she seems to be back to baseline level of function terms of her mental status. She underwent routine EEG yesterday which failed to reveal any epileptiform discharges. She is undergoing debridement of her left heel. Her mental status has shown improvement today. Patient continues to do well this morning. She has had no further episodes of seizure-like activity since yesterday. As noted her EEG failed to reveal any epileptiform abnormalities. Patient is awaiting return to her alf possibly early next week. We will continue close neurological follow-up for the patient during this admission. She does have history of underlying dementia which remained stable. Her overall prognosis at this time remains very guarded.
[2017-10-08 12:02] LABS: Glucose,Whole Blood 144 mg/dL (75-99)
[2017-10-08] MEDS: cefTRIAXone IN SWFI 2,000 MG/20 ML SYRINGE IVP SCH (14:42)
[2017-10-08] MEDS: VANCOMYCIN 1,500 MG in SODIUM CHLORIDE 0.9% 250 ML IVPB SCH (15:51)
[2017-10-08 17:17] LABS: Glucose,Whole Blood 139 mg/dL (75-99)
--- NOTE | 2017-10-08 18:26 | PN ---
PROGRESS NOTE SUBJECTIVE: A 77-year-old white male who had debridement of her heel for an ulcer. Awaiting IV antibiotic recommendations and weightbearing limitations prior to going home. Remains on IV vancomycin. Sugars in the mid 100s. CARDIOVASCULAR: S1, S2. LUNGS: Clear. GI: Soft. The EEG did not show any further seizures. Dementia stable. Cultures are pending. ASSESSMENT: 1. Syncope and collapse. 2. Dementia. 3. Left hip pain. 4. Diabetic ulcer of the left heel. 5. Status post hip hemiarthroscopy. Will have to figure out antibiotics and wound care for her and weightbearing and whether she can do it at home or if she wants to do it at snf. This will happen tomorrow. MMODL / IJN: [id number] /
[2017-10-08 20:40] LABS: Glucose,Whole Blood 122 mg/dL (75-99)
[2017-10-08] MEDS: MELATONIN 3 MG TABLET PO SCH (21:29)
[2017-10-08] MEDS: DONEPEZIL 10 MG TAB PO SCH (21:29)
[2017-10-08] MEDS: traMADol 50 MG TAB PO PRN (21:32)
--- NOTE | 2017-10-09 02:53 | PN ---
PROGRESS NOTE DATE OF SERVICE: 10/08/2017 REASON FOR FOLLOWUP: Left heel wound pressure ulcer, infected. INTERVAL HISTORY: The patient is currently afebrile. She is more awake and alert. She is breathing comfortably. Denies any chest pain, cough. No abdominal pain. left heel area. EXAMINATION: Blood pressure 142/75 with a pulse of 79, temperature 98.6. She is 96% on 2 L nasal cannula. General description is an elderly female lying in bed in no distress. Respiratory system: Unlabored breathing. Clear to auscultation anteriorly. Heart S1, S2. Regular rate and rhythm. Abdomen soft. No tenderness. Left heel with wound is currently dressed up. No obvious drainage on the dressing. LABS: Wound culture with Proteus, Enterococcus faecalis and MRSA. DIAGNOSTIC IMPRESSION AND PLAN: Patient with infected left heel pressure ulcer. Local wound care to continue with Santyl. Antibiotic in the form of Rocephin and vancomycin to continue. We will reevaluate the wound tomorrow to determine discharge antibiotics. Continue supportive care. MMODL / IJN: [id number] /
[2017-10-09 06:58] LABS: Glucose,Whole Blood 111 mg/dL (75-99)
[2017-10-09] MEDS: INSULIN ASPART 100 UNIT/ML 1 ML 10 ML VIAL SQ SCH ×4 (08:19→22:16)
[2017-10-09 08:26] LABS: Anion Gap 4 mmol/L; Blood Urea Nitrogen 15 mg/dL (7-17); Carbon Dioxide 29 mmol/L (22-30); Chloride 105 mmol/L (98-107); Glucose 103 mg/dL (74-99); Potassium 4.5 mmol/L (3.5-5.1); Sodium 138 mmol/L (137-145)
[2017-10-09 08:27] LABS: Calcium 8.7 mg/dL (8.4-10.2)
[2017-10-09] MEDS: PANTOPRAZOLE 40 MG TABLET PO SCH (09:21)
[2017-10-09] MEDS: metFORMIN 500 MG TAB PO SCH ×2 (09:21→17:49)
[2017-10-09] MEDS: APIXABAN 5 MG TAB PO SCH ×2 (09:22→22:16)
[2017-10-09] MEDS: amLODIPine 5 MG TAB PO SCH (09:22)
[2017-10-09] MEDS: ATORVASTATIN 20 MG TAB PO SCH (09:22)
[2017-10-09] MEDS: ESCITALOPRAM 5 MG TAB PO SCH (09:22)
[2017-10-09] MEDS: SPIRONOLACTONE 25 MG TAB PO SCH (09:23)
[2017-10-09] MEDS: GABAPENTIN 100 MG CAP PO SCH ×3 (09:23→22:17)
[2017-10-09] MEDS: MEMANTINE 10 MG TAB PO SCH ×2 (09:23→22:37)
[2017-10-09] MEDS: METOPROLOL SUCCINATE (ER) 25 MG TAB.ER.24H PO SCH (09:23)
[2017-10-09] MEDS: VANCOMYCIN 1,500 MG in SODIUM CHLORIDE 0.9% 250 ML IVPB SCH ×2 (10:07→23:28)
[2017-10-09] MEDS: COLLAGENASE 250 UNIT/GM OINTMENT 30 GM TUBE TOPICAL SCH (11:54)
--- NOTE | 2017-10-09 13:01 | P.PN ---
Subjective Progress Note Date: 10/09/17 This is a 77-year-old female who is admitted after a syncopal episode. Orthopedics is following the patient for left hip pain. Patient has a history of left hip hemiarthroplasty on 07/10/2017. Patient's past medical history is significant for Alzheimer's. Patient is a poor historian. Patient is status post debridement of the left heel. Patient denies any new symptoms or complaints today. Patient denies any fever/chills, numbness, weakness, tingling , abdominal pain, shortness of breath or chest pain. Objective - Vital Signs Vital signs: Vital Signs Temp 98.2 F 10/09/17 05:05 Pulse 75 10/09/17 09:23 Resp 16 10/09/17 05:05 BP 84/46 10/09/17 09:23 Pulse Ox 97 10/09/17 05:05 Intake & Output 10/08/17 10/09/17 10/09/17 18:59 06:59 18:59 Intake Total 980 720 Balance 980 720 Weight 117.934 kg 117.934 kg Intake: Oral 980 720 Other: Voiding Method Diaper Diaper Diaper Incontinent Incontinent Incontinent # Voids 3 3 1 - Exam On exam the patient is resting comfortably in bed in no acute distress. There is no tenderness to palpation over the left hip. Patient has good range of motion of the left hip. Calf is soft and nontender to palpation. Left lower extremity is warm and well perfused. Neurovascular status and circulatory status are intact. - Labs CBC & Chem 7: 10/06/17 08:41 10/09/17 07:31 Labs: Abnormal Lab Results - Last 24 Hours (Table) 10/08/17 10/08/17 10/09/17 Range/Units 17:16 20:35 06:56 Glucose (74-99) mg/dL POC Glucose (mg/dL) 139 H 122 H 111 H (75-99) mg/dL 10/09/17 Range/Units 07:31 Glucose 103 H (74-99) mg/dL POC Glucose (mg/dL) (75-99) mg/dL Microbiology - Last 24 Hours (Table) 10/04/17 17:15 Gram Stain - Final Foot - Left Wound Culture - Final Proteus vulgaris Enterococcus faecalis Methicillin resist S. aureus 08/08/18 17:15 Anaerobic Culture - Final Heel - Left Assessment and Plan (1) Left hip pain Current Visit: Yes Status: Acute Code(s): M25.552 - PAIN IN LEFT HIP SNOMED Code(s): 15682803 (2) Fall Current Visit: No Status: Acute Code(s): W19.XXXA - UNSPECIFIED FALL, INITIAL ENCOUNTER SNOMED Code(s): 8554517 Plan: 1. X-rays of the left hip show left hip hemiarthroplasty in good position and alignment. CT and x-rays are negative for any acute fracture or dislocation. 2. Recommend weightbearing as tolerated with a walker and physical therapy. However, patient may be unable to do this due debridement of the left heel. 3. No surgical intervention planned. We will continue to follow the patient closely.
[2017-10-09] MEDS: SODIUM CHLORIDE 0.9% 1,000 ML IV SCH (13:05)
[2017-10-09] MEDS: MULTIVITAMINS, THERA 1 EACH TAB PO SCH (13:07)
[2017-10-09] MEDS: cefTRIAXone IN SWFI 2,000 MG/20 ML SYRINGE IVP SCH (13:10)
[2017-10-09 13:14] LABS: Glucose,Whole Blood 96 mg/dL (75-99)
[2017-10-09 17:17] LABS: Glucose,Whole Blood 152 mg/dL (75-99)
[2017-10-09 20:03] LABS: Glucose,Whole Blood 146 mg/dL (75-99)
--- NOTE | 2017-10-09 20:25 | P.PN ---
Subjective Progress Note Date: 10/09/17 This patient is a 77-year-old right-handed white female who is status post recent left hip hemiarthroplasty on 07/10/2017. She was admitted to hospital for evaluation of syncope and inability to ambulate. Yesterday she developed heel sander rubber a possible seizure like activity and a code stroke was called. The patient did not qualify for any stroke intervention. She was sent for routine EEG which was reviewed and failed to reveal any epileptiform discharges. Her mental status has improved to some degree today. She does have history of underlying dementia as well. Neurologically she remains intact. She denies any headache or focal weakness. We will continue close neurological follow-up for the patient. She is being treated for wound healing involving her left heel. She has history of underlying insulin-dependent diabetes mellitus. We recommend tight control of her blood sugars. She has undergone some debridement. She has a bandage in place but states her left foot does pain her. Patient is being followed by orthopedic surgery for recent history of left hip hemiarthroplasty that was done back on 07/10/2017. Orthopedic surgery is recommending weightbearing as tolerated with a walker and physical therapy. Patient has had no further episodes of seizure-like activity. As noted her EEG failed to reveal any epileptiform discharges. Orthopedics is following the patient for her left hip pain. She continues to show evidence of underlying dementia and is a very poor historian. Her left heel ulcer is slowly being treated and show some signs of improvement. We'll await further recommendations from infectious disease. Plans are for consideration for returning the patient to assisted at time of discharge. We will continue close neurological follow-up the patient during this admission. Objective - Vital Signs Vital signs: Vital Signs Temp 98.3 F 10/09/17 14:40 Pulse 85 10/09/17 14:40 Resp 18 10/09/17 14:40 BP 90/69 10/09/17 14:40 Pulse Ox 91 L 10/09/17 14:40 Intake & Output 10/08/17 10/09/17 10/09/17 18:59 06:59 18:59 Intake Total 980 720 100 Balance 980 720 100 Weight 117.934 kg 117.934 kg 117.934 kg Intake: IV 100 0.9 100 Oral 980 720 Other: Voiding Method Diaper Diaper Diaper Incontinent Incontinent Incontinent # Voids 3 3 1 - Exam Physical Examination: PHYSICAL EXAMINATION: Patient is resting comfortably in bed. VITAL SIGNS: Blood pressure is [90/69]. Heart rate is [85]. Respiration is [18] . Temperature is [98.3]. HEENT: Head is atraumatic, neck is supple, there were no carotid bruits. CHEST: Lungs are clear to auscultation and percussion. CARDIAC: S1, S2 normal rate and rhythm. There is no murmur. ABDOMEN: Soft and nontender. Bowel sounds are present. EXTREMITIES: There is no pedal edema. Peripheral pulses are present. Neurological examination: Patient neurological exam is unchanged from yesterday. - Labs CBC & Chem 7: 10/06/17 08:41 10/09/17 07:31 Labs: Abnormal Lab Results - Last 24 Hours (Table) 10/08/17 10/09/17 10/09/17 Range/Units 20:35 06:56 07:31 Glucose 103 H (74-99) mg/dL POC Glucose (mg/dL) 122 H 111 H (75-99) mg/dL 10/09/17 Range/Units 17:13 Glucose (74-99) mg/dL POC Glucose (mg/dL) 152 H (75-99) mg/dL Microbiology - Last 24 Hours (Table) 10/04/17 17:15 Gram Stain - Final Foot - Left Wound Culture - Final Proteus vulgaris Enterococcus faecalis Methicillin resist S. aureus 10/04/17 17:15 Anaerobic Culture - Final Heel - Left Assessment and Plan (1) Syncope and collapse Current Visit: Yes Status: Acute Code(s): R55 - SYNCOPE AND COLLAPSE SNOMED Code(s): 825955450 (2) Dementia Current Visit: Yes Status: Acute Code(s): F03.90 - UNSPECIFIED DEMENTIA WITHOUT BEHAVIORAL DISTURBANCE SNOMED Code(s): 96300467 (3) Left hip pain Current Visit: Yes Status: Acute Code(s): M25.552 - PAIN IN LEFT HIP SNOMED Code(s): 85558443 (4) Status post hip hemiarthroplasty Current Visit: No Status: Acute Code(s): Z96.649 - PRESENCE OF UNSPECIFIED ARTIFICIAL HIP JOINT SNOMED Code(s): 208199626 Plan: This patient is a 77-year-old female who recently underwent left hip hemiarthroplasty on 07/10/2017. She is residing in a assisted and has been having increasing difficulty to ambulate as well as possible syncopal episode. She had a event yesterday morning suggesting possibility of seizure and a code stroke was initiated. She did not have any evidence for acute stroke and did not require any further intervention. Today she seems to be back to baseline level of function terms of her mental status. She underwent routine EEG yesterday which failed to reveal any epileptiform discharges. She is undergoing debridement of her left heel. Her mental status has shown improvement today. Patient continues to do well this morning. She has had no further episodes of seizure-like activity since yesterday. As noted her EEG failed to reveal any epileptiform abnormalities. Patient is awaiting return to her assisted possibly early this week. There is been no significant improvement in her overall neurological status. She does have history of underlying dementia. She is awaiting discharge back to the assisted. We will continue close neurological follow-up for the patient during this admission. She does have history of underlying dementia which remained stable. Her overall prognosis at this time remains very guarded.
[2017-10-09] MEDS: DONEPEZIL 10 MG TAB PO SCH (22:15)
[2017-10-09] MEDS: MELATONIN 3 MG TABLET PO SCH (22:16)
[2017-10-09] MEDS ORDERED: FUROSEMIDE 10 MG/ML 4 ML VIAL IV STA (22:47)
[2017-10-09] MEDS: ACETAMINOPHEN TAB 325 MG TAB PO PRN (23:28)
--- NOTE | 2017-10-09 23:29 | PN ---
PROGRESS NOTE DATE OF SERVICE: 10/09/2017 REASON FOR FOLLOWUP: Left heel infected pressure ulcer. INTERVAL HISTORY: The patient is currently afebrile. She is breathing comfortably. No chest pain or cough. No nausea, vomiting or any abdominal pain. No worsening pain to the left heel area. PHYSICAL EXAMINATION: Blood pressure 94/62 with a pulse of 96, temperature 98.1. She is 93% on 2 L nasal cannula. General description is an elderly female lying in bed in no distress. RESPIRATORY SYSTEM: Unlabored breathing. Clear to auscultation anteriorly. HEART: S1, S2. Regular rate and rhythm. ABDOMEN: Soft. No tenderness. Left heel wound with some slough tissue, surrounding swelling, redness but no drainage. LABS: BUN of 15, creatinine 0.73. DIAGNOSTIC IMPRESSION AND PLAN: Patient with left heel infected pressure ulcer. Culture did show multiple pathogens, including proteus, Enterococcus faecalis and MRSA, for which the patient is currently on Rocephin and vancomycin. That will be continued. Will obtain a bone scan to make sure there is no evidence of any osteomyelitis, and may need more aggressive IV antibiotic therapy. Local wound care to continue with Santyl. Continue with supportive care. MMODL / IJN: [id number] /
--- NOTE | 2017-10-09 23:38 | PN ---
PROGRESS NOTE SUBJECTIVE: White female with syncope, abscess left heel. She is having hypotension tonight. Blood pressure medicine has been held. Going to give her a fluid bolus, possibly send to ICU tonight. Dr. Salinas STAT consult. PSYCH: She is giving appropriate answers. Talkative. CARDIOVASCULAR: S1, S2. LUNGS: Clear. HEMATOLOGIC: Left heel debrided. ASSESSMENT: 1. Syncope. 2. Abscess, left heel. 3. Generalized weakness. 4. Dementia. Continue with IV vancomycin, wound care, fluid boluses. Possible dopamine in the ICU if hypotension continues. Dr. Salinas STAT consult. MMODL / IJN: [id number] /
[2017-10-10 01:24] LABS: Basophils % (A) 0 %; Eosinophils # (A) 0.3 k/uL (0-0.7); Eosinophils % (A) 3 %; HCT 35.5 % (34.0-46.0); Hypochromasia Slight; Lymphocytes # (A) 1.6 k/uL (1.0-4.8); Lymphocytes % (A) 18 %; MCH 28.7 pg (25.0-35.0); MCHC 31.1 g/dL (31.0-37.0); MCV 92.2 fL (80.0-100.0); Mean Platelet Volume 6.7; Monocytes # (A) 0.8 k/uL (0-1.0); Monocytes % (A) 9 %; Neutrophils # (A) 5.8 k/uL (1.3-7.7); Neutrophils % (A) 68 %; Platelet Count 213 k/uL (150-450); RBC 3.85 m/uL (3.80-5.40); RDW 14.8 % (11.5-15.5); WBC 8.5 k/uL (3.8-10.6)
[2017-10-10 01:34] LABS: Anion Gap 10 mmol/L; Blood Urea Nitrogen 15 mg/dL (7-17); Calcium 8.6 mg/dL (8.4-10.2); Carbon Dioxide 23 mmol/L (22-30); Chloride 104 mmol/L (98-107); Glucose 139 mg/dL (74-99); Potassium 4.3 mmol/L (3.5-5.1); Sodium 137 mmol/L (137-145)
[2017-10-10 01:41] LABS: Glucose,Whole Blood 132 mg/dL (75-99)
[2017-10-10] MEDS ORDERED: NOREPINEPHRIN 4 MG-0.9% NS PMX 4 MG/250 ML ML IV ONE ×2 (01:41→12:21)
[2017-10-10] MEDS ORDERED: NOREPINEPHRIN 4 MG-0.9% NS PMX 4 MG/250 ML ML IV SCH (01:45)
[2017-10-10] MEDS: NOREPINEPHRINE 4 MG in DEXTROSE 5% IN WATER 250 ML IV SCH ×6 (02:30→12:44)
[2017-10-10 05:08] LABS: Basophils % (A) 0 %; Eosinophils # (A) 0.4 k/uL (0-0.7); Eosinophils % (A) 3 %; HCT 37.5 % (34.0-46.0); HGB 11.9 gm/dL (11.4-16.0); Lymphocytes # (A) 2.4 k/uL (1.0-4.8); Lymphocytes % (A) 22 %; MCHC 31.8 g/dL (31.0-37.0); MCV 91.3 fL (80.0-100.0); Mean Platelet Volume 7.2; Monocytes # (A) 1.1 k/uL (0-1.0); Monocytes % (A) 10 %; Neutrophils # (A) 6.9 k/uL (1.3-7.7); Neutrophils % (A) 63 %; Platelet Count 251 k/uL (150-450); RBC 4.11 m/uL (3.80-5.40); RDW 14.8 % (11.5-15.5)
[2017-10-10 05:27] LABS: Calcium 9.1 mg/dL (8.4-10.2); Magnesium 1.4 mg/dL (1.6-2.3); Phosphorus 4.2 mg/dL (2.5-4.5); Potassium 4.1 mmol/L (3.5-5.1)
[2017-10-10] MEDS ORDERED: Magnesium Replacement Protocol 1 EACH MISC MISCELLANE PRN (05:43)
[2017-10-10] MEDS ORDERED: FUROSEMIDE 10 MG/ML 4 ML VIAL IV ONE (06:00)
[2017-10-10] MEDS: MAGNESIUM SULFATE-D5W PMX 1 GM in DEXTROSE/WATER 1 100ML.BAG IVPB SCH ×3 (06:38→12:40)
[2017-10-10 07:15] LABS: Glucose,Whole Blood 186 mg/dL (75-99)
[2017-10-10] MEDS: IPRATROPIUM-ALBUTEROL 3 ML NEB INHALATION SCH ×3 (07:52→19:50)
[2017-10-10] MEDS: SODIUM CHLORIDE 0.9% 1,000 ML IV SCH (08:00)
[2017-10-10 08:19] LABS: Glucose,Whole Blood 221 mg/dL (75-99)
--- NOTE | 2017-10-10 08:20 | P.PN ---
Subjective Progress Note Date: 10/10/17 This is a 77-year-old female who is admitted after a syncopal episode. Orthopedics is following the patient for left hip pain. Patient has a history of left hip hemiarthroplasty on 07/10/2017. Patient's past medical history is significant for Alzheimer's. Patient is status post debridement of the left heel. Patient denies any pain in the left hip today. Patient was transferred to the ICU for hypotension. Patient denies any fever/chills, numbness, weakness, tingling, abdominal pain, shortness of breath or chest pain. Objective - Vital Signs Vital signs: Vital Signs Temp 98.7 F 10/10/17 08:00 Pulse 74 10/10/17 08:07 Resp 23 10/10/17 08:00 BP 80/56 10/10/17 08:00 Pulse Ox 98 10/10/17 08:00 Intake & Output 10/09/17 10/10/17 10/10/17 18:59 06:59 18:59 Intake Total 100 976.25 108.5 Output Total 875 525 Balance 100 101.25 -416.5 Weight 117.934 kg Intake: IV 100 290 20 0.9 100 Sodium Chloride 0.9% 1, 40 20 000 ml @ 50 mls/hr IV . Q20H RACHELLE Rx#:[id number] Vancomycin 1,500 mg In 250 Sodium Chloride 0.9% 250 ml @ 125 mls/hr IVPB Q16H RACHELLE Rx#:[id number] Intake, IV Titration 96.25 88.5 Amount Norepinephrine 4 mg In 96.25 88.5 Dextrose 5% in Water 250 ml @ Titrate IV .Q0M RACHELLE Rx#:[id number] Oral 590 Output: Urine 875 525 Other: Voiding Method Diaper Indwelling Catheter Indwelling Catheter Incontinent # Voids 2 1 - Exam On exam the patient is resting comfortably in bed in no acute distress. There is no tenderness to palpation over the left hip. Patient has good range of motion of the left hip. Calf is soft and nontender to palpation. Left lower extremity is warm and well perfused. Neurovascular status and circulatory status are intact. - Labs CBC & Chem 7: 10/10/17 04:24 10/10/17 04:24 Labs: Abnormal Lab Results - Last 24 Hours (Table) 0810/09/17 10/09/17 Range/Units 07:31 17:13 20:01 WBC (3.8-10.6) k/uL Hgb (11.4-16.0) gm/dL Monocytes # (0-1.0) k/uL Glucose 103 H (74-99) mg/dL POC Glucose (mg/dL) 152 H 146 H (75-99) mg/dL Magnesium (1.6-2.3) mg/dL 10/10/17 10/10/17 10/10/17 Range/Units 01:16 01:16 01:38 WBC (3.8-10.6) k/uL Hgb 11.0 L (11.4-16.0) gm/dL Monocytes # (0-1.0) k/uL Glucose 139 H (74-99) mg/dL POC Glucose (mg/dL) 132 H (75-99) mg/dL Magnesium (1.6-2.3) mg/dL 10/10/17 10/10/17 10/10/17 Range/Units 04:24 04:24 07:14 WBC 11.0 H (3.8-10.6) k/uL Hgb (11.4-16.0) gm/dL Monocytes # 1.1 H (0-1.0) k/uL Glucose 197 H (74-99) mg/dL POC Glucose (mg/dL) 186 H (75-99) mg/dL Magnesium 1.4 L (1.6-2.3) mg/dL Microbiology - Last 24 Hours (Table) 10/04/17 17:15 Gram Stain - Final Foot - Left Wound Culture - Final Proteus vulgaris Enterococcus faecalis Methicillin resist S. aureus Assessment and Plan (1) Left hip pain Current Visit: Yes Status: Acute Code(s): M25.552 - PAIN IN LEFT HIP SNOMED Code(s): 36339239 (2) Fall Current Visit: No Status: Acute Code(s): W19.XXXA - UNSPECIFIED FALL, INITIAL ENCOUNTER SNOMED Code(s): 3170097 Plan: 1. X-rays of the left hip show left hip hemiarthroplasty in good position and alignment. CT and x-rays are negative for any acute fracture or dislocation. 2. Recommend weightbearing as tolerated with a walker and physical therapy when patient is medically able. 3. No surgical intervention planned. Patient may follow up as an outpatient.
[2017-10-10] MEDS: INSULIN ASPART 100 UNIT/ML 1 ML 10 ML VIAL SQ SCH ×4 (08:38→21:08)
[2017-10-10] MEDS: MEMANTINE 10 MG TAB PO SCH ×2 (08:38→21:05)
--- NOTE | 2017-10-10 08:55 | XR ---
EXAMINATION TYPE: XR chest 1V DATE OF EXAM: 10/10/2017 COMPARISON: 10/03/2017 HISTORY: Chest pain TECHNIQUE: Single frontal view of the chest is obtained. FINDINGS: Ectasia of the aorta. Heart is mildly prominent and there is subsegmental consolidation ri ght lung base. No overt failure or pneumothorax. Diffuse osteopenia noted and suggestion of previous trauma to the left humerus. Calcified lymph nodes in the mediastinum. IMPRESSION: 1. Right basilar atelectasis or early infiltrate 2. Stable mild cardiomegaly
[2017-10-10] MEDS: COLLAGENASE 250 UNIT/GM OINTMENT 30 GM TUBE TOPICAL SCH (09:50)
[2017-10-10] MEDS: MULTIVITAMINS, THERA 1 EACH TAB PO SCH (10:13)
[2017-10-10] MEDS: METOPROLOL SUCCINATE (ER) 25 MG TAB.ER.24H PO SCH (10:13)
[2017-10-10] MEDS: metFORMIN 500 MG TAB PO SCH ×2 (10:13→18:18)
[2017-10-10] MEDS: ESCITALOPRAM 5 MG TAB PO SCH (10:13)
[2017-10-10] MEDS: GABAPENTIN 100 MG CAP PO SCH ×3 (10:13→21:05)
[2017-10-10] MEDS: SPIRONOLACTONE 25 MG TAB PO SCH (10:13)
[2017-10-10] MEDS: APIXABAN 5 MG TAB PO SCH ×2 (10:14→21:06)
[2017-10-10] MEDS: amLODIPine 5 MG TAB PO SCH (10:14)
[2017-10-10] MEDS: ATORVASTATIN 20 MG TAB PO SCH (10:14)
[2017-10-10] MEDS: PANTOPRAZOLE 40 MG TABLET PO SCH (10:14)
--- NOTE | 2017-10-10 10:22 | PN ---
PROGRESS NOTE SUBJECTIVE: 77-year-old white female with a right basilar infiltrate. Continue with broad-spectrum antibiotics at this time. Had hypotension. Not responsive to fluids and she may be fluid overloaded at which time she had to go to the ICU to be placed on norepinephrine for hypotension. Cardiology and Pulmonary consulted. Chest x-ray shows possible infiltrate. Temp 98.7, pulse 60s to 80s, blood pressure 80/56. She is FULL CODE. She had 2 L oxygen. Sats 98 in 2 L. Psych: She has dementia. She gives appropriate answers. Cardiovascular S1, S2. Lungs show wheezes. Sugars are in the mid 100s. She is status post debridement of her left heel. ASSESSMENT: 1. Left heel debridement. 2. Diabetes mellitus. 3. Dementia. 4. Recent fractures. 5. Hypertension secondary to unclear etiology at this time. 6. Possible sepsis. Recent x-rays of the hip are normal. CT has no fractures. Weight bear as tolerated per Orthopedics once she improves from this hypertension she has right now. Medications reviewed. She is placed on norepinephrine and magnesium replacement for hypomagnesemia. Vancomycin continues. Infectious Disease and children's entertainer consult. Remains on Rocephin and vancomycin for antibiotics. ICU time 30 minutes. MMODL / IJN: [id number] /
--- NOTE | 2017-10-10 10:47 | P.CNPUL ---
<Cris Carver E - Last Filed: 10/10/17 11:12> History of Present Illness Consult date: 10/10/17 Requesting physician: Jase Villeda Reason for consult: other (ICU management) Chief complaint: hypotension History of present illness: This is a 77-year-old female patient being seen examined and evaluated today for consultation. This patient originally was admitted to the hospital for evaluation of possible syncope and inability to ambulate. The patient is also known to have a left heel infected pressure ulcer which was positive for MRSA and multiple other organisms. Infectious disease was put on consult for that and she has been on IV antibiotics. She also has orthopedics on consult as well and is undergoing a bone scan today to look for any osteomyelitis. She also developed somewhat of a seizure-like activity inpatient, neurology was put on consult and an EEG was performed and was negative for any acute seizures at that time. Apparently the patient had been hemodynamically stable, she had no WBC count and no fevers. Apparently overnight the patient did develop some hypotension. She did receive an IV fluid bolus at that time and she was transferred to the intensive care unit for further evaluation and monitoring. The patient was started on Levophed to maintain her blood pressures and she currently continues on 16 mics at this time. Upon examination she is resting up in bed on 2 L of supplemental oxygen. She appears tired however does answer questions appropriately and is easily arousable. She states she does occasionally have shortness of breath with exertion and activity. She denies any cough or congestion. She has had good urine output. She did receive a 1 time dose of Lasix yesterday. She does occasionally complain of some lower back flank area pain. She has had a decreased appetite. Review of Systems 14 point review of systems was completed and is negative unless noted above in the HPI Past Medical History Past Medical History: Atrial Fibrillation, Asthma, Diabetes Mellitus, GERD/ Reflux, Hyperlipidemia, Hypertension, Memory Impairment, Thyroid Disorder Additional Past Medical History / Comment(s): Currently being treated for wound L heel, alzheimers dementia, diet controlled diabetes, falls, falls with hip fractures/arm fracture, hypothyroid History of Any Multi-Drug Resistant Organisms: MRSA Date of last positivie culture/infection: 10/04/17 MDRO Source:: FOOT Past Surgical History: Appendectomy, Hysterectomy, Joint Replacement, Orthopedic Surgery Additional Past Surgical History / Comment(s): L hip hemiarthroplasty, R total hip done in [place]. Past Anesthesia/Blood Transfusion Reactions: No Reported Reaction Smoking Status: Former smoker - Past Family History Father Family Medical History: Hypertension Mother Family Medical History: Memory Impairment Additional Family Medical History / Comment(s): Mother had alzheimer's dementia Medications and Allergies Home Medications Medication Instructions Recorded Confirmed Type Apixaban [Eliquis] 5 mg PO BID 07/08/17 10/04/17 History Atorvastatin [Lipitor] 20 mg PO DAILY 07/08/17 10/04/17 History Escitalopram [Lexapro] 5 mg PO DAILY 07/08/17 10/04/17 History Metoprolol Succinate (ER) [Toprol 25 mg PO DAILY 07/08/17 10/04/17 History XL] Pantoprazole Sodium [Protonix] 40 mg PO DAILY 07/08/17 10/04/17 History metFORMIN HCL [Glucophage] 500 mg PO BID 07/08/17 10/04/17 History Acetaminophen Tab [Tylenol] 650 mg PO Q6HR PRN tab 07/12/17 10/04/17 Rx Melatonin 3 mg PO HS tablet 07/12/17 10/04/17 Rx amLODIPine [Norvasc] 5 mg PO DAILY tab 07/12/17 10/04/17 Rx Collagenase [Santyl] 1 applic TOPICAL DAILY 10/04/17 10/04/17 History Donepezil [Aricept] 10 mg PO HS 10/04/17 10/04/17 History Gabapentin [Neurontin] 100 mg PO TID 10/04/17 10/04/17 History HYDROcodone/APAP 5-325MG [Kirby 1 tab PO Q4H PRN 10/04/17 10/04/17 History 5-325] Insulin Aspart [NovoLOG See Protocol SQ ACHS 10/04/17 10/04/17 History (formulary)] Memantine [Namenda] 10 mg PO BID 10/04/17 10/04/17 History Multivitamins, Thera [Multivitamin 1 tab PO DAILY 10/04/17 10/04/17 History (formulary)] Spironolactone [Aldactone] 25 mg PO DAILY 10/04/17 10/04/17 History Triad Wound Paste 1 applic TOPICAL BID 10/04/17 10/04/17 History Allergies Allergy/AdvReac Type Severity Reaction Status Date / Time No Known Allergies Allergy Verified 10/04/17 11:34 Physical Exam Vitals: Vital Signs Temp Pulse Pulse Resp BP BP BP 10/10/17 08:07 74 10/10/17 08:00 98.7 F 65 23 80/56 10/10/17 07:53 80 10/10/17 07:45 74 19 86/66 10/10/17 07:30 94 21 98/74 10/10/17 07:15 68 24 77/55 10/10/17 07:00 92 27 H 103/67 10/10/17 06:45 84 20 103/67 10/10/17 06:30 67 98/54 10/10/17 06:15 77 105/58 10/10/17 06:00 83 20 99/55 10/10/17 05:45 71 23 101/58 10/10/17 05:30 71 24 100/57 10/10/17 05:15 59 L 19 79/53 10/10/17 05:00 74 26 H 86/58 10/10/17 04:45 72 22 95/67 10/10/17 04:30 80 23 91/71 10/10/17 04:15 79 34 H 83/55 10/10/17 04:00 98.1 F 82 27 H 76/54 10/10/17 03:45 77 22 90/61 10/10/17 03:30 77 20 83/53 10/10/17 03:20 76 23 91/63 10/10/17 03:00 82 23 95/65 10/10/17 02:50 80 26 H 102/73 10/10/17 02:30 80 21 74/57 10/10/17 02:20 82 33 H 75/52 10/10/17 02:00 82 37 H 75/57 10/10/17 01:40 98.7 F 84 26 H 68/55 10/10/17 01:39 83 24 10/10/17 01:12 70/58 10/10/17 00:14 98 96/54 10/09/17 22:30 98 83/58 10/09/17 22:00 98.1 F 96 16 94/62 10/09/17 14:40 98.3 F 85 18 90/69 Pulse Ox 10/10/17 08:07 10/10/17 08:00 98 10/10/17 07:53 10/10/17 07:45 94 L 10/10/17 07:30 94 L 10/10/17 07:15 95 10/10/17 07:00 95 10/10/17 06:45 93 L 10/10/17 06:30 95 10/10/17 06:15 96 10/10/17 06:00 96 10/10/17 05:45 96 10/10/17 05:30 95 10/10/17 05:15 97 10/10/17 05:00 97 10/10/17 04:45 96 10/10/17 04:30 94 L 10/10/17 04:15 95 10/10/17 04:00 95 10/10/17 03:45 95 10/10/17 03:30 95 10/10/17 03:20 95 10/10/17 03:00 95 10/10/17 02:50 95 10/10/17 02:30 96 10/10/17 02:20 96 10/10/17 02:00 95 10/10/17 01:40 94 L 10/10/17 01:39 94 L 10/10/17 01:12 10/10/17 00:14 10/09/17 22:30 10/09/17 22:00 93 L 10/09/17 14:40 91 L Intake and Output 10/09/17 10/10/17 10/10/17 22:59 06:59 14:59 Intake Total 590 386.25 108.5 Output Total 875 525 Balance 590 -488.75 -416.5 Intake: IV 290 20 Sodium Chloride 0.9% 1, 40 20 000 ml @ 50 mls/hr IV . Q20H [facility] Rx#:[id number] Vancomycin 1,500 mg In 250 Sodium Chloride 0.9% 250 ml @ 125 mls/hr IVPB Q16H [facility] Rx#:[id number] Intake, IV Titration 96.25 88.5 Amount Norepinephrine 4 mg In 96.25 88.5 Dextrose 5% in Water 250 ml @ Titrate IV .Q0M [facility] Rx#:[id number] Oral 590 Output: Urine 875 525 Other: Voiding Method Indwelling Catheter Indwelling Catheter # Voids 1 GENERAL EXAM: Alert, intermittent confusion with a baseline of dementia, tired, comfortable in no apparent distress. HEAD: Normocephalic. EYES: Normal reaction of pupils, equal size. NOSE: Clear with pink turbinates. THROAT: No erythema or exudates. NECK: No masses, no JVD. CHEST: No chest wall deformity. LUNGS: Lungs noted to be diminished throughout with some faint expiratory wheezing CVS: S1 and S2 normal with no audible mumurs, regular rhythm. ABDOMEN: No hepatosplenomegaly, normal bowel sounds, no guarding or rigidity. EXTREMITIES: No edema noted, pedal pulses palpable. CENTRAL NERVOUS SYSTEM: No focal deficits, tone is normal in all 4 extremities. Results - Laboratory Findings CBC and BMP: 10/10/17 04:24 10/10/17 04:24 PT/INR, D-dimer PT 11.0 sec (9.0-12.0) 10/03/17 17:10 INR 1.1 (<1.2) 10/03/17 17:10 Abnormal lab findings: Abnormal Labs 10/03/17 10/03/17 10/04/17 17:10 17:10 17:10 WBC Hgb Monocytes # Carbon Dioxide 21 L BUN 26 H Creatinine 1.30 H Glucose 176 H POC Glucose (mg/dL) Hemoglobin A1c 6.5 H Magnesium 1.5 L Alkaline Phosphatase 145 H Total Creatine Kinase <20 L Total Protein Albumin 10/04/17 10/05/17 10/05/17 20:23 06:56 11:40 WBC Hgb Monocytes # Carbon Dioxide BUN Creatinine Glucose POC Glucose (mg/dL) 121 H 126 H 101 H Hemoglobin A1c Magnesium Alkaline Phosphatase Total Creatine Kinase Total Protein Albumin 10/05/17 10/05/17 10/06/17 16:41 20:12 06:57 WBC Hgb Monocytes # Carbon Dioxide BUN Creatinine Glucose POC Glucose (mg/dL) 138 H 113 H 108 H Hemoglobin A1c Magnesium Alkaline Phosphatase Total Creatine Kinase Total Protein Albumin 10/06/17 10/06/17 10/06/17 08:00 08:41 08:41 WBC Hgb 11.3 L Monocytes # Carbon Dioxide BUN Creatinine Glucose 110 H POC Glucose (mg/dL) 104 H Hemoglobin A1c Magnesium Alkaline Phosphatase 138 H Total Creatine Kinase Total Protein 6.1 L Albumin 3.2 L 10/06/17 10/06/17 10/06/17 11:08 16:57 19:53 WBC Hgb Monocytes # Carbon Dioxide BUN Creatinine Glucose POC Glucose (mg/dL) 148 H 133 H 132 H Hemoglobin A1c Magnesium Alkaline Phosphatase Total Creatine Kinase Total Protein Albumin 10/07/17 10/07/17 10/07/17 07:21 11:53 17:40 WBC Hgb Monocytes # Carbon Dioxide BUN Creatinine Glucose POC Glucose (mg/dL) 101 H 164 H 128 H Hemoglobin A1c Magnesium Alkaline Phosphatase Total Creatine Kinase Total Protein Albumin 10/07/17 10/08/17 10/08/17 20:15 07:11 12:00 WBC Hgb Monocytes # Carbon Dioxide BUN Creatinine Glucose POC Glucose (mg/dL) 115 H 109 H 144 H Hemoglobin A1c Magnesium Alkaline Phosphatase Total Creatine Kinase Total Protein Albumin 10/08/17 10/08/17 10/09/17 17:16 20:35 06:56 WBC Hgb Monocytes # Carbon Dioxide BUN Creatinine Glucose POC Glucose (mg/dL) 139 H 122 H 111 H Hemoglobin A1c Magnesium Alkaline Phosphatase Total Creatine Kinase Total Protein Albumin 10/09/17 10/09/17 10/09/17 07:31 17:13 20:01 WBC Hgb Monocytes # Carbon Dioxide BUN Creatinine Glucose 103 H POC Glucose (mg/dL) 152 H 146 H Hemoglobin A1c Magnesium Alkaline Phosphatase Total Creatine Kinase Total Protein Albumin 10/10/17 10/10/17 10/10/17 01:16 01:16 01:38 WBC Hgb 11.0 L Monocytes # Carbon Dioxide BUN Creatinine Glucose 139 H POC Glucose (mg/dL) 132 H Hemoglobin A1c Magnesium Alkaline Phosphatase Total Creatine Kinase Total Protein Albumin 10/10/17 10/10/17 10/10/17 04:24 04:24 07:14 WBC 11.0 H Hgb Monocytes # 1.1 H Carbon Dioxide BUN Creatinine Glucose 197 H POC Glucose (mg/dL) 186 H Hemoglobin A1c Magnesium 1.4 L Alkaline Phosphatase Total Creatine Kinase Total Protein Albumin 10/10/17 08:17 WBC Hgb Monocytes # Carbon Dioxide BUN Creatinine Glucose POC Glucose (mg/dL) 221 H Hemoglobin A1c Magnesium Alkaline Phosphatase Total Creatine Kinase Total Protein Albumin - Diagnostic Findings Chest x-ray: report reviewed, image reviewed Assessment and Plan Assessment: Assessment Shock of unclear etiology sepsis versus other Right middle lobe infiltrate possible pneumonia Hypotension Acute hypoxic respiratory failure requiring supplemental oxygen Left heel wound Left hip pain, Generalized weakness and medical debility Hypomagnesemia Underlying dementia Plan Medications have been reviewed and will be continued as ordered. Continue with Levophed to maintain adequate blood pressures Start vasopressin try to wean down the Levophed as tolerated Patient will undergo a central line placement today Obtain blood cultures and urine cultures Obtain echocardiogram Infectious disease on consult and adjusting antibiotics Continue to monitor and replace electrolytes per protocol Patient will be going for a bone scan today Continue with pulmonary hygiene, coughing and deep breathing exercises, and supportive care. Supplemental oxygen to maintain oxygen saturations of 92% or better. Initiate and encourage incentive spirometer Wound care Continue nebulizer treatments. GI and DVT prophylaxis. Protonix and Eliquis Increase activity as tolerated and her orthosis recommendations, PT and OT also We will continue to monitor labs/results and adjust treatment as necessary. Further recommendations pending. I performed an examination of the patient and discussed their management with the nurse practitioner. I have reviewed the nurse practitioner's note and agree with the documented findings and plan of care. <Alanna Salinas A - Last Filed: 10/10/17 18:07> Physical Exam Osteopathic Statement: *. No significant issues noted on an osteopathic structural exam other than those noted in the History and Physical/Consult. Vitals: Vital Signs Temp Pulse Pulse Resp BP BP BP 10/10/17 17:30 78 20 10/10/17 17:15 79 21 10/10/17 17:00 73 30 H 10/10/17 16:45 71 20 10/10/17 16:30 73 20 10/10/17 16:19 97.4 F L 10/10/17 16:15 73 18 10/10/17 16:00 83 33 H 10/10/17 15:45 70 28 H 10/10/17 15:30 71 20 10/10/17 15:28 72 16 10/10/17 14:30 67 23 10/10/17 14:15 67 22 10/10/17 14:00 83 21 10/10/17 13:45 85 19 10/10/17 13:30 83 32 H 75/63 10/10/17 13:15 99.1 F 81 25 H 85/62 10/10/17 13:00 77 22 100/64 10/10/17 12:45 82 20 86/63 10/10/17 12:30 75 21 96/72 10/10/17 12:15 76 22 98/68 10/10/17 12:00 87 24 98/62 10/10/17 11:45 94 47 H 102/66 10/10/17 11:30 77 26 H 101/54 10/10/17 11:24 83 20 0818 10:45 97/69 10/10/17 10:30 82 20 97/69 10/10/17 10:15 85 21 90/61 10/10/17 10:00 85 22 91/69 10/10/17 09:45 88 26 H 89/65 10/10/17 09:30 91 25 H 98/65 10/10/17 09:15 78 16 97/65 10/10/17 09:00 93 25 H 107/63 10/10/17 08:45 79 25 H 112/63 10/10/17 08:30 90 25 H 104/80 10/10/17 08:15 78 23 96/65 10/10/17 08:07 74 10/10/17 08:00 98.7 F 65 23 80/56 10/10/17 07:53 80 10/10/17 07:45 74 19 86/66 10/10/17 07:30 94 21 98/74 10/10/17 07:15 68 24 77/55 10/10/17 07:00 92 27 H 103/67 10/10/17 06:45 84 20 103/67 10/10/17 06:30 67 98/54 10/10/17 06:15 77 105/58 10/10/17 06:00 83 20 99/55 10/10/17 05:45 71 23 101/58 10/10/17 05:30 71 24 100/57 10/10/17 05:15 59 L 19 79/53 10/10/17 05:00 74 26 H 86/58 18 04:45 72 22 95/67 18 04:30 80 23 91/71 10/10/17 04:15 79 34 H 83/55 10/10/17 04:00 98.1 F 82 27 H 76/54 1418 03:45 77 22 90/61 18 03:30 77 20 83/53 18 03:20 76 23 91/63 10/10/17 03:00 82 23 95/65 10/10/17 02:50 80 26 H 102/73 08/14/18 02:30 80 21 74/57 10/10/17 02:20 82 33 H 75/52 10/10/17 02:00 82 37 H 75/57 10/10/17 01:40 98.7 F 84 26 H 68/55 18 01:39 83 24 10/10/17 01:12 70/58 10/10/17 00:14 98 96/54 10/09/17 22:30 98 83/58 10/09/17 22:00 98.1 F 96 16 94/62 Pulse Ox 10/10/17 17:30 10/10/17 17:15 10/10/17 17:00 10/10/17 16:45 10/10/17 16:30 10/10/17 16:19 10/10/17 16:15 10/10/17 16:00 10/10/17 15:45 10/10/17 15:30 10/10/17 15:28 10/10/17 14:30 95 10/10/17 14:15 93 L 10/10/17 14:00 95 10/10/17 13:45 94 L 10/10/17 13:30 94 L 10/10/17 13:15 94 L 10/10/17 13:00 95 10/10/17 12:45 96 10/10/17 12:30 95 10/10/17 12:15 95 10/10/17 12:00 92 L 10/10/17 11:45 97 10/10/17 11:30 10/10/17 11:24 10/10/17 10:45 10/10/17 10:30 94 L 10/10/17 10:15 94 L 10/10/17 10:00 93 L 10/10/17 09:45 94 L 10/10/17 09:30 93 L 10/10/17 09:15 93 L 10/10/17 09:00 95 10/10/17 08:45 93 L 10/10/17 08:30 93 L 10/10/17 08:15 94 L 10/10/17 08:07 10/10/17 08:00 98 10/10/17 07:53 10/10/17 07:45 94 L 10/10/17 07:30 94 L 10/10/17 07:15 95 10/10/17 07:00 95 10/10/17 06:45 93 L 10/10/17 06:30 95 10/10/17 06:15 96 10/10/17 06:00 96 10/10/17 05:45 96 10/10/17 05:30 95 10/10/17 05:15 97 10/10/17 05:00 97 10/10/17 04:45 96 10/10/17 04:30 94 L 10/10/17 04:15 95 10/10/17 04:00 95 10/10/17 03:45 95 10/10/17 03:30 95 10/10/17 03:20 95 10/10/17 03:00 95 10/10/17 02:50 95 10/10/17 02:30 96 10/10/17 02:20 96 10/10/17 02:00 95 10/10/17 01:40 94 L 10/10/17 01:39 94 L 10/10/17 01:12 10/10/17 00:14 10/09/17 22:30 10/09/17 22:00 93 L Intake and Output 10/10/17 10/10/17 10/10/17 06:59 14:59 22:59 Intake Total 386.25 1116.5 547 Output Total 875 1400 290 Balance -488.75 -283.5 257 Intake: IV 290 778 547 0.9 540 520 Magnesium Sulfate-D5w Pmx 200 1 gm In Dextrose/Water 1 100ml.bag @ 100 mls/hr IVPB Q1H [facility] Rx#: [id number] Sodium Chloride 0.9% 1, 40 20 000 ml @ 50 mls/hr IV . Q20H [facility] Rx#:[id number] Sodium Chloride 0.9% 99 18 27 ml @ 0.03 UNITS/MIN 9 mls /hr IV .Q11H7M [facility] with Vasopressin 20 unit Rx#: [id number] Vancomycin 1,500 mg In 250 Sodium Chloride 0.9% 250 ml @ 125 mls/hr IVPB Q16H [facility] Rx#:[id number] Intake, IV Titration 96.25 338.5 Amount Norepinephrine 4 mg In 96.25 338.5 Dextrose 5% in Water 250 ml @ Titrate IV .Q0M [facility] Rx#:[id number] Output: Urine 875 1400 290 Other: Voiding Method Indwelling Catheter Indwelling Catheter Indwelling Catheter # Voids 1 1 # Bowel Movements 0 ABP, PAP, CO, CI - Last 8 Hours Arterial Blood Pressure 115/53 Arterial Blood Pressure 120/56 Arterial Blood Pressure 118/55 Arterial Blood Pressure 112/54 Arterial Blood Pressure 110/51 Arterial Blood Pressure 103/50 Arterial Blood Pressure 108/59 Arterial Blood Pressure 108/49 Arterial Blood Pressure 102/47 Arterial Blood Pressure 109/50 Arterial Blood Pressure 100/45 Arterial Blood Pressure 99/47 Arterial Blood Pressure 103/47 Arterial Blood Pressure 119/56 Arterial Blood Pressure 122/58 Arterial Blood Pressure 137/68 Arterial Blood Pressure 174/174 Arterial Blood Pressure 113/109 Arterial Blood Pressure 121/71 Arterial Blood Pressure 119/75 Results - Laboratory Findings CBC and BMP: 10/10/17 04:24 10/10/17 04:24 PT/INR, D-dimer PT 11.0 sec (9.0-12.0) 10/03/17 17:10 INR 1.1 (<1.2) 10/03/17 17:10 Abnormal lab findings: Abnormal Labs 10/03/17 10/03/17 10/04/17 17:10 17:10 17:10 WBC Hgb Monocytes # Carbon Dioxide 21 L BUN 26 H Creatinine 1.30 H Glucose 176 H POC Glucose (mg/dL) Hemoglobin A1c 6.5 H Magnesium 1.5 L Alkaline Phosphatase 145 H Total Creatine Kinase <20 L Total Protein Albumin 10/04/17 10/05/17 10/05/17 20:23 06:56 11:40 WBC Hgb Monocytes # Carbon Dioxide BUN Creatinine Glucose POC Glucose (mg/dL) 121 H 126 H 101 H Hemoglobin A1c Magnesium Alkaline Phosphatase Total Creatine Kinase Total Protein Albumin 10/05/17 10/05/17 10/06/17 16:41 20:12 06:57 WBC Hgb Monocytes # Carbon Dioxide BUN Creatinine Glucose POC Glucose (mg/dL) 138 H 113 H 108 H Hemoglobin A1c Magnesium Alkaline Phosphatase Total Creatine Kinase Total Protein Albumin 10/06/17 10/06/17 10/06/17 08:00 08:41 08:41 WBC Hgb 11.3 L Monocytes # Carbon Dioxide BUN Creatinine Glucose 110 H POC Glucose (mg/dL) 104 H Hemoglobin A1c Magnesium Alkaline Phosphatase 138 H Total Creatine Kinase Total Protein 6.1 L Albumin 3.2 L 08/12/1410/06/17 10/06/17 11:08 16:57 19:53 WBC Hgb Monocytes # Carbon Dioxide BUN Creatinine Glucose POC Glucose (mg/dL) 148 H 133 H 132 H Hemoglobin A1c Magnesium Alkaline Phosphatase Total Creatine Kinase Total Protein Albumin 10/07/17 10/07/17 10/07/17 07:21 11:53 17:40 WBC Hgb Monocytes # Carbon Dioxide BUN Creatinine Glucose POC Glucose (mg/dL) 101 H 164 H 128 H Hemoglobin A1c Magnesium Alkaline Phosphatase Total Creatine Kinase Total Protein Albumin 10/07/17 10/08/17 10/08/17 20:15 07:11 12:00 WBC Hgb Monocytes # Carbon Dioxide BUN Creatinine Glucose POC Glucose (mg/dL) 115 H 109 H 144 H Hemoglobin A1c Magnesium Alkaline Phosphatase Total Creatine Kinase Total Protein Albumin 10/08/17 10/08/17 10/09/17 17:16 20:35 06:56 WBC Hgb Monocytes # Carbon Dioxide BUN Creatinine Glucose POC Glucose (mg/dL) 139 H 122 H 111 H Hemoglobin A1c Magnesium Alkaline Phosphatase Total Creatine Kinase Total Protein Albumin 10/09/17 10/09/17 10/09/17 07:31 17:13 20:01 WBC Hgb Monocytes # Carbon Dioxide BUN Creatinine Glucose 103 H POC Glucose (mg/dL) 152 H 146 H Hemoglobin A1c Magnesium Alkaline Phosphatase Total Creatine Kinase Total Protein Albumin 10/10/17 10/10/17 10/10/17 01:16 01:16 01:38 WBC Hgb 11.0 L Monocytes # Carbon Dioxide BUN Creatinine Glucose 139 H POC Glucose (mg/dL) 132 H Hemoglobin A1c Magnesium Alkaline Phosphatase Total Creatine Kinase Total Protein Albumin 10/10/17 10/10/17 10/10/17 04:24 04:24 07:14 WBC 11.0 H Hgb Monocytes # 1.1 H Carbon Dioxide BUN Creatinine Glucose 197 H POC Glucose (mg/dL) 186 H Hemoglobin A1c Magnesium 1.4 L Alkaline Phosphatase Total Creatine Kinase Total Protein Albumin 10/10/17 10/10/17 08:17 13:13 WBC Hgb Monocytes # Carbon Dioxide BUN Creatinine Glucose POC Glucose (mg/dL) 221 H 190 H Hemoglobin A1c Magnesium Alkaline Phosphatase Total Creatine Kinase Total Protein Albumin Assessment and Plan Assessment: patient seen and examined in the intensive care unit with nursing staff at bedside. The patient is on 16 mcg/min of levophed. Vasopressin will be added. Echocardiogram is pending. Blood, urine, sputum cultures pending. Central line and arterial line will be placed. Consent has been obtained from the patient's DPOA. CVP monitoring once CVC is placed. Continue to monitor in ICU. Case discussed with ID who is adjusting ABX for possible RML infiltrate. Recommend swallow evaluation once patient is more alert. ~Alanna Salinas DO
--- NOTE | 2017-10-10 12:32 | XR ---
EXAMINATION TYPE: XR wrist complete LT DATE OF EXAM: 10/10/2017 COMPARISON: NONE HISTORY: Pain TECHNIQUE: Four views submitted. FINDINGS: The osseous structures are intact. The joint spaces are preserved and there is no acute fracture or dislocation. Diffuse osteopenia noted. Benign cyst involving the lunate. IMPRESSION: 1. No definite acute fracture or dislocation if symptoms persist, follow-up study in 7 to 10 days wo uld be suggested
[2017-10-10] MEDS: SODIUM CHLORIDE 0.9% 99 ML with VASOPRESSIN 20 UNIT IV SCH ×4 (12:46→23:57)
--- NOTE | 2017-10-10 13:06 | XR ---
EXAMINATION TYPE: XR chest 1V portable DATE OF EXAM: 10/10/2017 COMPARISON: 10/10/2017 HISTORY: Line placement TECHNIQUE: Single frontal view of the chest is obtained. FINDINGS: There is no focal air space opacity, pleural effusion, or pneumothorax seen. The cardiac silhouette size is within normal limits. The osseous structures are intact. There is ectasia of the aorta with atherosclerotic change. Hyperinflation suggests COPD. Diffuse oste openia with evidence of previous trauma involving the left humerus. Arthropathy of the shoulders. Right-sided central line seen at the cavoatrial junction. IMPRESSION: 1. Central line placement with the tip near the cavoatrial junction and no sizable pneumothorax.
[2017-10-10 13:15] LABS: Glucose,Whole Blood 190 mg/dL (75-99)
[2017-10-10] MEDS ORDERED: SODIUM CHLORIDE 0.9% 500 ML IV ONE ×2 (13:30→14:40)
[2017-10-10] MEDS: cefTRIAXone IN SWFI 2,000 MG/20 ML SYRINGE IVP SCH (13:36)
[2017-10-10] MEDS ORDERED: VANCOMYCIN TROUGH DUE 1 EACH MISC MISCELLANE ONE (15:00)
--- NOTE | 2017-10-10 15:45 | NM ---
EXAMINATION TYPE: NM bone 3 phase DATE OF EXAM: 10/10/2017 COMPARISON: NONE HISTORY: Lt left heel open sore. Triple phase bone scintigraphy was performed following the injection of 24.8 mCi Tc 99m MDP. Immedia te images and 4 hours post injection images acquired. FINDINGS: There is increased perfusion to the left heel. There is increased soft tissue uptake. There is increased uptake on delayed imaging involving the calcaneus posteriorly and along the inferi or plantar surface. IMPRESSION: Findings are compatible cellulitis and osteomyelitis of the calcaneus.
[2017-10-10 16:19] LABS: Glucose,Whole Blood 88 mg/dL (75-99)
[2017-10-10] MEDS: PIPERACILLIN-TAZOBACTAM 3.375 GM in DEXTROSE/WATER 1 50ML.BAG IVPB SCH (17:44)
[2017-10-10] MEDS: VANCOMYCIN 1,500 MG in SODIUM CHLORIDE 0.9% 250 ML IVPB SCH (17:45)
--- NOTE | 2017-10-10 18:12 | P.PCN ---
Date of Procedure: 10/10/17 Preoperative Diagnosis: Septic shock, hemodynamic instability Postoperative Diagnosis: Septic shock, hemodynamic instability Procedure(s) Performed: Right internal jugular central line Surgeon: Alanna Salinas Estimated Blood Loss (ml): 5 Pathology: none sent Condition: critical Disposition: ICU Indications for Procedure: Pressors, CVP monitoring Description of Procedure: Central Venous Catheter (CVC, Central Line) Placement Indication: Hemodynamic monitoring/Intravenous access A time-out was completed verifying correct patient, procedure, site, positioning , and special equipment if applicable. The patient was placed in a dependent position appropriate for central line placement based on the vein to be cannulated. The patients right/ neck was prepped and draped in sterile fashion. 1% Lidocaine was used to anesthetize the surrounding skin area. A triple lumen catheter was introduced into the the internal jugular vein using the Seldinger technique and under ultrasound guidance. The catheter was threaded smoothly over the guide wire and appropriate blood return was obtained. Each lumen of the catheter was evacuated of air and flushed with sterile saline. The catheter was then sutured in place to the skin and a sterile dressing applied. Perfusion to the extremity distal to the point of catheter insertion was checked and found to be adequate. Estimated Blood Loss: 5 mL Post-procedure CXR obtained The patient tolerated the procedure well and there were no complications.
--- NOTE | 2017-10-10 18:14 | P.PCN ---
Date of Procedure: 10/10/17 Preoperative Diagnosis: shock, hemodynamic instability Postoperative Diagnosis: Septic shock, hemodynamic instability Procedure(s) Performed: Right arterial line Surgeon: Alanna Salinas Estimated Blood Loss (ml): 0 Condition: critical Disposition: ICU Indications for Procedure: continuous blood pressure monitoring Description of Procedure: Indication: Hemodynamic monitoring A time-out was completed verifying correct patient, procedure, site, positioning , and special equipment if applicable. Allens test was performed to ensure adequate perfusion. The patients right/wrist was prepped and draped in sterile fashion. 1% Lidocaine was used to anesthetize the area. A 18G Arrow arterial line was introduced into the radial artery. The catheter was threaded over the guide wire and the needle was removed with appropriate pulsatile blood return. The catheter was then sutured in place to the skin and a sterile dressing applied. Perfusion to the extremity distal to the point of catheter insertion was checked and found to be adequate. Estimated Blood Loss: 0 The patient tolerated the procedure well and there were no complications.
--- NOTE | 2017-10-10 18:37 | PN ---
PROGRESS NOTE DATE OF SERVICE: 10/10/2017. REASON FOR FOLLOWUP: 1. Left heel infected pressure ulcer. 2. Patient with significant hypertension. INTERVAL HISTORY: The patient apparently started having a problem with hypertension last night for initially the patient was tried on the IV fluid, subsequently has been transferred to ICU, where the patient requiring pressor support. The patient has been lethargic, able to provide no history. No nausea, vomiting has been noticed or any abdominal pain or diarrhea per the nursing staff. REVIEW OF SYSTEMS: Could not be obtained, where possible has mentioned in the HPI. PAST MEDICAL AND SURGICAL HISTORY: Reviewed. Any changes in medications were reviewed. EXAMINATION: Blood pressure 108/59 with a pulse of 83, temperature 97.4. General description is an elderly female lying in bed in no distress. HEENT is slight pallor. No scleral icterus. Oral mucous membranes dry. LUNGS: Unlabored breathing with decreased breath sounds in the bases. No wheeze. HEART: S1, S2. Regular rate and rhythm. ABDOMEN: Soft. No guarding. No rigidity. No . EXTREMITIES: No edema of feet. Left heel is currently dressed up. No obvious drainage on the dressing. NEUROLOGIC: The patient remains to be lethargic, unable to provide any history. LAB: White count elevated at 11 with a BUN of 15, creatinine 0.80. Vancomycin trough is slightly on the high side at 20, but decreased from previous reading of 25.5. Left heel with Proteus mirabilis, Enterococcus faecalis and methicillin resistant Staph aureus. The patient did have a chest x-ray which is showing hyperinflation suggestive of COPD and diffuse osteopenia. Bone scan has been completed with suspicious osteomyelitis of the calcaneus. DIAGNOSTIC IMPRESSION AND PLAN: Patient with a left heel infected pressure ulcer, now with evidence of osteomyelitis at the base of the bone, skin culture positive for Enterococcus, Proteus and methicillin- resistant Staphylococcus aureus, for which the patient currently covered with vancomycin and Rocephin. In view of significant change in her clinical condition, blood cultures will be repeated, will broaden her gram-negative coverage by addition of Zosyn, discontinue the Rocephin. Will monitor clinical course closely and adjust antibiotic further if needed. Plan of care discussed in detail with the early years teacher. MMODL / IJN: [id number] /
--- NOTE | 2017-10-10 18:49 | P.PN ---
Subjective Progress Note Date: 10/10/17 This patient is a 77-year-old right-handed white female who is status post recent left hip hemiarthroplasty on 07/10/2017. She was admitted to hospital for evaluation of syncope and inability to ambulate. 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 The patient did not qualify for any stroke intervention. She was sent for routine EEG which was reviewed and failed to reveal any epileptiform discharges. Her mental status has improved to some degree today. She does have history of underlying dementia as well. Neurologically she remains intact. She denies any headache or focal weakness. We will continue close neurological follow-up for the patient. She is being treated for wound healing involving her left heel. She has history of underlying insulin-dependent diabetes mellitus. We recommend tight control of her blood sugars. She has undergone some debridement. She has a bandage in place but states her left foot does pain her. Patient is being followed by orthopedic surgery for recent history of left hip hemiarthroplasty that was done back on 07/10/2017. Orthopedic surgery is recommending weightbearing as tolerated with a walker and physical therapy. Patient has had no further episodes of seizure-like activity. As noted her EEG failed to reveal any epileptiform discharges. Orthopedics is following the patient for her left hip pain. She continues to show evidence of underlying dementia and is a very poor historian. Her left heel ulcer is slowly being treated and show some signs of improvement. We'll await further recommendations from infectious disease. Plans are for consideration for returning the patient to fpc at time of discharge. Unfortunately last night the patient developed severe hypotension. She was given IV fluid resuscitation but this did not help. She was transferred to the intensive care unit for further evaluation and treatment. She was started on Levophed to maintain her blood pressure. She is currently on 16 mics of Levophed. She was subsequently weaned off of Levophed and her pressure has now stabilized. She seems to be back to baseline level of function in the intensive care unit at this time. Most likely this patient developed some degree of dehydration producing her hypotensive episode. We will continue to follow her progress closely with multiple other specialists. She does seem to be more appropriate this afternoon and is following some simple commands. She does have underlying history of dementia. We will continue close neurological follow-up with this patient in the intensive care unit. We will continue close neurological follow-up the patient during this admission. Objective - Vital Signs Vital signs: Vital Signs Temp 97.4 F L 10/10/17 16:19 Pulse 83 10/10/17 16:00 Resp 33 H 10/10/17 16:00 BP 75/63 10/10/17 13:30 Pulse Ox 95 10/10/17 14:30 Intake & Output 10/09/17 10/10/17 10/10/17 18:59 06:59 18:59 Intake Total 100 976.25 1634.5 Output Total 875 1650 Balance 100 101.25 -15.5 Weight 117.934 kg Intake: IV 683 871 3569 0.9 100 1040 Magnesium Sulfate-D5w Pmx 200 1 gm In Dextrose/Water 1 100ml.bag @ 100 mls/hr IVPB Q1H [facility] Rx#: [id number] Sodium Chloride 0.9% 1, 40 20 000 ml @ 50 mls/hr IV . Q20H [facility] Rx#:[id number] Sodium Chloride 0.9% 99 36 ml @ 0.03 UNITS/MIN 9 mls /hr IV .Q11H7M [facility] with Vasopressin 20 unit Rx#: [id number] Vancomycin 1,500 mg In 250 Sodium Chloride 0.9% 250 ml @ 125 mls/hr IVPB Q16H [facility] Rx#:[id number] Intake, IV Titration 96.25 338.5 Amount Norepinephrine 4 mg In 96.25 338.5 Dextrose 5% in Water 250 ml @ Titrate IV .Q0M [facility] Rx#:[id number] Oral 590 Output: Urine 875 1650 Other: Voiding Method Diaper Indwelling Catheter Indwelling Catheter Incontinent # Voids 2 1 1 # Bowel Movements 0 ABP, PAP, CO, CI - Last Documented Arterial Blood Pressure 108/59 - Exam Physical Examination: PHYSICAL EXAMINATION: Patient is resting comfortably in bed. Patient examined in the intensive care unit today and seems to be appropriate for her age. VITAL SIGNS: Blood pressure is [108/59]. Heart rate is [83]. Respiration is [30 to]. Temperature is [97.4]. HEENT: Head is atraumatic, neck is supple, there were no carotid bruits. CHEST: Lungs are clear to auscultation and percussion. CARDIAC: S1, S2 normal rate and rhythm. There is no murmur. ABDOMEN: Soft and nontender. Bowel sounds are present. EXTREMITIES: There is no pedal edema. Peripheral pulses are present. Neurological examination: Patient neurological exam is unchanged from yesterday. - Labs CBC & Chem 7: 10/10/17 04:24 10/10/17 04:24 Labs: Abnormal Lab Results - Last 24 Hours (Table) 10/09/17 10/10/17 10/10/17 Range/Units 20:01 01:16 01:16 WBC (3.8-10.6) k/uL Hgb 11.0 L (11.4-16.0) gm/dL Monocytes # (0-1.0) k/uL Glucose 139 H (74-99) mg/dL POC Glucose (mg/dL) 146 H (75-99) mg/dL Magnesium (1.6-2.3) mg/dL 10/10/17 10/10/17 10/10/17 Range/Units 01:38 04:24 04:24 WBC 11.0 H (3.8-10.6) k/uL Hgb (11.4-16.0) gm/dL Monocytes # 1.1 H (0-1.0) k/uL Glucose 197 H (74-99) mg/dL POC Glucose (mg/dL) 132 H (75-99) mg/dL Magnesium 1.4 L (1.6-2.3) mg/dL 10/10/17 10/10/17 10/10/17 Range/Units 07:14 08:17 13:13 WBC (3.8-10.6) k/uL Hgb (11.4-16.0) gm/dL Monocytes # (0-1.0) k/uL Glucose (74-99) mg/dL POC Glucose (mg/dL) 186 H 221 H 190 H (75-99) mg/dL Magnesium (1.6-2.3) mg/dL Assessment and Plan (1) Syncope and collapse Current Visit: Yes Status: Acute Code(s): R55 - SYNCOPE AND COLLAPSE SNOMED Code(s): 440580473 (2) Dementia Current Visit: Yes Status: Acute Code(s): F03.90 - UNSPECIFIED DEMENTIA WITHOUT BEHAVIORAL DISTURBANCE SNOMED Code(s): 43199022 (3) Left hip pain Current Visit: Yes Status: Acute Code(s): M25.552 - PAIN IN LEFT HIP SNOMED Code(s): 17490245 (4) Status post hip hemiarthroplasty Current Visit: No Status: Acute Code(s): Z96.649 - PRESENCE OF UNSPECIFIED ARTIFICIAL HIP JOINT SNOMED Code(s): 260772033 Plan: This patient is a 77-year-old female who recently underwent left hip hemiarthroplasty on 07/10/2017. She is residing in a fpc and has been having increasing difficulty to ambulate as well as possible syncopal episode. She had a event yesterday morning suggesting possibility of seizure and a code stroke was initiated. She did not have any evidence for acute stroke and did not require any further intervention. Today she seems to be back to baseline level of function terms of her mental status. She underwent routine EEG yesterday which failed to reveal any epileptiform discharges. She is undergoing debridement of her left heel. Her mental status has shown improvement today. Patient developed some degree of hypotension yesterday evening and was given some fluid challenges with not much response. She was transferred into the intensive care unit this morning and seems to be doing much better now in the ICU. She has been taken off of Levophed and her blood pressure is stabilized. She has had no further episodes of seizure-like activity since yesterday. As noted her EEG failed to reveal any epileptiform abnormalities. Patient is awaiting return to her fpc possibly early this week. There is been no significant improvement in her overall neurological status. She does have history of underlying dementia. She is awaiting discharge back to the fpc when she is medically stable. We will continue close neurological follow-up for the patient during this admission. Her overall prognosis at this time remains very guarded. We will continue to follow her progress closely in the intensive care unit. As noted her overall prognosis remains guarded.
[2017-10-10] MEDS: MELATONIN 3 MG TABLET PO SCH (21:05)
[2017-10-10] MEDS: DONEPEZIL 10 MG TAB PO SCH (21:06)
[2017-10-10 21:09] LABS: Glucose,Whole Blood 109 mg/dL (75-99)
[2017-10-11] MEDS: PIPERACILLIN-TAZOBACTAM 3.375 GM in DEXTROSE/WATER 1 50ML.BAG IVPB SCH ×3 (00:15→15:18)
[2017-10-11] MEDS: SODIUM CHLORIDE 0.9% 1,000 ML IV SCH ×2 (06:20→21:12)
[2017-10-11] MEDS: metFORMIN 500 MG TAB PO SCH ×2 (07:07→19:06)
[2017-10-11] MEDS: PANTOPRAZOLE 40 MG TABLET PO SCH (07:07)
[2017-10-11 07:51] LABS: Basophils % (A) 0 %; Eosinophils # (A) 0.3 k/uL (0-0.7); Eosinophils % (A) 3 %; HCT 34.3 % (34.0-46.0); HGB 11.1 gm/dL (11.4-16.0); Lymphocytes # (A) 1.3 k/uL (1.0-4.8); Lymphocytes % (A) 15 %; MCHC 32.4 g/dL (31.0-37.0); MCV 89.4 fL (80.0-100.0); Mean Platelet Volume 7.6; Monocytes # (A) 0.6 k/uL (0-1.0); Monocytes % (A) 7 %; Neutrophils # (A) 6.6 k/uL (1.3-7.7); Neutrophils % (A) 74 %; Platelet Count 243 k/uL (150-450); RBC 3.83 m/uL (3.80-5.40); RDW 14.8 % (11.5-15.5); WBC 8.8 k/uL (3.8-10.6)
[2017-10-11 07:51] LABS: Glucose,Whole Blood 197 mg/dL (75-99)
[2017-10-11] MEDS: IPRATROPIUM-ALBUTEROL 3 ML NEB INHALATION SCH ×3 (07:51→20:32)
[2017-10-11 08:03] LABS: Calcium 8.7 mg/dL (8.4-10.2); Magnesium 1.9 mg/dL (1.6-2.3); Phosphorus 3.6 mg/dL (2.5-4.5)
--- NOTE | 2017-10-11 09:16 | XR ---
EXAMINATION TYPE: XR chest 1V DATE OF EXAM: 10/11/2017 COMPARISON: 10/10/2017 HISTORY: Line placement TECHNIQUE: Single frontal view of the chest is obtained. FINDINGS: Right-sided central line seen with the tip overlying the SVC. Bilateral subsegmental conso lidation. Hyperinflation suggests COPD. No pneumothorax. Diffuse osteopenia and arthropathy shoulders . Remote trauma to left shoulder. Atherosclerotic change of the aorta. Heart size stable. IMPRESSION: 1. COPD with bilateral atelectasis or infiltrate.
[2017-10-11] MEDS: INSULIN ASPART 100 UNIT/ML 1 ML 10 ML VIAL SQ SCH ×4 (09:18→21:28)
[2017-10-11] MEDS: MAGNESIUM SULFATE-D5W PMX 1 GM in DEXTROSE/WATER 1 100ML.BAG IVPB SCH ×2 (09:19→11:21)
[2017-10-11] MEDS: amLODIPine 5 MG TAB PO SCH (09:20)
[2017-10-11] MEDS: SPIRONOLACTONE 25 MG TAB PO SCH (09:21)
[2017-10-11] MEDS: SODIUM CHLORIDE 0.9% 99 ML with VASOPRESSIN 20 UNIT IV SCH ×2 (09:21)
[2017-10-11] MEDS: GABAPENTIN 100 MG CAP PO SCH ×3 (09:21→21:12)
[2017-10-11] MEDS: MEMANTINE 10 MG TAB PO SCH ×2 (09:21→21:11)
[2017-10-11] MEDS: METOPROLOL SUCCINATE (ER) 25 MG TAB.ER.24H PO SCH (09:21)
[2017-10-11] MEDS: ATORVASTATIN 20 MG TAB PO SCH (09:21)
[2017-10-11] MEDS: APIXABAN 5 MG TAB PO SCH ×2 (09:21→21:12)
[2017-10-11] MEDS: ESCITALOPRAM 5 MG TAB PO SCH (09:21)
[2017-10-11] MEDS: COLLAGENASE 250 UNIT/GM OINTMENT 30 GM TUBE TOPICAL SCH (09:22)
[2017-10-11] MEDS: traMADol 50 MG TAB PO PRN (09:42)
--- NOTE | 2017-10-11 10:10 | P.PN ---
<Cris Carver E - Last Filed: 10/11/17 09:58> Subjective Progress Note Date: 10/11/17 HPI: This is a 77-year-old female patient being seen examined and evaluated today for consultation. This patient originally was admitted to the hospital for evaluation of possible syncope and inability to ambulate. The patient is also known to have a left heel infected pressure ulcer which was positive for MRSA and multiple other organisms. Infectious disease was put on consult for that and she has been on IV antibiotics. She also has orthopedics on consult as well and is undergoing a bone scan today to look for any osteomyelitis. She also developed somewhat of a seizure-like activity inpatient, neurology was put on consult and an EEG was performed and was negative for any acute seizures at that time. Apparently the patient had been hemodynamically stable, she had no WBC count and no fevers. Apparently overnight the patient did develop some hypotension. She did receive an IV fluid bolus at that time and she was transferred to the intensive care unit for further evaluation and monitoring. The patient was started on Levophed to maintain her blood pressures and she currently continues on 16 mics at this time. Upon examination she is resting up in bed on 2 L of supplemental oxygen. She appears tired however does answer questions appropriately and is easily arousable. She states she does occasionally have shortness of breath with exertion and activity. She denies any cough or congestion. She has had good urine output. She did receive a 1 time dose of Lasix yesterday. She does occasionally complain of some lower back flank area pain. She has had a decreased appetite. 10/11/17- patient is being seen examined and evaluated today on rounds in the intensive care unit. The patient is currently hemodynamically stable. All of her pressors were weaned off last night. Her current CVP is 9. She did have some marginal urine output overnight however it has improved today. Chest x- ray was reviewed and shows COPD with bilateral atelectasis/infiltrates. She did have a bone scan yesterday which did reveal cellulitis and osteomyelitis of the calcaneus. She does have a good appetite and ate about 75% of her breakfast and is requesting ice cream cups. She is much more alert and awake today. Antibiotics were adjusted yesterday by infectious disease. The patient does not remember most of yesterday, she also has underlying dementia. Case is discussed with the nurse at length. Objective - Vital Signs Vital signs: Vital Signs Temp 98.4 F 10/11/17 08:00 Pulse 93 10/11/17 09:00 Resp 24 10/11/17 09:00 BP 75/63 10/10/17 13:30 Pulse Ox 95 10/11/17 09:00 Intake & Output 10/10/17 10/11/17 10/11/17 18:59 06:59 18:59 Intake Total 1728.5 493.5 316 Output Total 1750 346 275 Balance -21.5 147.5 41 Weight 98.4 kg Intake: IV 1365 193.5 56 0.9 1100 90 Magnesium Sulfate-D5w Pmx 200 1 gm In Dextrose/Water 1 100ml.bag @ 100 mls/hr IVPB Q1H [facility] Rx#: [id number] Piperacillin-Tazobactam 3 37.5 .375 gm In Dextrose/Water 1 50ml.bag @ 12.5 mls/hr IVPB Q8HR [facility] Rx#: [id number] Sodium Chloride 0.9% 1, 20 30 50 000 ml @ 50 mls/hr IV . Q20H [facility] Rx#:[id number] Sodium Chloride 0.9% 99 45 ml @ 0.03 UNITS/MIN 9 mls /hr IV .Q11H7M [facility] with Vasopressin 20 unit Rx#: [id number] pressure bag 36 6 Intake, IV Titration 363.5 Amount Norepinephrine 4 mg In 338.5 Dextrose 5% in Water 250 ml @ Titrate IV .Q0M [facility] Rx#:[id number] Piperacillin-Tazobactam 3 25.0 .375 gm In Dextrose/Water 1 50ml.bag @ 12.5 mls/hr IVPB Q8HR [facility] Rx#: [id number] Oral 300 260 Output: Urine 1750 346 275 Other: Voiding Method Indwelling Catheter Indwelling Catheter Indwelling Catheter # Voids 1 # Bowel Movements 0 1 1 ABP, PAP, CO, CI - Last Documented Arterial Blood Pressure 143/58 - Exam GENERAL EXAM: More awake and Alert, intermittent confusion with a baseline of dementia, comfortable in no apparent distress. HEAD: Normocephalic. EYES: Normal reaction of pupils, equal size. NOSE: Clear with pink turbinates. THROAT: No erythema or exudates. NECK: No masses, no JVD. CHEST: No chest wall deformity. LUNGS: Lungs noted to be diminished throughout with some faint expiratory wheezing. CVS: S1 and S2 normal with no audible mumurs, regular rhythm. ABDOMEN: No hepatosplenomegaly, normal bowel sounds, no guarding or rigidity. EXTREMITIES: No edema noted, pedal pulses palpable. Left lower extremity dressing clean dry and intact CENTRAL NERVOUS SYSTEM: No focal deficits, tone is normal in all 4 extremities. - Labs CBC & Chem 7: 10/11/17 07:40 10/11/17 07:40 Labs: Abnormal Lab Results - Last 24 Hours (Table) 10/10/17 10/10/17 10/11/17 Range/Units 13:13 21:08 07:40 Hgb 11.1 L (11.4-16.0) gm/dL Glucose (74-99) mg/dL POC Glucose (mg/dL) 190 H 109 H (75-99) mg/dL 10/11/17 10/11/17 Range/Units 07:40 07:49 Hgb (11.4-16.0) gm/dL Glucose 178 H (74-99) mg/dL POC Glucose (mg/dL) 197 H (75-99) mg/dL Assessment and Plan Assessment: Assessment Shock of unclear etiology sepsis versus other Right middle lobe infiltrate possible pneumonia Hypotension Acute hypoxic respiratory failure requiring supplemental oxygen Left heel wound Left hip pain, Generalized weakness and medical debility Hypomagnesemia Underlying dementia Osteomyelitis of the left foot Plan Medications have been reviewed and will be continued as ordered. Patient has been hemodynamically stable Continue to monitor CVP Continue to monitor for any hypotension, vasopressors as needed Pending blood cultures and urine cultures Echocardiogram pending Infectious disease on consult and adjusting antibiotics Continue to monitor and replace electrolytes per protocol Bone scan reviewed Continue with pulmonary hygiene, coughing and deep breathing exercises, and supportive care. Supplemental oxygen to maintain oxygen saturations of 92% or better. Initiate and encourage incentive spirometer Wound care Continue nebulizer treatments. GI and DVT prophylaxis. Protonix and Eliquis Increase activity as tolerated and per ortho recommendations, PT and OT also We will continue to monitor labs/results and adjust treatment as necessary. Further recommendations pending. I performed an examination of the patient and discussed their management with the nurse practitioner. I have reviewed the nurse practitioner's note and agree with the documented findings and plan of care. <Alanna Salinas - Last Filed: 10/11/17 13:29> Objective - Vital Signs Vital signs: Vital Signs Temp 98.4 F 10/11/17 08:00 Pulse 80 10/11/17 13:12 Resp 20 10/11/17 13:00 BP 75/63 10/10/17 13:30 Pulse Ox 95 10/11/17 13:00 Intake & Output 10/10/17 10/11/17 10/11/17 18:59 06:59 18:59 Intake Total 1728.5 493.5 1138.5 Output Total 1750 346 465 Balance -21.5 147.5 673.5 Weight 98.4 kg Intake: IV 1365 193.5 478.5 0.9 1100 90 Magnesium Sulfate-D5w Pmx 200 200 1 gm In Dextrose/Water 1 100ml.bag @ 100 mls/hr IVPB Q1H [facility] Rx#: [id number] Piperacillin-Tazobactam 3 37.5 37.5 .375 gm In Dextrose/Water 1 50ml.bag @ 12.5 mls/hr IVPB Q8HR [facility] Rx#: [id number] Sodium Chloride 0.9% 1, 20 30 110 000 ml @ 50 mls/hr IV . Q20H [facility] Rx#:[id number] Sodium Chloride 0.9% 99 45 ml @ 0.03 UNITS/MIN 9 mls /hr IV .Q11H7M [facility] with Vasopressin 20 unit Rx#: [id number] Vancomycin 1,500 mg In 125 Sodium Chloride 0.9% 250 ml @ 125 mls/hr IVPB Q16H [facility] Rx#:[id number] pressure bag 36 6 Intake, IV Titration 363.5 Amount Norepinephrine 4 mg In 338.5 Dextrose 5% in Water 250 ml @ Titrate IV .Q0M [facility] Rx#:[id number] Piperacillin-Tazobactam 3 25.0 .375 gm In Dextrose/Water 1 50ml.bag @ 12.5 mls/hr IVPB Q8HR [facility] Rx#: [id number] Oral 300 660 Output: Urine 1750 346 465 Other: Voiding Method Indwelling Catheter Indwelling Catheter Indwelling Catheter # Voids 1 # Bowel Movements 0 1 1 ABP, PAP, CO, CI - Last Documented Arterial Blood Pressure 119/54 - Labs CBC & Chem 7: 10/11/17 07:40 08/15/18 07:40 Labs: Abnormal Lab Results - Last 24 Hours (Table) 10/10/17 10/11/17 10/11/17 Range/Units 21:08 07:40 07:40 Hgb 11.1 L (11.4-16.0) gm/dL Glucose 178 H (74-99) mg/dL POC Glucose (mg/dL) 109 H (75-99) mg/dL 10/11/17 10/11/17 Range/Units 07:49 12:17 Hgb (11.4-16.0) gm/dL Glucose (74-99) mg/dL POC Glucose (mg/dL) 197 H 182 H (75-99) mg/dL Assessment and Plan Assessment: Patient seen and examined in the ICU with nursing staff at bedside. Patient has been off pressors since yesterday. She is more alert and conversational today. Tolerating her diet. She had 3 BMs overnight and has adequate urine output. She is on 2L NC. DC arterial and central lines. Ok to triage out of ICU today if bed needed. ~Alanna Salinas DO
[2017-10-11] MEDS: MULTIVITAMINS, THERA 1 EACH TAB PO SCH (11:22)
[2017-10-11] MEDS: VANCOMYCIN 1,250 MG in SODIUM CHLORIDE 0.9% 250 ML IVPB SCH (11:31)
[2017-10-11 12:19] LABS: Glucose,Whole Blood 182 mg/dL (75-99)
--- NOTE | 2017-10-11 13:26 | P.PN ---
Subjective Progress Note Date: 10/11/17 This is a 77-year-old female who is admitted after a syncopal episode. Orthopedics is following the patient for left hip pain. Patient has a history of left hip hemiarthroplasty on 07/10/2017. Patient's past medical history is significant for Alzheimer's. Patient is status post debridement of the left heel. Patient states that she has no pain in her left hip today. Patient was transferred to the ICU for hypotension. Patient denies any fever/chills, numbness, weakness, tingling, abdominal pain, shortness of breath or chest pain. Objective - Vital Signs Vital signs: Vital Signs Temp 98.4 F 10/11/17 08:00 Pulse 80 10/11/17 13:12 Resp 20 10/11/17 13:00 BP 75/63 10/10/17 13:30 Pulse Ox 95 10/11/17 13:00 Intake & Output 10/10/17 10/11/17 10/11/17 18:59 06:59 18:59 Intake Total 1728.5 493.5 1138.5 Output Total 1750 346 465 Balance -21.5 147.5 673.5 Weight 98.4 kg Intake: IV 1365 193.5 478.5 0.9 1100 90 Magnesium Sulfate-D5w Pmx 200 200 1 gm In Dextrose/Water 1 100ml.bag @ 100 mls/hr IVPB Q1H [facility] Rx#: [id number] Piperacillin-Tazobactam 3 37.5 37.5 .375 gm In Dextrose/Water 1 50ml.bag @ 12.5 mls/hr IVPB Q8HR [facility] Rx#: [id number] Sodium Chloride 0.9% 1, 20 30 110 000 ml @ 50 mls/hr IV . Q20H [facility] Rx#:[id number] Sodium Chloride 0.9% 99 45 ml @ 0.03 UNITS/MIN 9 mls /hr IV .Q11H7M [facility] with Vasopressin 20 unit Rx#: [id number] Vancomycin 1,500 mg In 125 Sodium Chloride 0.9% 250 ml @ 125 mls/hr IVPB Q16H [facility] Rx#:[id number] pressure bag 36 6 Intake, IV Titration 363.5 Amount Norepinephrine 4 mg In 338.5 Dextrose 5% in Water 250 ml @ Titrate IV .Q0M [facility] Rx#:[id number] Piperacillin-Tazobactam 3 25.0 .375 gm In Dextrose/Water 1 50ml.bag @ 12.5 mls/hr IVPB Q8HR [facility] Rx#: [id number] Oral 300 660 Output: Urine 1750 346 465 Other: Voiding Method Indwelling Catheter Indwelling Catheter Indwelling Catheter # Voids 1 # Bowel Movements 0 1 1 ABP, PAP, CO, CI - Last Documented Arterial Blood Pressure 119/54 - Exam On exam the patient is resting comfortably in bed in no acute distress. There is no tenderness to palpation over the left hip. There is no swelling, erythema or ecchymosis. patient has full active and passive range of motion of the left hip without any pain. Calf is soft and nontender to palpation. Left lower extremity is warm and well perfused. Neurovascular status and circulatory status are intact. - Labs CBC & Chem 7: 10/11/17 07:40 10/11/17 07:40 Labs: Abnormal Lab Results - Last 24 Hours (Table) 10/10/17 10/11/17 10/11/17 Range/Units 21:08 07:40 07:40 Hgb 11.1 L (11.4-16.0) gm/dL Glucose 178 H (74-99) mg/dL POC Glucose (mg/dL) 109 H (75-99) mg/dL 10/11/17 10/11/17 Range/Units 07:49 12:17 Hgb (11.4-16.0) gm/dL Glucose (74-99) mg/dL POC Glucose (mg/dL) 197 H 182 H (75-99) mg/dL Assessment and Plan (1) Left hip pain Current Visit: Yes Status: Acute Code(s): M25.552 - PAIN IN LEFT HIP SNOMED Code(s): 70027090 (2) Fall Current Visit: No Status: Acute Code(s): W19.XXXA - UNSPECIFIED FALL, INITIAL ENCOUNTER SNOMED Code(s): 8791885 Plan: 1. X-rays of the left hip show left hip hemiarthroplasty in good position and alignment. CT and x-rays are negative for any acute fracture or dislocation. 2. Recommend weightbearing as tolerated with a walker and physical therapy when patient is medically able. 3. No surgical intervention planned. Patient may follow up as an outpatient.
--- NOTE | 2017-10-11 14:07 | ECHOF ---
Referral Reason:sob MEASUREMENTS -------- HEIGHT: 182.9 cm WEIGHT: 117.9 kg BP: 129/61 RVIDd: 2.6 cm (< 3.3) IVSd: 1.3 cm (0.6 - 1.1) LVIDd: 4.7 cm (3.9 - 5.3) LVPWd: 1.2 cm (0.6 - 1.1) IVSs: 2.0 cm LVIDs: 3.7 cm LVPWs: 1.2 cm LA Diam: 3.2 cm (2.7 - 3.8) LAESV Index (A-L): 19.05 ml/m Ao Diam: 3.8 cm (2.0 - 3.7) AV Cusp: 2.0 cm (1.5 - 2.6) MV EXCURSION: 16.312 mm (> 18.000) MV EF SLOPE: 38 mm/s (70 - 150) EPSS: 1.2 cm MV E Alexei: 0.65 m/s MV DecT: 271 ms MV A Alexei: 0.87 m/s MV E/A Ratio: 0.74 AR PHT: 693 ms RAP: 5.00 mmHg RVSP: 30.81 mmHg FINDINGS -------- Sinus rhythm. This was a technically adequate study. The left ventricular size is normal. There is mild concentric left ventricular hypertrophy. Overa ll left ventricular systolic function is mildly impaired with, an EF between 45 - 50 %. Basal infer ior LV wall motion is hypokinetic. Apical inferior LV wall motion is hypokinetic. The right ventricle is normal in size. Normal LA size by volume 22+/-6 ml/m2. The right atrium is normal in size. There is mild aortic valve sclerosis. There is mild aortic regurgitation. The mitral valve leaflets are mildly thickened. Mild mitral annular calcification present. Mild tricuspid regurgitation present. Right ventricular systolic pressure is normal at < 35 mmHg. The pulmonic valve was not well visualized. The aortic root size is normal. Normal inferior vena cava with normal inspiratory collapse consistent with estimated right atrial pre ssure of 5 mmHg. There is no pericardial effusion. 5.0mg OF Lumason UTLIZED: 2 OR MORE WALL SEGMENTS NOT VISUALIZED. CONCLUSIONS -------- 1. Sinus rhythm. 2. This was a technically adequate study. 3. The left ventricular size is normal. 4. There is mild concentric left ventricular hypertrophy. 5. Overall left ventricular systolic function is mildly impaired with, an EF between 45 - 50 %. 6. Basal inferior LV wall motion is hypokinetic. 7. Apical inferior LV wall motion is hypokinetic. 8. The right ventricle is normal in size. 9. Normal LA size by volume 22+/-6 ml/m2. 10. The right atrium is normal in size. 11. 5.0mg OF Lumason UTLIZED: 2 OR MORE WALL SEGMENTS NOT VISUALIZED. 12. There is mild aortic valve sclerosis. 13. There is mild aortic regurgitation. 14. The mitral valve leaflets are mildly thickened. 15. Mild mitral annular calcification present. 16. Mild tricuspid regurgitation present. 17. Right ventricular systolic pressure is normal at < 35 mmHg. 18. The pulmonic valve was not well visualized. 19. The aortic root size is normal. 20. Normal inferior vena cava with normal inspiratory collapse consistent with estimated right atrial pressure of 5 mmHg. 21. There is no pericardial effusion. DUAL RATE DEALER: Apple Dominique RDCS
[2017-10-11 17:49] LABS: Glucose,Whole Blood 113 mg/dL (75-99)
--- NOTE | 2017-10-11 18:34 | PN ---
PROGRESS NOTE DATE OF SERVICE: 10/11/2017. REASON FOR FOLLOWUP: 1. Left foot pressure ulcer with osteomyelitis. 2. Possible pneumonia. INTERVAL HISTORY: The patient is afebrile. She is more awake and alert. She is hemodynamically stable. Denies having any chest pain. Occasional cough. No abdominal pain or any worsening pain to the left heel area. EXAMINATION: Blood pressure 114/50 with a pulse of 81, temperature 98. She is 94% on 2 L nasal cannula. General description is an elderly female lying in bed in no distress. Respiratory system: Unlabored breathing with decreased breath sounds at the bases. No wheeze. Heart S1, S2. Regular rate and rhythm. Abdomen is soft, nontender. Central nervous system: No focal deficits. Left heel is currently dressed up. No obvious drainage on the dressing. LABS: Hemoglobin is 11.1, white count 8.8. BUN of 15, creatinine 0.85. DIAGNOSTIC IMPRESSION AND PLAN: Patient with left heel pressure ulcer stage III, now with evidence of underlying osteomyelitis acute. The patient in ICU because of hypotension. Did have x-ray that did show some atelectasis but no definite infiltrate or pneumonia. The patient is currently covered with Vancomycin and Zosyn that will be continued while waiting for clinical condition to stabilize. Local wound care to continue with Santyl. Keep the area off the pressure. Continue supportive care. MMODL / IJN: [id number] /
[2017-10-11] MEDS: BUDESONIDE 0.5 MG/2 ML NEBU INHALATION SCH (20:33)
[2017-10-11] MEDS: DONEPEZIL 10 MG TAB PO SCH (21:12)
[2017-10-11] MEDS: MELATONIN 3 MG TABLET PO SCH (21:12)
[2017-10-11 21:27] LABS: Glucose,Whole Blood 199 mg/dL (75-99)
--- NOTE | 2017-10-11 23:32 | PN ---
PROGRESS NOTE DATE OF SERVICE: 10/11/2017. SUBJECTIVE: A 77-year-old white female who has been weaned off the norepinephrine in the ICU. Her blood pressure is maintaining over 100 systolic off norepinephrine. She will be transferred out of the ICU today. Remains on broad-spectrum antibiotics x2, to treating MRSA type osteomyelitis in her left heel and possibly sepsis secondary to that. Not sure why she developed severe hypotension except possibly due to septic shock due to the infection. She is up awake talking. She is confused. She is wondering how she ended up in the hospital. Cardiovascular, S1, S2. Lungs clear. GI soft. Hematology negative Homans. ASSESSMENT: 1. Delirium. 2. Dementia. 3. Osteomyelitis, left heel. 4. Septic shock. 5. Hypotension, resolved off norepinephrine. Transfer to regular medical floor. Try to rehydrate the patient. MMODL / IJN: [id number] /
--- NOTE | 2017-10-11 23:52 | P.PN ---
Subjective Progress Note Date: 10/11/17 This patient is a 77-year-old right-handed white female who is status post recent left hip hemiarthroplasty on 07/10/2017. She was admitted to hospital for evaluation of syncope and inability to ambulate. 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 The patient did not qualify for any stroke intervention. She was sent for routine EEG which was reviewed and failed to reveal any epileptiform discharges. Her mental status has improved to some degree today. She does have history of underlying dementia as well. Neurologically she remains intact. She denies any headache or focal weakness. We will continue close neurological follow-up for the patient. She is being treated for wound healing involving her left heel. She has history of underlying insulin-dependent diabetes mellitus. We recommend tight control of her blood sugars. She has undergone some debridement. She has a bandage in place but states her left foot does pain her. Patient is being followed by orthopedic surgery for recent history of left hip hemiarthroplasty that was done back on 07/10/2017. Orthopedic surgery is recommending weightbearing as tolerated with a walker and physical therapy. Patient has had no further episodes of seizure-like activity. As noted her EEG failed to reveal any epileptiform discharges. Orthopedics is following the patient for her left hip pain. She continues to show evidence of underlying dementia and is a very poor historian. Her left heel ulcer is slowly being treated and show some signs of improvement. We'll await further recommendations from infectious disease. Plans are for consideration for returning the patient to retirement at time of discharge. Unfortunately last night the patient developed severe hypotension. She was given IV fluid resuscitation but this did not help. She was transferred to the intensive care unit for further evaluation and treatment. She was started on Levophed to maintain her blood pressure. She is currently on 16 mics of Levophed. She was subsequently weaned off of Levophed and her pressure has now stabilized. She seems to be back to baseline level of function in the intensive care unit at this time. Most likely this patient developed some degree of dehydration producing her hypotensive episode. We will continue to follow her progress closely with multiple other specialists. She does seem to be more appropriate this afternoon and is following some simple commands. Patient is more awake and alert today. She has left foot pressure ulcer with osteomyelitis which is being treated by infectious disease. She is currently being treated with antibiotics which include vancomycin and Zosyn. She is afebrile today. She does have underlying history of dementia. We will continue close neurological follow-up the patient during this admission. Objective - Vital Signs Vital signs: Vital Signs Temp 98.2 F 10/11/17 21:10 Pulse 79 10/11/17 21:10 Resp 17 10/11/17 21:10 BP 113/64 10/11/17 21:10 Pulse Ox 95 10/11/17 21:10 Intake & Output 10/11/17 10/11/17 10/12/17 06:59 18:59 06:59 Intake Total 493.5 1276.0 Output Total 346 595 Balance 147.5 681.0 Weight 98.4 kg Intake: IV 193.5 616.0 0.9 90 Magnesium Sulfate-D5w Pmx 200 1 gm In Dextrose/Water 1 100ml.bag @ 100 mls/hr IVPB Q1H [facility] Rx#: [id number] Piperacillin-Tazobactam 3 37.5 50.0 .375 gm In Dextrose/Water 1 50ml.bag @ 12.5 mls/hr IVPB Q8HR [facility] Rx#: [id number] Sodium Chloride 0.9% 1, 30 110 000 ml @ 50 mls/hr IV . Q20H [facility] Rx#:[id number] Vancomycin 1,500 mg In 250 Sodium Chloride 0.9% 250 ml @ 125 mls/hr IVPB Q16H [facility] Rx#:[id number] pressure bag 36 6 Oral 300 660 Output: Urine 346 595 Other: Voiding Method Indwelling Catheter Indwelling Catheter # Voids 1 # Bowel Movements 1 1 ABP, PAP, CO, CI - Last Documented Arterial Blood Pressure 114/50 - Exam Physical Examination: PHYSICAL EXAMINATION: Patient is resting comfortably in bed. Patient examined in the intensive care unit today and seems to be appropriate for her age. VITAL SIGNS: Blood pressure is [114/64]. Heart rate is [79]. Respiration is [17] . Temperature is [98.7]. HEENT: Head is atraumatic, neck is supple, there were no carotid bruits. CHEST: Lungs are clear to auscultation and percussion. CARDIAC: S1, S2 normal rate and rhythm. There is no murmur. ABDOMEN: Soft and nontender. Bowel sounds are present. EXTREMITIES: There is no pedal edema. Peripheral pulses are present. Neurological examination: Patient neurological exam is unchanged from yesterday. - Labs CBC & Chem 7: 10/11/17 07:40 10/11/17 07:40 Labs: Abnormal Lab Results - Last 24 Hours (Table) 10/11/17 10/11/17 10/11/17 Range/Units 07:40 07:40 07:49 Hgb 11.1 L (11.4-16.0) gm/dL Glucose 178 H (74-99) mg/dL POC Glucose (mg/dL) 197 H (75-99) mg/dL 10/11/17 10/11/17 10/11/17 Range/Units 12:17 17:47 21:25 Hgb (11.4-16.0) gm/dL Glucose (74-99) mg/dL POC Glucose (mg/dL) 182 H 113 H 199 H (75-99) mg/dL Microbiology - Last 24 Hours (Table) 10/10/17 15:45 Blood Culture - Preliminary Blood No Growth after 24 hours Assessment and Plan (1) Syncope and collapse Current Visit: Yes Status: Acute Code(s): R55 - SYNCOPE AND COLLAPSE SNOMED Code(s): 206368221 (2) Dementia Current Visit: Yes Status: Acute Code(s): F03.90 - UNSPECIFIED DEMENTIA WITHOUT BEHAVIORAL DISTURBANCE SNOMED Code(s): 46565744 (3) Left hip pain Current Visit: Yes Status: Acute Code(s): M25.552 - PAIN IN LEFT HIP SNOMED Code(s): 17630215 (4) Status post hip hemiarthroplasty Current Visit: No Status: Acute Code(s): Z96.649 - PRESENCE OF UNSPECIFIED ARTIFICIAL HIP JOINT SNOMED Code(s): 486361230 Plan: This patient is a 77-year-old female who recently underwent left hip hemiarthroplasty on 07/10/2017. She is residing in a retirement and has been having increasing difficulty to ambulate as well as possible syncopal episode. She had a event yesterday morning suggesting possibility of seizure and a code stroke was initiated. She did not have any evidence for acute stroke and did not require any further intervention. Today she seems to be back to baseline level of function terms of her mental status. She underwent routine EEG yesterday which failed to reveal any epileptiform discharges. She is undergoing debridement of her left heel. Her mental status has shown improvement today. Patient developed some degree of hypotension yesterday evening and was given some fluid challenges with not much response. She was transferred into the intensive care unit this morning and seems to be doing much better now in the ICU. She has been taken off of Levophed and her blood pressure is stabilized. She has had no further episodes of seizure-like activity since yesterday. As noted her EEG failed to reveal any epileptiform abnormalities. Patient is awaiting return to her retirement possibly early this week. There is been no significant improvement in her overall neurological status. She does have history of underlying dementia. She is awaiting discharge back to the retirement when she is medically stable. We will continue close neurological follow-up for the patient during this admission. Patient does seem to be more awake and alert today and is following simple commands. She is being treated for osteomyelitis involving the left foot. Infectious disease has her covered with appropriate antibiotics. Her overall prognosis at this time remains very guarded. We will continue to follow her progress closely in the intensive care unit. As noted her overall prognosis remains guarded.
[2017-10-12] MEDS: PIPERACILLIN-TAZOBACTAM 3.375 GM in DEXTROSE/WATER 1 50ML.BAG IVPB SCH ×4 (00:47→23:19)
[2017-10-12] MEDS: VANCOMYCIN 1,250 MG in SODIUM CHLORIDE 0.9% 250 ML IVPB SCH ×2 (04:47→23:11)
[2017-10-12 07:09] LABS: Glucose,Whole Blood 114 mg/dL (75-99)
[2017-10-12] MEDS: IPRATROPIUM-ALBUTEROL 3 ML NEB INHALATION SCH ×3 (07:16→20:05)
[2017-10-12] MEDS: BUDESONIDE 0.5 MG/2 ML NEBU INHALATION SCH ×2 (07:17→20:05)
[2017-10-12 07:19] LABS: Basophils % (A) 1 %; Eosinophils # (A) 0.5 k/uL (0-0.7); Eosinophils % (A) 6 %; HCT 33.6 % (34.0-46.0); HGB 10.7 gm/dL (11.4-16.0); Hypochromasia Slight; Lymphocytes # (A) 1.9 k/uL (1.0-4.8); Lymphocytes % (A) 23 %; MCH 28.4 pg (25.0-35.0); MCHC 31.7 g/dL (31.0-37.0); MCV 89.7 fL (80.0-100.0); Monocytes # (A) 0.7 k/uL (0-1.0); Monocytes % (A) 8 %; Neutrophils # (A) 5.1 k/uL (1.3-7.7); Neutrophils % (A) 61 %; Platelet Count 215 k/uL (150-450); RBC 3.75 m/uL (3.80-5.40); RDW 14.8 % (11.5-15.5); WBC 8.4 k/uL (3.8-10.6)
[2017-10-12 07:41] LABS: Calcium 8.7 mg/dL (8.4-10.2); Phosphorus 4.4 mg/dL (2.5-4.5); Potassium 4.4 mmol/L (3.5-5.1)
[2017-10-12] MEDS: INSULIN ASPART 100 UNIT/ML 1 ML 10 ML VIAL SQ SCH ×4 (07:43→23:01)
[2017-10-12] MEDS: metFORMIN 500 MG TAB PO SCH ×2 (08:07→22:54)
[2017-10-12] MEDS: METOPROLOL SUCCINATE (ER) 25 MG TAB.ER.24H PO SCH (08:07)
[2017-10-12] MEDS: GABAPENTIN 100 MG CAP PO SCH ×3 (08:07→22:55)
[2017-10-12] MEDS: ATORVASTATIN 20 MG TAB PO SCH (08:07)
[2017-10-12] MEDS: SPIRONOLACTONE 25 MG TAB PO SCH (08:07)
[2017-10-12] MEDS: MEMANTINE 10 MG TAB PO SCH ×2 (08:08→22:55)
[2017-10-12] MEDS: amLODIPine 5 MG TAB PO SCH (08:08)
[2017-10-12] MEDS: MULTIVITAMINS, THERA 1 EACH TAB PO SCH (08:08)
[2017-10-12] MEDS: APIXABAN 5 MG TAB PO SCH ×2 (08:08→22:55)
[2017-10-12] MEDS: PANTOPRAZOLE 40 MG TABLET PO SCH (08:08)
[2017-10-12] MEDS: ESCITALOPRAM 5 MG TAB PO SCH (08:11)
--- NOTE | 2017-10-12 10:04 | P.PN ---
Subjective Progress Note Date: 10/12/17 HPI: This is a 77-year-old female patient being seen examined and evaluated today for consultation. This patient originally was admitted to the hospital for evaluation of possible syncope and inability to ambulate. The patient is also known to have a left heel infected pressure ulcer which was positive for MRSA and multiple other organisms. Infectious disease was put on consult for that and she has been on IV antibiotics. She also has orthopedics on consult as well and is undergoing a bone scan today to look for any osteomyelitis. She also developed somewhat of a seizure-like activity inpatient, neurology was put on consult and an EEG was performed and was negative for any acute seizures at that time. Apparently the patient had been hemodynamically stable, she had no WBC count and no fevers. Apparently overnight the patient did develop some hypotension. She did receive an IV fluid bolus at that time and she was transferred to the intensive care unit for further evaluation and monitoring. The patient was started on Levophed to maintain her blood pressures and she currently continues on 16 mics at this time. Upon examination she is resting up in bed on 2 L of supplemental oxygen. She appears tired however does answer questions appropriately and is easily arousable. She states she does occasionally have shortness of breath with exertion and activity. She denies any cough or congestion. She has had good urine output. She did receive a 1 time dose of Lasix yesterday. She does occasionally complain of some lower back flank area pain. She has had a decreased appetite. 10/11/17- patient is being seen examined and evaluated today on rounds in the intensive care unit. The patient is currently hemodynamically stable. All of her pressors were weaned off last night. Her current CVP is 9. She did have some marginal urine output overnight however it has improved today. Chest x- ray was reviewed and shows COPD with bilateral atelectasis/infiltrates. She did have a bone scan yesterday which did reveal cellulitis and osteomyelitis of the calcaneus. She does have a good appetite and ate about 75% of her breakfast and is requesting ice cream cups. She is much more alert and awake today. Antibiotics were adjusted yesterday by infectious disease. The patient does not remember most of yesterday, she also has underlying dementia. Case is discussed with the nurse at length. 10/12/17- patient is being seen examined and evaluated today on rounds. She was downgraded from the intensive care unit yesterday. She has been hemodynamically stable. Her blood pressures have been normal. She continues on 2 L of supplemental oxygen via nasal cannula. She is much more alert and awake and conversational today. She does complain of some wound pain and will be getting education for that. She denies any cough or congestion. She is afebrile no further complaints. Labs and reports have been reviewed Objective - Vital Signs Vital signs: Vital Signs Temp 97.4 F L 10/12/17 08:07 Pulse 83 10/12/17 08:07 Resp 18 10/12/17 08:07 BP 115/62 10/12/17 08:07 Pulse Ox 92 L 10/12/17 08:07 Intake & Output 10/11/17 10/12/17 10/12/17 18:59 06:59 18:59 Intake Total 1276.0 560 Output Total 595 1100 Balance 681.0 -540 Intake: IV 616.0 560 Magnesium Sulfate-D5w Pmx 200 1 gm In Dextrose/Water 1 100ml.bag @ 100 mls/hr IVPB Q1H [facility] Rx#: [id number] Piperacillin-Tazobactam 3 50.0 .375 gm In Dextrose/Water 1 50ml.bag @ 12.5 mls/hr IVPB Q8HR [facility] Rx#: [id number] Sodium Chloride 0.9% 1, 110 560 000 ml @ 50 mls/hr IV . Q20H [facility] Rx#:[id number] Vancomycin 1,500 mg In 250 Sodium Chloride 0.9% 250 ml @ 125 mls/hr IVPB Q16H [facility] Rx#:[id number] pressure bag 6 Oral 660 Output: Urine 595 1100 Other: Voiding Method Indwelling Catheter Indwelling Catheter # Voids 1 # Bowel Movements 1 ABP, PAP, CO, CI - Last Documented Arterial Blood Pressure 114/50 - Exam GENERAL EXAM: More awake and Alert, intermittent confusion with a baseline of dementia, comfortable in no apparent distress. HEAD: Normocephalic. EYES: Normal reaction of pupils, equal size. NOSE: Clear with pink turbinates. THROAT: No erythema or exudates. NECK: No masses, no JVD. CHEST: No chest wall deformity. LUNGS: Lungs noted to be diminished throughout with some faint expiratory wheezing. improving CVS: S1 and S2 normal with no audible mumurs, regular rhythm. ABDOMEN: No hepatosplenomegaly, normal bowel sounds, no guarding or rigidity. EXTREMITIES: No edema noted, pedal pulses palpable. Left lower extremity dressing clean dry and intact CENTRAL NERVOUS SYSTEM: No focal deficits, tone is normal in all 4 extremities. - Labs CBC & Chem 7: 10/12/17 06:37 10/12/17 06:37 Labs: Abnormal Lab Results - Last 24 Hours (Table) 10/11/17 10/11/17 10/11/17 Range/Units 12:17 17:47 21:25 RBC (3.80-5.40) m/uL Hgb (11.4-16.0) gm/dL Hct (34.0-46.0) % Glucose (74-99) mg/dL POC Glucose (mg/dL) 182 H 113 H 199 H (75-99) mg/dL 10/12/17 10/12/17 10/12/17 Range/Units 06:37 06:37 07:08 RBC 3.75 L (3.80-5.40) m/uL Hgb 10.7 L (11.4-16.0) gm/dL Hct 33.6 L (34.0-46.0) % Glucose 101 H (74-99) mg/dL POC Glucose (mg/dL) 114 H (75-99) mg/dL Microbiology - Last 24 Hours (Table) 10/10/17 15:45 Blood Culture - Preliminary Blood No Growth after 24 hours Assessment and Plan Assessment: Assessment Shock of unclear etiology sepsis versus other Right middle lobe infiltrate possible pneumonia Hypotension Acute hypoxic respiratory failure requiring supplemental oxygen Left heel wound Left hip pain, Generalized weakness and medical debility Hypomagnesemia Underlying dementia Osteomyelitis of the left foot Plan Medications have been reviewed and will be continued as ordered. Patient has been hemodynamically stable Echocardiogram EF 45-50% Infectious disease on consult and adjusting antibiotics Continue to monitor and replace electrolytes per protocol Bone scan reviewed Continue with pulmonary hygiene, coughing and deep breathing exercises, and supportive care. Supplemental oxygen to maintain oxygen saturations of 92% or better. Initiate and encourage incentive spirometer Wound care Continue nebulizer treatments. GI and DVT prophylaxis. Protonix and Eliquis Increase activity as tolerated and per ortho recommendations, PT and OT also We will continue to monitor labs/results and adjust treatment as necessary. Further recommendations pending. I performed an examination of the patient and discussed their management with the nurse practitioner. I have reviewed the nurse practitioner's note and agree with the documented findings and plan of care.
[2017-10-12 11:29] LABS: Glucose,Whole Blood 185 mg/dL (75-99)
[2017-10-12] MEDS: ACETAMINOPHEN TAB 325 MG TAB PO PRN (12:43)
--- NOTE | 2017-10-12 15:48 | PN ---
PROGRESS NOTE DATE OF SERVICE: 10/12/2017. REASON FOR FOLLOW UP: Infected left heel pressure ulcer with underlying osteomyelitis. INTERVAL HISTORY: The patient is currently afebrile. She is breathing comfortably. Denies any chest pain. No abdominal pain or any worsening pain in the left heel area. EXAMINATION: Blood pressure 115/62 with a pulse of 83, temperature 97.4. She is 92% on 2 L nasal cannula. General description is an elderly female lying in bed in no distress. Respiratory system unlabored breathing. Clear to auscultation anteriorly. Heart S1, S2. Regular rate and rhythm. Abdomen is soft, no tenderness. LABORATORY DATA: Hemoglobin is 10.1, white count 8.4. BUN of 14, creatinine 0.90. DIAGNOSTIC IMPRESSION AND PLAN: Patient with left heel infected pressure ulcer, stage IV with underlying osteomyelitis. Culture with MRSA and Proteus mirabilis. She is currently on Zosyn and Vanco, on vancomycin pharmacy to dose target of 15 for a total of 6 along with Rocephin 2 g daily for which the PICC line will be placed. Local wound care with Santyl followed by monitor. Continue supportive care. MMODL / IJN: [id number] /
[2017-10-12] MEDS: traMADol 50 MG TAB PO PRN ×2 (15:54→23:18)
[2017-10-12] MEDS: COLLAGENASE 250 UNIT/GM OINTMENT 30 GM TUBE TOPICAL SCH (15:57)
[2017-10-12 16:47] LABS: Glucose,Whole Blood 133 mg/dL (75-99)
--- NOTE | 2017-10-12 20:54 | PN ---
PROGRESS NOTE SUBJECTIVE: This is a white female, single, who ICU yesterday. She is greatly improved. Her oxygenation is improving. Her blood pressure is improving without norepinephrine. Temp 97.4, pulse 83, respirations 18, blood pressure 110 to 115 over 60s. O2 92%. Cardiovascular S1, S2. Lungs transmitted upper airway sounds. GI soft. Hematology negative Homans. Ophthalmologic pupils equal, round, and reactive to light and accommodation. White count 8.4, hemoglobin 10.7. ASSESSMENT: 1. unclear etiology, right middle lobe infiltrate. 2. Possible pneumonia. 3. Acute hypoxemic respiratory failure. 4. Hypertension. 5. MRSA to the left heel wound with MRSA. 6. Hypomagnesemia. 7. Dementia. 8. Osteomyelitis, left foot. Continue on Protonix, Eliquis. Echo was reviewed. Continue PT/OT. Long-term antibiotics per Dr. Tracy. Not sure she if is going to go to a fdc or she has a stage IV pressure ulcer of the left heel. She has Proteus mirabilis and MRSA in it. She is on Vanco and Zosyn. PICC line placement. Long-term IV antibiotics will be needed. Local wound with Santyl. MMODL / IJN: [id number] /
[2017-10-12 22:34] LABS: Glucose,Whole Blood 186 mg/dL (75-99)
[2017-10-12 22:55] LABS: Glucose,Whole Blood 198 mg/dL (75-99)
[2017-10-12] MEDS: MELATONIN 3 MG TABLET PO SCH (22:55)
[2017-10-12] MEDS: DONEPEZIL 10 MG TAB PO SCH (22:55)
[2017-10-12] MEDS: SODIUM CHLORIDE 0.9% 1,000 ML IV SCH (23:01)
[2017-10-13 07:08] LABS: Glucose,Whole Blood 133 mg/dL (75-99)
[2017-10-13] MEDS: BUDESONIDE 0.5 MG/2 ML NEBU INHALATION SCH ×2 (07:55→20:43)
[2017-10-13] MEDS: IPRATROPIUM-ALBUTEROL 3 ML NEB INHALATION SCH ×3 (07:55→20:43)
[2017-10-13 08:15] VITALS: BMI 29.4
[2017-10-13 08:33] LABS: Calcium 8.5 mg/dL (8.4-10.2); Potassium 4.6 mmol/L (3.5-5.1)
[2017-10-13] MEDS: ATORVASTATIN 20 MG TAB PO SCH (08:51)
[2017-10-13] MEDS: PANTOPRAZOLE 40 MG TABLET PO SCH (08:51)
[2017-10-13] MEDS: metFORMIN 500 MG TAB PO SCH ×2 (08:51→18:12)
[2017-10-13] MEDS: METOPROLOL SUCCINATE (ER) 25 MG TAB.ER.24H PO SCH (08:51)
[2017-10-13] MEDS: GABAPENTIN 100 MG CAP PO SCH ×3 (08:51→23:11)
[2017-10-13] MEDS: PIPERACILLIN-TAZOBACTAM 3.375 GM in DEXTROSE/WATER 1 50ML.BAG IVPB SCH ×3 (08:52→23:12)
[2017-10-13] MEDS: amLODIPine 5 MG TAB PO SCH (08:52)
[2017-10-13] MEDS: INSULIN ASPART 100 UNIT/ML 1 ML 10 ML VIAL SQ SCH ×4 (08:52→23:14)
[2017-10-13] MEDS: MEMANTINE 10 MG TAB PO SCH ×2 (09:06→23:11)
[2017-10-13] MEDS: SPIRONOLACTONE 25 MG TAB PO SCH (09:06)
[2017-10-13] MEDS: ESCITALOPRAM 5 MG TAB PO SCH (09:26)
--- NOTE | 2017-10-13 09:40 | P.PN ---
Subjective Progress Note Date: 10/13/17 HPI: This is a 77-year-old female patient being seen examined and evaluated today for consultation. This patient originally was admitted to the hospital for evaluation of possible syncope and inability to ambulate. The patient is also known to have a left heel infected pressure ulcer which was positive for MRSA and multiple other organisms. Infectious disease was put on consult for that and she has been on IV antibiotics. She also has orthopedics on consult as well and is undergoing a bone scan today to look for any osteomyelitis. She also developed somewhat of a seizure-like activity inpatient, neurology was put on consult and an EEG was performed and was negative for any acute seizures at that time. Apparently the patient had been hemodynamically stable, she had no WBC count and no fevers. Apparently overnight the patient did develop some hypotension. She did receive an IV fluid bolus at that time and she was transferred to the intensive care unit for further evaluation and monitoring. The patient was started on Levophed to maintain her blood pressures and she currently continues on 16 mics at this time. Upon examination she is resting up in bed on 2 L of supplemental oxygen. She appears tired however does answer questions appropriately and is easily arousable. She states she does occasionally have shortness of breath with exertion and activity. She denies any cough or congestion. She has had good urine output. She did receive a 1 time dose of Lasix yesterday. She does occasionally complain of some lower back flank area pain. She has had a decreased appetite. 10/11/17- patient is being seen examined and evaluated today on rounds in the intensive care unit. The patient is currently hemodynamically stable. All of her pressors were weaned off last night. Her current CVP is 9. She did have some marginal urine output overnight however it has improved today. Chest x- ray was reviewed and shows COPD with bilateral atelectasis/infiltrates. She did have a bone scan yesterday which did reveal cellulitis and osteomyelitis of the calcaneus. She does have a good appetite and ate about 75% of her breakfast and is requesting ice cream cups. She is much more alert and awake today. Antibiotics were adjusted yesterday by infectious disease. The patient does not remember most of yesterday, she also has underlying dementia. Case is discussed with the nurse at length. 10/12/17- patient is being seen examined and evaluated today on rounds. She was downgraded from the intensive care unit yesterday. She has been hemodynamically stable. Her blood pressures have been normal. She continues on 2 L of supplemental oxygen via nasal cannula. She is much more alert and awake and conversational today. She does complain of some wound pain and will be getting education for that. She denies any cough or congestion. She is afebrile no further complaints. Labs and reports have been reviewed 10/13/17- patient is being seen examined and evaluated today on rounds she is resting up in bed eating her breakfast. She continues on 2 L of supplemental oxygen via nasal cannula. Patient will be undergoing a PICC line insertion for long-term antibiotics. She will be going to [facility] upon discharge. Discharge planning underway. All labs and reports have been reviewed. She has been afebrile. Objective - Vital Signs Vital signs: Vital Signs Temp 97.9 F 10/13/17 00:39 Pulse 76 10/13/17 08:10 Resp 17 10/13/17 00:39 BP 120/56 10/13/17 00:39 Pulse Ox 94 L 10/13/17 00:39 Intake & Output 10/12/17 10/13/17 10/13/17 18:59 06:59 18:59 Intake Total 50 561 Output Total 600 Balance 50 -39 Weight 98.4 kg Intake: IV 50 81 Piperacillin-Tazobactam 3 50 .375 gm In Dextrose/Water 1 50ml.bag @ 12.5 mls/hr IVPB Q8HR RACHELLE Rx#: [id number] Sodium Chloride 0.9% 1, 81 000 ml @ 50 mls/hr IV . Q20H RACHELLE Rx#:[id number] Oral 480 Output: Urine 600 Other: Voiding Method Indwelling Catheter Indwelling Catheter ABP, PAP, CO, CI - Last Documented Arterial Blood Pressure 114/50 - Exam GENERAL EXAM: More awake and Alert, intermittent confusion with a baseline of dementia, comfortable in no apparent distress. HEAD: Normocephalic. EYES: Normal reaction of pupils, equal size. NOSE: Clear with pink turbinates. THROAT: No erythema or exudates. NECK: No masses, no JVD. CHEST: No chest wall deformity. LUNGS: Lungs noted to be diminished throughout with some faint expiratory wheezing. improving CVS: S1 and S2 normal with no audible mumurs, regular rhythm. ABDOMEN: No hepatosplenomegaly, normal bowel sounds, no guarding or rigidity. EXTREMITIES: No edema noted, pedal pulses palpable. Left lower extremity dressing clean dry and intact CENTRAL NERVOUS SYSTEM: No focal deficits, tone is normal in all 4 extremities. - Labs CBC & Chem 7: 10/12/17 06:37 10/13/17 07:20 Labs: Abnormal Lab Results - Last 24 Hours (Table) 10/12/17 10/12/17 10/12/17 Range/Units 11:26 16:45 22:32 Glucose (74-99) mg/dL POC Glucose (mg/dL) 185 H 133 H 186 H (75-99) mg/dL 10/12/17 10/13/17 10/13/17 Range/Units 22:53 07:07 07:20 Glucose 120 H (74-99) mg/dL POC Glucose (mg/dL) 198 H 133 H (75-99) mg/dL Microbiology - Last 24 Hours (Table) 10/10/17 15:45 Blood Culture - Preliminary Blood No Growth after 48 hours Assessment and Plan Assessment: Assessment Shock of unclear etiology sepsis versus other Right middle lobe infiltrate possible pneumonia Hypotension Acute hypoxic respiratory failure requiring supplemental oxygen Left heel wound Left hip pain, Generalized weakness and medical debility Hypomagnesemia Underlying dementia Osteomyelitis of the left foot Plan 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 Patient has been hemodynamically stable Echocardiogram EF 45-50% Infectious disease on consult and adjusting antibiotics Continue to monitor and replace electrolytes per protocol Bone scan reviewed Continue with pulmonary hygiene, coughing and deep breathing exercises, and supportive care. Supplemental oxygen to maintain oxygen saturations of 92% or better. Initiate and encourage incentive spirometer Wound care Continue nebulizer treatments. GI and DVT prophylaxis. Protonix and Eliquis Increase activity as tolerated and per ortho recommendations, PT and OT also We will continue to monitor labs/results and adjust treatment as necessary. Further recommendations pending. I performed an examination of the patient and discussed their management with the nurse practitioner. I have reviewed the nurse practitioner's note and agree with the documented findings and plan of care.
[2017-10-13] MEDS: traMADol 50 MG TAB PO PRN ×3 (09:48→23:11)
--- NOTE | 2017-10-13 09:52 | P.PN ---
Subjective Progress Note Date: 10/12/17 This patient is a 77-year-old right-handed white female who is status post recent left hip hemiarthroplasty on 07/10/2017. She was admitted to hospital for evaluation of syncope and inability to ambulate. Yesterday she developed condenser cleaner a possible seizure like activity and a code stroke was called. The patient did not qualify for any stroke intervention. She was sent for routine EEG which was reviewed and failed to reveal any epileptiform discharges. Her mental status has improved to some degree today. She does have history of underlying dementia as well. Neurologically she remains intact. She denies any headache or focal weakness. We will continue close neurological follow-up for the patient. She is being treated for wound healing involving her left heel. She has history of underlying insulin-dependent diabetes mellitus. We recommend tight control of her blood sugars. She has undergone some debridement. She has a bandage in place but states her left foot does pain her. Patient is being followed by orthopedic surgery for recent history of left hip hemiarthroplasty that was done back on 07/10/2017. Orthopedic surgery is recommending weightbearing as tolerated with a walker and physical therapy. Patient has had no further episodes of seizure-like activity. As noted her EEG failed to reveal any epileptiform discharges. Orthopedics is following the patient for her left hip pain. She continues to show evidence of underlying dementia and is a very poor historian. Her left heel ulcer is slowly being treated and show some signs of improvement. We'll await further recommendations from infectious disease. Plans are for consideration for returning the patient to [facility] at time of discharge. Unfortunately last night the patient developed severe hypotension. She was given IV fluid resuscitation but this did not help. She was transferred to the intensive care unit for further evaluation and treatment. She was started on Levophed to maintain her blood pressure. She is currently on 16 mics of Levophed. She was subsequently weaned off of Levophed and her pressure has now stabilized. She seems to be back to baseline level of function in the intensive care unit at this time. Most likely this patient developed some degree of dehydration producing her hypotensive episode. We will continue to follow her progress closely with multiple other specialists. She does seem to be more appropriate this afternoon and is following some simple commands. Patient is more awake and alert today. She has left foot pressure ulcer with osteomyelitis which is being treated by infectious disease. She is currently being treated with antibiotics which include vancomycin and Zosyn. She is afebrile today. She does have underlying history of dementia. We will continue close neurological follow-up the patient during this admission. Objective - Vital Signs Vital signs: Vital Signs Temp 97.4 F L 10/12/17 08:07 Pulse 83 10/12/17 08:07 Resp 18 10/12/17 08:07 BP 115/62 10/12/17 08:07 Pulse Ox 92 L 10/12/17 08:07 Intake & Output 10/11/17 10/12/17 10/12/17 18:59 06:59 18:59 Intake Total 1276.0 560 Output Total 595 1100 Balance 681.0 -540 Intake: IV 616.0 560 Magnesium Sulfate-D5w Pmx 200 1 gm In Dextrose/Water 1 100ml.bag @ 100 mls/hr IVPB Q1H RACHELLE Rx#: [id number] Piperacillin-Tazobactam 3 50.0 .375 gm In Dextrose/Water 1 50ml.bag @ 12.5 mls/hr IVPB Q8HR RACHELLE Rx#: [id number] Sodium Chloride 0.9% 1, 110 560 000 ml @ 50 mls/hr IV . Q20H RACHELLE Rx#:[id number] Vancomycin 1,500 mg In 250 Sodium Chloride 0.9% 250 ml @ 125 mls/hr IVPB Q16H RACHELLE Rx#:[id number] pressure bag 6 Oral 660 Output: Urine 595 1100 Other: Voiding Method Indwelling Catheter Indwelling Catheter Indwelling Catheter # Voids 1 # Bowel Movements 1 ABP, PAP, CO, CI - Last Documented Arterial Blood Pressure 114/50 - Exam Physical Examination: PHYSICAL EXAMINATION: Patient is resting comfortably in bed. Patient examined in the intensive care unit today and seems to be appropriate for her age. VITAL SIGNS: Blood pressure is [114/64]. Heart rate is [79]. Respiration is [17] . Temperature is [98.7]. HEENT: Head is atraumatic, neck is supple, there were no carotid bruits. CHEST: Lungs are clear to auscultation and percussion. CARDIAC: S1, S2 normal rate and rhythm. There is no murmur. ABDOMEN: Soft and nontender. Bowel sounds are present. EXTREMITIES: There is no pedal edema. Peripheral pulses are present. Neurological examination: Patient neurological exam is unchanged from yesterday. - Labs CBC & Chem 7: 10/12/17 06:37 10/13/17 07:20 Labs: Abnormal Lab Results - Last 24 Hours (Table) 10/11/17 10/11/17 10/12/17 Range/Units 17:47 21:25 06:37 RBC 3.75 L (3.80-5.40) m/uL Hgb 10.7 L (11.4-16.0) gm/dL Hct 33.6 L (34.0-46.0) % Glucose (74-99) mg/dL POC Glucose (mg/dL) 113 H 199 H (75-99) mg/dL 10/12/17 10/12/17 10/12/17 Range/Units 06:37 07:08 11:26 RBC (3.80-5.40) m/uL Hgb (11.4-16.0) gm/dL Hct (34.0-46.0) % Glucose 101 H (74-99) mg/dL POC Glucose (mg/dL) 114 H 185 H (75-99) mg/dL Microbiology - Last 24 Hours (Table) 10/10/17 15:45 Blood Culture - Preliminary Blood No Growth after 24 hours Assessment and Plan (1) Syncope and collapse Current Visit: Yes Status: Acute Code(s): R55 - SYNCOPE AND COLLAPSE SNOMED Code(s): 122682237 (2) Dementia Current Visit: Yes Status: Acute Code(s): F03.90 - UNSPECIFIED DEMENTIA WITHOUT BEHAVIORAL DISTURBANCE SNOMED Code(s): 28331392 (3) Left hip pain Current Visit: Yes Status: Acute Code(s): M25.552 - PAIN IN LEFT HIP SNOMED Code(s): 21029950 (4) Status post hip hemiarthroplasty Current Visit: No Status: Acute Code(s): Z96.649 - PRESENCE OF UNSPECIFIED ARTIFICIAL HIP JOINT SNOMED Code(s): 565327829 Plan: This patient is a 77-year-old female who recently underwent left hip hemiarthroplasty on 07/10/2017. She is residing in a [facility] and has been having increasing difficulty to ambulate as well as possible syncopal episode. She had a event yesterday morning suggesting possibility of seizure and a code stroke was initiated. She did not have any evidence for acute stroke and did not require any further intervention. Today she seems to be back to baseline level of function terms of her mental status. She underwent routine EEG yesterday which failed to reveal any epileptiform discharges. She is undergoing debridement of her left heel. Her mental status has shown improvement today. Patient developed some degree of hypotension yesterday evening and was given some fluid challenges with not much response. She was transferred into the intensive care unit this morning and seems to be doing much better now in the ICU. She has been taken off of Levophed and her blood pressure is stabilized. She has had no further episodes of seizure-like activity since yesterday. As noted her EEG failed to reveal any epileptiform abnormalities. Patient is awaiting return to her [facility] possibly early this week. There is been no significant improvement in her overall neurological status. She does have history of underlying dementia. She is awaiting discharge back to the [facility] when she is medically stable. We will continue close neurological follow-up for the patient during this admission. Patient does seem to be more awake and alert today and is following simple commands. She is being treated for osteomyelitis involving the left foot. Infectious disease has her covered with appropriate antibiotics. Her overall prognosis at this time remains very guarded. Patient continues to do quite well overall in terms of her mental status. We will continue to follow along with multiple specialists were seeing her today. As noted her overall prognosis remains guarded.
[2017-10-13] MEDS: APIXABAN 5 MG TAB PO SCH (12:34)
[2017-10-13] MEDS: MULTIVITAMINS, THERA 1 EACH TAB PO SCH (12:37)
[2017-10-13 12:42] LABS: Glucose,Whole Blood 169 mg/dL (75-99)
[2017-10-13] MEDS: VANCOMYCIN 1,250 MG in SODIUM CHLORIDE 0.9% 250 ML IVPB SCH (14:16)
--- NOTE | 2017-10-13 15:36 | PN ---
PROGRESS NOTE DATE OF SERVICE: 10/13/2017. REASON FOR FOLLOWUP: Left heel infected pressure ulcer with secondary osteomyelitis. INTERVAL HISTORY: The patient is currently afebrile. She is breathing comfortably. He denies having any chest pain or any cough. No abdominal pain or any pain to the left heel area. EXAMINATION: Blood pressure is 117/62, pulse of 72, temperature of 98.3. She is 93% on room air. General description is an elderly female lying in bed in no distress. Respiratory system: Unlabored breathing, clear to auscultation anteriorly. Heart S1, S2. Regular rate and rhythm. Abdomen soft. No tenderness. Left heel is currently dressed up. No obvious drainage on the dressing. LABS: BUN of 12, creatinine 0.95. DIAGNOSTIC IMPRESSION AND PLAN: Patient with left heel infected pressure ulcer and underlying osteomyelitis. Waiting for a PICC line placement and transition her to outpatient antibiotic therapy in the form of vancomycin, pharmacy to dose and Rocephin. Continue local wound care with Santyl. Continue supportive care. MMODL / IJN: [id number] /
--- NOTE | 2017-10-13 15:58 | CDI ---
Last Revision, January 2017 Documentation Clarification Form Date: 10/13/17 From: Katerin Velazquez RN, CCDS Admit Date: 10/03/2017 8:49:00 PM Patient Name: Wanda Corbett Visit Number: [id number] Discharge Date: ATTENTION: The Clinical Documentation Specialists (CDI) and [facility] Coding Staff appreciate your assistance in clarifying documentation. Please respond to the clarification below the line at the bottom and electronically sign. The CDI & [facility] Coding staff will review the response and follow-up if needed. Please note: Queries are made part of the Legal Health Record. If you have any questions, please contact the author of this message via ITS. Libra Renee MD Osteomyelitis has been documented in your ongoing progress notes beginning . History/Risk Factors: Hypertension, Diabetes Mellitus, Alzheimers, Atrial Fibrillation, Clinical Indicators: Currently being treated for wound left heel. She is a diabetic. Labs: WBC 11. BUN 15, CR 0.80 Bone scan left heel 10/10/17: Findings are compatible to cellulitis and osteomyelitis of the calcaneus Treatment: Blood cultures (repeat) Zosyn IV Vancomycin IV Debridement left heel In your professional opinion, please specify the following for the left heel infected pressure ulcer, stage IV : osteomyelitis Acuity Acute Chronic Subacute Unable to Determine Cause: Viral (specify organism if know) Bacterial (specify organism if know): Other (please specify): Unable to Determine Associated condition (if applicable): Diabetic mellitus Major osseous defect (specify site) Other (please specify): Please continue to document in your progress notes and discharge summary in order to capture severity of illness and risk of mortality. Include clinical findings that support your diagnosis. MTDD
[2017-10-13 16:58] LABS: Glucose,Whole Blood 175 mg/dL (75-99)
[2017-10-13] MEDS: COLLAGENASE 250 UNIT/GM OINTMENT 30 GM TUBE TOPICAL SCH (17:54)
[2017-10-13] MEDS: SODIUM CHLORIDE 0.9% 1,000 ML IV SCH ×2 (17:54→23:13)
--- NOTE | 2017-10-13 18:16 | PN ---
PROGRESS NOTE SUBJECTIVE: A 77-year-old white female with osteomyelitis of the left heel with MRSA, status post debridement on IV vancomycin at this time and Zosyn, awaiting finalized cultures and a PICC line to be placed. She will not be able to get a PICC line until Monday because she has been on Eliquis and they do not do that on the weekend. So she will continue with current treatments until PICC line can be placed on Monday. , Family wants her to have IV antibiotics back at [facility]. We will see if the insurance can pass that, get that approved for the [facility] with IV antibiotics at her place of living with the home nurse and family. Otherwise, she may need inpatient care. MMODL / IJN: [id number] /
[2017-10-13 20:21] LABS: Glucose,Whole Blood 95 mg/dL (75-99)
[2017-10-13] MEDS: DONEPEZIL 10 MG TAB PO SCH (23:10)
[2017-10-13] MEDS: MELATONIN 3 MG TABLET PO SCH (23:11)
[2017-10-13 23:13] LABS: Appearance,Urine Cloudy (Clear); Bilirubin,Urine Negative (Negative); Blood,Urine Small (Negative); Budding Yeast,Urine Few /hpf; Color,Urine Yellow; Glucose,Urine (UA) Negative (Negative); Hyphae Yeast, Urine Rare /hpf; Ketones,Urine Negative (Negative); Leukocyte Esterase,Urine Large (Negative); Mucus,Urine Occasional /hpf; Nitrite,Urine Negative (Negative); PH, Urine 5.5 (5.0-8.0); Protein,Urine Negative (Negative); RBC,Urine 12 /hpf (0-5); Specific Gravity,Urine 1.013 (1.001-1.035); Squamous Epithelial Cell,Urine 6 /hpf (0-4); Urobilinogen,Urine <2.0 mg/dL (<2.0)
[2017-10-13] MEDS: HEPARIN SODIUM,PORCINE 5,000 UNIT/ML 1 ML VIAL SQ SCH (23:18)
[2017-10-14 06:55] LABS: Glucose,Whole Blood 113 mg/dL (75-99)
[2017-10-14] MEDS: INSULIN ASPART 100 UNIT/ML 1 ML 10 ML VIAL SQ SCH ×4 (07:46→20:28)
--- NOTE | 2017-10-14 07:51 | P.PN ---
Subjective Progress Note Date: 10/13/17 This patient is a 77-year-old right-handed white female who is status post recent left hip hemiarthroplasty on 07/10/2017. She was admitted to hospital for evaluation of syncope and inability to ambulate. 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 The patient did not qualify for any stroke intervention. She was sent for routine EEG which was reviewed and failed to reveal any epileptiform discharges. Her mental status has improved to some degree today. She does have history of underlying dementia as well. Neurologically she remains intact. She denies any headache or focal weakness. We will continue close neurological follow-up for the patient. She is being treated for wound healing involving her left heel. She has history of underlying insulin-dependent diabetes mellitus. We recommend tight control of her blood sugars. She has undergone some debridement. She has a bandage in place but states her left foot does pain her. Patient is being followed by orthopedic surgery for recent history of left hip hemiarthroplasty that was done back on 07/10/2017. Orthopedic surgery is recommending weightbearing as tolerated with a walker and physical therapy. Patient has had no further episodes of seizure-like activity. As noted her EEG failed to reveal any epileptiform discharges. Orthopedics is following the patient for her left hip pain. She continues to show evidence of underlying dementia and is a very poor historian. Her left heel ulcer is slowly being treated and show some signs of improvement. We'll await further recommendations from infectious disease. Plans are for consideration for returning the patient to [facility] at time of discharge. Unfortunately last night the patient developed severe hypotension. She was given IV fluid resuscitation but this did not help. She was transferred to the intensive care unit for further evaluation and treatment. She was started on Levophed to maintain her blood pressure. She is currently on 16 mics of Levophed. She was subsequently weaned off of Levophed and her pressure has now stabilized. She seems to be back to baseline level of function in the intensive care unit at this time. Most likely this patient developed some degree of dehydration producing her hypotensive episode. We will continue to follow her progress closely with multiple other specialists. She does seem to be more appropriate this afternoon and is following some simple commands. Patient is more awake and alert today. She has left foot pressure ulcer with osteomyelitis which is being treated by infectious disease. She is currently being treated with antibiotics which include vancomycin and Zosyn. She is afebrile today. She does have underlying history of dementia. We will continue close neurological follow-up the patient during this admission. Objective - Vital Signs Vital signs: Vital Signs Temp 97.9 F 10/13/17 00:39 Pulse 76 10/13/17 08:10 Resp 17 10/13/17 00:39 BP 120/56 10/13/17 00:39 Pulse Ox 94 L 10/13/17 00:39 Intake & Output 10/12/17 10/13/17 10/13/17 18:59 06:59 18:59 Intake Total 50 561 Output Total 600 Balance 50 -39 Weight 98.4 kg Intake: IV 50 81 Piperacillin-Tazobactam 3 50 .375 gm In Dextrose/Water 1 50ml.bag @ 12.5 mls/hr IVPB Q8HR [facility] Rx#: [id number] Sodium Chloride 0.9% 1, 81 000 ml @ 50 mls/hr IV . Q20H R[facility] Rx#:[id number] Oral 480 Output: Urine 600 Other: Voiding Method Indwelling Catheter Indwelling Catheter ABP, PAP, CO, CI - Last Documented Arterial Blood Pressure 114/50 - Exam Physical Examination: PHYSICAL EXAMINATION: Patient is resting comfortably in bed. Patient examined in the intensive care unit today and seems to be appropriate for her age. VITAL SIGNS: Blood pressure is [116/64]. Heart rate is [72]. Respiration is [18] . Temperature is [97.7]. HEENT: Head is atraumatic, neck is supple, there were no carotid bruits. CHEST: Lungs are clear to auscultation and percussion. CARDIAC: S1, S2 normal rate and rhythm. There is no murmur. ABDOMEN: Soft and nontender. Bowel sounds are present. EXTREMITIES: There is no pedal edema. Peripheral pulses are present. Neurological examination: Patient neurological exam is unchanged from yesterday. - Labs CBC & Chem 7: 10/12/17 06:37 10/13/17 07:20 Labs: Abnormal Lab Results - Last 24 Hours (Table) 10/12/17 10/12/17 10/12/17 Range/Units 11:26 16:45 22:32 Glucose (74-99) mg/dL POC Glucose (mg/dL) 185 H 133 H 186 H (75-99) mg/dL 10/12/17 10/13/17 10/13/17 Range/Units 22:53 07:07 07:20 Glucose 120 H (74-99) mg/dL POC Glucose (mg/dL) 198 H 133 H (75-99) mg/dL Microbiology - Last 24 Hours (Table) 10/10/17 15:45 Blood Culture - Preliminary Blood No Growth after 48 hours Assessment and Plan (1) Syncope and collapse Current Visit: Yes Status: Acute Code(s): R55 - SYNCOPE AND COLLAPSE SNOMED Code(s): 189778070 (2) Dementia Current Visit: Yes Status: Acute Code(s): F03.90 - UNSPECIFIED DEMENTIA WITHOUT BEHAVIORAL DISTURBANCE SNOMED Code(s): 88473472 (3) Left hip pain Current Visit: Yes Status: Acute Code(s): M25.552 - PAIN IN LEFT HIP SNOMED Code(s): 04219478 (4) Status post hip hemiarthroplasty Current Visit: No Status: Acute Code(s): Z96.649 - PRESENCE OF UNSPECIFIED ARTIFICIAL HIP JOINT SNOMED Code(s): 711921202 Plan: This patient is a 77-year-old female who recently underwent left hip hemiarthroplasty on 07/10/2017. She is residing in a [facility] and has been having increasing difficulty to ambulate as well as possible syncopal episode. She had a event yesterday morning suggesting possibility of seizure and a code stroke was initiated. She did not have any evidence for acute stroke and did not require any further intervention. Today she seems to be back to baseline level of function terms of her mental status. She underwent routine EEG yesterday which failed to reveal any epileptiform discharges. She is undergoing debridement of her left heel. Her mental status has shown improvement today. Patient developed some degree of hypotension yesterday evening and was given some fluid challenges with not much response. She was transferred into the intensive care unit this morning and seems to be doing much better now in the ICU. She has been taken off of Levophed and her blood pressure is stabilized. She has had no further episodes of seizure-like activity since yesterday. As noted her EEG failed to reveal any epileptiform abnormalities. Patient is awaiting return to her [facility] possibly early this week. There is been no significant improvement in her overall neurological status. She does have history of underlying dementia. She is awaiting discharge back to the [facility] when she is medically stable. We will continue close neurological follow-up for the patient during this admission. Patient does seem to be more awake and alert today and is following simple commands. She is being treated for osteomyelitis involving the left foot. Infectious disease has her covered with appropriate antibiotics. Her overall prognosis at this time remains very guarded. Patient continues to do quite well overall in terms of her mental status. The patient continues to show gradual improvement in her overall mental status over the last week. We are waiting further recommendations from discharge planning in terms of her discharge plan. We will continue to follow along with multiple specialists were seeing her today. As noted her overall prognosis remains guarded.
[2017-10-14] MEDS: HEPARIN SODIUM,PORCINE 5,000 UNIT/ML 1 ML VIAL SQ SCH ×2 (07:58→15:53)
[2017-10-14] MEDS: metFORMIN 500 MG TAB PO SCH ×2 (07:58→17:24)
[2017-10-14] MEDS: VANCOMYCIN 1,250 MG in SODIUM CHLORIDE 0.9% 250 ML IVPB SCH (07:58)
[2017-10-14] MEDS: PANTOPRAZOLE 40 MG TABLET PO SCH (07:58)
[2017-10-14] MEDS: BUDESONIDE 0.5 MG/2 ML NEBU INHALATION SCH ×2 (08:21→20:41)
[2017-10-14] MEDS: IPRATROPIUM-ALBUTEROL 3 ML NEB INHALATION SCH ×3 (08:21→20:42)
[2017-10-14 09:10] LABS: Calcium 8.8 mg/dL (8.4-10.2); Potassium 4.9 mmol/L (3.5-5.1)
[2017-10-14] MEDS: amLODIPine 5 MG TAB PO SCH (10:08)
[2017-10-14] MEDS: PIPERACILLIN-TAZOBACTAM 3.375 GM in DEXTROSE/WATER 1 50ML.BAG IVPB SCH ×2 (10:08→15:53)
[2017-10-14] MEDS: METOPROLOL SUCCINATE (ER) 25 MG TAB.ER.24H PO SCH (10:09)
[2017-10-14] MEDS: ATORVASTATIN 20 MG TAB PO SCH (10:09)
[2017-10-14] MEDS: ESCITALOPRAM 5 MG TAB PO SCH (10:09)
[2017-10-14] MEDS: SPIRONOLACTONE 25 MG TAB PO SCH (10:09)
[2017-10-14] MEDS: GABAPENTIN 100 MG CAP PO SCH ×3 (10:09→20:28)
[2017-10-14] MEDS: MEMANTINE 10 MG TAB PO SCH ×2 (10:09→20:28)
[2017-10-14 11:45] LABS: Glucose,Whole Blood 139 mg/dL (75-99)
[2017-10-14] MEDS: COLLAGENASE 250 UNIT/GM OINTMENT 30 GM TUBE TOPICAL SCH (12:08)
[2017-10-14] MEDS: MULTIVITAMINS, THERA 1 EACH TAB PO SCH (13:07)
--- NOTE | 2017-10-14 13:11 | P.PN ---
Subjective Progress Note Date: 10/14/17 HPI: This is a 77-year-old female patient being seen examined and evaluated today for consultation. This patient originally was admitted to the hospital for evaluation of possible syncope and inability to ambulate. The patient is also known to have a left heel infected pressure ulcer which was positive for MRSA and multiple other organisms. Infectious disease was put on consult for that and she has been on IV antibiotics. She also has orthopedics on consult as well and is undergoing a bone scan today to look for any osteomyelitis. She also developed somewhat of a seizure-like activity inpatient, neurology was put on consult and an EEG was performed and was negative for any acute seizures at that time. Apparently the patient had been hemodynamically stable, she had no WBC count and no fevers. Apparently overnight the patient did develop some hypotension. She did receive an IV fluid bolus at that time and she was transferred to the intensive care unit for further evaluation and monitoring. The patient was started on Levophed to maintain her blood pressures and she currently continues on 16 mics at this time. Upon examination she is resting up in bed on 2 L of supplemental oxygen. She appears tired however does answer questions appropriately and is easily arousable. She states she does occasionally have shortness of breath with exertion and activity. She denies any cough or congestion. She has had good urine output. She did receive a 1 time dose of Lasix yesterday. She does occasionally complain of some lower back flank area pain. She has had a decreased appetite. 10/11/17- patient is being seen examined and evaluated today on rounds in the intensive care unit. The patient is currently hemodynamically stable. All of her pressors were weaned off last night. Her current CVP is 9. She did have some marginal urine output overnight however it has improved today. Chest x- ray was reviewed and shows COPD with bilateral atelectasis/infiltrates. She did have a bone scan yesterday which did reveal cellulitis and osteomyelitis of the calcaneus. She does have a good appetite and ate about 75% of her breakfast and is requesting ice cream cups. She is much more alert and awake today. Antibiotics were adjusted yesterday by infectious disease. The patient does not remember most of yesterday, she also has underlying dementia. Case is discussed with the nurse at length. 10/12/17- patient is being seen examined and evaluated today on rounds. She was downgraded from the intensive care unit yesterday. She has been hemodynamically stable. Her blood pressures have been normal. She continues on 2 L of supplemental oxygen via nasal cannula. She is much more alert and awake and conversational today. She does complain of some wound pain and will be getting education for that. She denies any cough or congestion. She is afebrile no further complaints. Labs and reports have been reviewed 10/13/17- patient is being seen examined and evaluated today on rounds she is resting up in bed eating her breakfast. She continues on 2 L of supplemental oxygen via nasal cannula. Patient will be undergoing a PICC line insertion for long-term antibiotics. She will be going to [facility] upon discharge. Discharge planning underway. All labs and reports have been reviewed. She has been afebrile. 10/14/2017: Patient seen and examined. Patient is confused and can't understand why she is here. She states she has been very healthy and doesn't understand how she got so sick. She has been hemodynamically stable. She has been afebrile. Discharge planning is underway. The patient will need a PICC line for antibiotics due to osteomyelitis. She is on 2 L nasal cannula. Objective - Vital Signs Vital signs: Vital Signs Temp 98.0 F 10/14/17 07:40 Pulse 84 10/14/17 08:31 Resp 14 10/14/17 07:40 BP 113/56 10/14/17 07:40 Pulse Ox 92 L 10/14/17 07:40 Intake & Output 10/13/17 10/14/17 10/14/17 18:59 06:59 18:59 Intake Total 1260 1732 Output Total 800 475 Balance 460 1257 Weight 98.4 kg Intake: IV 530 452 0.9 80 Piperacillin-Tazobactam 3 50 50 .375 gm In Dextrose/Water 1 50ml.bag @ 12.5 mls/hr IVPB Q8HR [facility] Rx#: [id number] Sodium Chloride 0.9% 1, 400 402 000 ml @ 50 mls/hr IV . Q20H [facility] Rx#:[id number] Intake, IV Titration 250 Amount Vancomycin 1,250 mg In 250 Sodium Chloride 0.9% 250 ml @ 125 mls/hr IVPB Q16H [facility] Rx#:[id number] Oral 480 1280 Output: Urine 800 475 Other: Voiding Method Indwelling Catheter Indwelling Catheter Indwelling Catheter ABP, PAP, CO, CI - Last Documented Arterial Blood Pressure 114/50 - Exam GENERAL EXAM: More awake and Alert, intermittent confusion with a baseline of dementia, comfortable in no apparent distress. HEAD: Normocephalic. EYES: Normal reaction of pupils, equal size. NOSE: Clear with pink turbinates. THROAT: No erythema or exudates. NECK: No masses, no JVD. CHEST: No chest wall deformity. LUNGS: Lungs noted to be diminished throughout with some faint expiratory wheezing. improving CVS: S1 and S2 normal with no audible mumurs, regular rhythm. ABDOMEN: No hepatosplenomegaly, normal bowel sounds, no guarding or rigidity. EXTREMITIES: No edema noted, pedal pulses palpable. Left lower extremity dressing clean dry and intact CENTRAL NERVOUS SYSTEM: No focal deficits, tone is normal in all 4 extremities. - Labs CBC & Chem 7: 10/12/17 06:37 10/14/17 08:34 Labs: Abnormal Lab Results - Last 24 Hours (Table) 10/13/17 10/13/17 10/14/17 Range/Units 16:53 19:20 06:53 Glucose (74-99) mg/dL POC Glucose (mg/dL) 175 H 113 H (75-99) mg/dL Urine Appearance Cloudy H (Clear) Urine Blood Small H (Negative) Ur Leukocyte Esterase Large H (Negative) Urine RBC 12 H (0-5) /hpf Urine WBC 108 H (0-5) /hpf Ur Squamous Epith Cells 6 H (0-4) /hpf Urine Mucus Occasional H (None) /hpf Urine Yeast (Budding) Few H (None) /hpf 10/14/17 10/14/17 Range/Units 08:34 11:43 Glucose 123 H (74-99) mg/dL POC Glucose (mg/dL) 139 H (75-99) mg/dL Urine Appearance (Clear) Urine Blood (Negative) Ur Leukocyte Esterase (Negative) Urine RBC (0-5) /hpf Urine WBC (0-5) /hpf Ur Squamous Epith Cells (0-4) /hpf Urine Mucus (None) /hpf Urine Yeast (Budding) (None) /hpf Microbiology - Last 24 Hours (Table) 10/13/17 19:20 Urine Culture - Preliminary Urine,Clean Catch 10/10/17 15:45 Blood Culture - Preliminary Blood No Growth after 72 hours Assessment and Plan Assessment: Shock, septic Right middle lobe infiltrate pneumonia Hypotension Acute hypoxic respiratory failure requiring supplemental oxygen Generalized weakness and medical debility Hypomagnesemia Underlying dementia Osteomyelitis of the left foot Plan Patient is cleared from a pulmonary/instructional aide standpoint for discharge Plan for PICC line for ABX due to OM Medications have been reviewed and will be continued as ordered. Patient has been hemodynamically stable Echocardiogram EF 45-50% Infectious disease on consult and adjusting antibiotics Continue to monitor and replace electrolytes per protocol Bone scan reviewed Continue with pulmonary hygiene, coughing and deep breathing exercises, and supportive care. Supplemental oxygen to maintain oxygen saturations of 92% or better. Initiate and encourage incentive spirometer Wound care Continue nebulizer treatments. GI and DVT prophylaxis. Protonix and Eliquis Increase activity as tolerated and per ortho recommendations, PT and OT also We will continue to monitor labs/results and adjust treatment as necessary. Further recommendations pending.
[2017-10-14] MEDS: traMADol 50 MG TAB PO PRN (17:17)
[2017-10-14 17:20] LABS: Glucose,Whole Blood 178 mg/dL (75-99)
[2017-10-14 20:23] LABS: Glucose,Whole Blood 139 mg/dL (75-99)
[2017-10-14] MEDS: MELATONIN 3 MG TABLET PO SCH (20:28)
[2017-10-14] MEDS: DONEPEZIL 10 MG TAB PO SCH (20:28)
--- NOTE | 2017-10-14 22:28 | PN ---
PROGRESS NOTE SUBJECTIVE: This is a 77-year-old white female with MRSA infection in her left heel. She is on IV vancomycin. She is confused. She is not sure why she is in the hospital, does not know how she got so sick. She is going to get a PICC line on Monday for osteomyelitis and then get hopefully home IV antibiotics through a PICC line. Instead of [place], her family wants her not to go back to [facility] if possible. HEENT: Normocephalic, atraumatic. NEURO: Alert oriented x1. PSYCH: Anxious. CARDIOVASCULAR: S1, S2. Lungs are clear. White count is 8.4 and hemoglobin 10.7. ASSESSMENT: 1. Septic shock, status post ICU treatment for hypotension requiring vasopressors. 2. Osteomyelitis of the left foot. 3. Dementia. 4. Hypomagnesemia. 5. Hypertension. She is pretty much cleared for discharge once we get a PICC line in on Monday for IV antibiotics. Await PICC line placement prior to discharge. Hopefully back home, where she can get home heel care and IV antibiotics. MMODL / IJN: [id number] /
[2017-10-15] MEDS: VANCOMYCIN 1,250 MG in SODIUM CHLORIDE 0.9% 250 ML IVPB SCH ×2 (00:12→16:03)
[2017-10-15] MEDS: HEPARIN SODIUM,PORCINE 5,000 UNIT/ML 1 ML VIAL SQ SCH ×3 (00:12→16:03)
[2017-10-15] MEDS: PIPERACILLIN-TAZOBACTAM 3.375 GM in DEXTROSE/WATER 1 50ML.BAG IVPB SCH ×3 (02:49→20:17)
--- NOTE | 2017-10-15 04:53 | PN ---
PROGRESS NOTE DATE OF SERVICE: 10/14/2017. REASON FOR FOLLOWUP: Left heel osteomyelitis. INTERVAL HISTORY: The patient is afebrile. She is more awake, alert. She is breathing comfortably. Denies any chest pain or cough. No abdominal pain. No diarrhea. She is complaining of some pain to the left knee area, but no worsening. EXAMINATION: Blood pressure is 117/51 with a pulse of 66. Temperature 98.8. She is 96% on 2 L nasal cannula. General description is an elderly female lying in bed in no distress. RESPIRATORY SYSTEM: Unlabored breathing. Clear to auscultation anteriorly. HEART: S1, S2. Regular rate and rhythm. ABDOMEN: Soft, no tenderness. Left heel wound is currently dressed up with no obvious drainage on the dressing. LABS: BUN of 12, creatinine 0.97. DIAGNOSTIC IMPRESSION AND PLAN: Patient with left heel pressure ulcer stage IV with underlying osteomyelitis. Culture positive for MRSA and Proteus. The patient waiting for a PICC line placement for outpatient IV antibiotic therapy that will be vancomycin pharmacy to dose and Rocephin. Local wound care to continue with . Continue supportive care. MMODL / IJN: [id number] /
[2017-10-15 07:12] LABS: Glucose,Whole Blood 109 mg/dL (75-99)
[2017-10-15] MEDS: INSULIN ASPART 100 UNIT/ML 1 ML 10 ML VIAL SQ SCH ×4 (07:16→20:21)
[2017-10-15] MEDS: PANTOPRAZOLE 40 MG TABLET PO SCH (07:20)
[2017-10-15] MEDS: metFORMIN 500 MG TAB PO SCH ×2 (07:20→17:28)
--- NOTE | 2017-10-15 08:06 | P.PN ---
Subjective Progress Note Date: 10/14/17 This patient is a 77-year-old right-handed white female who is status post recent left hip hemiarthroplasty on 07/10/2017. She was admitted to hospital for evaluation of syncope and inability to ambulate. 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 The patient did not qualify for any stroke intervention. She was sent for routine EEG which was reviewed and failed to reveal any epileptiform discharges. Her mental status has improved to some degree today. She does have history of underlying dementia as well. Neurologically she remains intact. She denies any headache or focal weakness. We will continue close neurological follow-up for the patient. She is being treated for wound healing involving her left heel. She has history of underlying insulin-dependent diabetes mellitus. We recommend tight control of her blood sugars. She has undergone some debridement. She has a bandage in place but states her left foot does pain her. Patient is being followed by orthopedic surgery for recent history of left hip hemiarthroplasty that was done back on 07/10/2017. Orthopedic surgery is recommending weightbearing as tolerated with a walker and physical therapy. Patient has had no further episodes of seizure-like activity. As noted her EEG failed to reveal any epileptiform discharges. Orthopedics is following the patient for her left hip pain. She continues to show evidence of underlying dementia and is a very poor historian. Her left heel ulcer is slowly being treated and show some signs of improvement. We'll await further recommendations from infectious disease. Plans are for consideration for returning the patient to halfway at time of discharge. Unfortunately last night the patient developed severe hypotension. She was given IV fluid resuscitation but this did not help. She was transferred to the intensive care unit for further evaluation and treatment. She was started on Levophed to maintain her blood pressure. She is currently on 16 mics of Levophed. She was subsequently weaned off of Levophed and her pressure has now stabilized. She seems to be back to baseline level of function in the intensive care unit at this time. Most likely this patient developed some degree of dehydration producing her hypotensive episode. We will continue to follow her progress closely with multiple other specialists. She does seem to be more appropriate this afternoon and is following some simple commands. Patient is confused and is not clear why she remains in the hospital today. As noted she does have history of underlying dementia. She has left foot pressure ulcer with osteomyelitis which is being treated by infectious disease. She is currently being treated with antibiotics which include vancomycin and Zosyn. She is afebrile today. The patient will need a PICC line for antibiotic treatment of her osteomyelitis. We will continue close neurological follow-up the patient during this admission. Objective - Vital Signs Vital signs: Vital Signs Temp 98.8 F 10/14/17 17:44 Pulse 82 10/14/17 20:59 Resp 16 10/14/17 17:44 BP 117/51 10/14/17 17:44 Pulse Ox 96 10/14/17 17:44 Intake & Output 10/14/17 10/14/17 10/15/17 06:59 18:59 06:59 Intake Total 1732 350 Output Total 475 Balance 1257 350 Intake: IV 452 350 Piperacillin-Tazobactam 3 50 .375 gm In Dextrose/Water 1 50ml.bag @ 12.5 mls/hr IVPB Q8HR R[facility] Rx#: [id number] Sodium Chloride 0.9% 1, 402 350 000 ml @ 50 mls/hr IV . Q20H RACHELLE Rx#:[id number] Oral 1280 Output: Urine 475 Other: Voiding Method Indwelling Catheter Indwelling Catheter ABP, PAP, CO, CI - Last Documented Arterial Blood Pressure 114/50 - Exam Physical Examination: PHYSICAL EXAMINATION: Patient is resting comfortably in bed. Patient examined in the intensive care unit today and seems to be appropriate for her age. VITAL SIGNS: Blood pressure is [117/51]. Heart rate is [65]. Respiration is [16] . Temperature is [98.8]. HEENT: Head is atraumatic, neck is supple, there were no carotid bruits. CHEST: Lungs are clear to auscultation and percussion. CARDIAC: S1, S2 normal rate and rhythm. There is no murmur. ABDOMEN: Soft and nontender. Bowel sounds are present. EXTREMITIES: There is no pedal edema. Peripheral pulses are present. Neurological examination: Patient neurological exam is unchanged from yesterday. The patient is confused this morning but does seem to be oriented. She does have history of underlying dementia. - Labs CBC & Chem 7: 10/12/17 06:37 10/14/17 08:34 Labs: Abnormal Lab Results - Last 24 Hours (Table) 10/13/17 10/14/17 10/14/17 Range/Units 19:20 06:53 08:34 Glucose 123 H (74-99) mg/dL POC Glucose (mg/dL) 113 H (75-99) mg/dL Urine Appearance Cloudy H (Clear) Urine Blood Small H (Negative) Ur Leukocyte Esterase Large H (Negative) Urine RBC 12 H (0-5) /hpf Urine WBC 108 H (0-5) /hpf Ur Squamous Epith Cells 6 H (0-4) /hpf Urine Mucus Occasional H (None) /hpf Urine Yeast (Budding) Few H (None) /hpf 10/14/17 10/14/17 10/14/17 Range/Units 11:43 17:19 20:21 Glucose (74-99) mg/dL POC Glucose (mg/dL) 139 H 178 H 139 H (75-99) mg/dL Urine Appearance (Clear) Urine Blood (Negative) Ur Leukocyte Esterase (Negative) Urine RBC (0-5) /hpf Urine WBC (0-5) /hpf Ur Squamous Epith Cells (0-4) /hpf Urine Mucus (None) /hpf Urine Yeast (Budding) (None) /hpf Microbiology - Last 24 Hours (Table) 10/10/17 15:45 Blood Culture - Preliminary Blood No Growth after 96 hours 10/13/17 19:20 Urine Culture - Preliminary Urine,Clean Catch Assessment and Plan (1) Syncope and collapse Current Visit: Yes Status: Acute Code(s): R55 - SYNCOPE AND COLLAPSE SNOMED Code(s): 436377207 (2) Dementia Current Visit: Yes Status: Acute Code(s): F03.90 - UNSPECIFIED DEMENTIA WITHOUT BEHAVIORAL DISTURBANCE SNOMED Code(s): 07993452 (3) Left hip pain Current Visit: Yes Status: Acute Code(s): M25.552 - PAIN IN LEFT HIP SNOMED Code(s): 87863657 (4) Status post hip hemiarthroplasty Current Visit: No Status: Acute Code(s): Z96.649 - PRESENCE OF UNSPECIFIED ARTIFICIAL HIP JOINT SNOMED Code(s): 585645514 Plan: This patient is a 77-year-old female who recently underwent left hip hemiarthroplasty on 07/10/2017. She is residing in a halfway and has been having increasing difficulty to ambulate as well as possible syncopal episode. She had a event yesterday morning suggesting possibility of seizure and a code stroke was initiated. She did not have any evidence for acute stroke and did not require any further intervention. Today she seems to be back to baseline level of function terms of her mental status. She underwent routine EEG yesterday which failed to reveal any epileptiform discharges. She is undergoing debridement of her left heel. Her mental status has shown improvement today. Patient developed some degree of hypotension yesterday evening and was given some fluid challenges with not much response. She was transferred into the intensive care unit this morning and seems to be doing much better now in the ICU. She has been taken off of Levophed and her blood pressure is stabilized. She has had no further episodes of seizure-like activity since yesterday. As noted her EEG failed to reveal any epileptiform abnormalities. Patient is awaiting return to her halfway possibly early this week. There is been no significant improvement in her overall neurological status. She does have history of underlying dementia. She is awaiting discharge back to the halfway when she is medically stable. We will continue close neurological follow-up for the patient during this admission. Patient does seem to be more awake and alert today and is following simple commands. She is being treated for osteomyelitis involving the left foot. Infectious disease has her covered with appropriate antibiotics. Her overall prognosis at this time remains very guarded. Patient continues to do quite well overall in terms of her mental status. The patient continues to show gradual improvement in her overall mental status over the last week. The patient will need a PICC line placed for IV antibiotic therapy for treatment of her osteomyelitis. She is on 2 L nasal oxygen and seems to be tolerating this well. We are waiting further recommendations from discharge planning in terms of her discharge plan. We will continue to follow along with multiple specialists were seeing her today. As noted her overall prognosis remains guarded.
[2017-10-15] MEDS: BUDESONIDE 0.5 MG/2 ML NEBU INHALATION SCH ×2 (08:10→20:22)
[2017-10-15] MEDS: IPRATROPIUM-ALBUTEROL 3 ML NEB INHALATION SCH ×3 (08:10→20:22)
[2017-10-15 08:21] LABS: Basophils % (A) 0 %; Eosinophils # (A) 0.4 k/uL (0-0.7); Eosinophils % (A) 5 %; HCT 33.7 % (34.0-46.0); HGB 10.8 gm/dL (11.4-16.0); Hypochromasia Slight; Lymphocytes # (A) 1.9 k/uL (1.0-4.8); Lymphocytes % (A) 20 %; MCH 29.3 pg (25.0-35.0); MCHC 32.1 g/dL (31.0-37.0); MCV 91.4 fL (80.0-100.0); Mean Platelet Volume 6.8; Monocytes # (A) 0.7 k/uL (0-1.0); Monocytes % (A) 7 %; Neutrophils # (A) 6.1 k/uL (1.3-7.7); Neutrophils % (A) 67 %; Platelet Count 288 k/uL (150-450); RBC 3.68 m/uL (3.80-5.40); RDW 15.1 % (11.5-15.5); WBC 9.2 k/uL (3.8-10.6)
[2017-10-15] MEDS: ESCITALOPRAM 5 MG TAB PO SCH (08:30)
[2017-10-15] MEDS: GABAPENTIN 100 MG CAP PO SCH ×3 (08:30→21:39)
[2017-10-15] MEDS: SODIUM CHLORIDE 0.9% 1,000 ML IV SCH (08:30)
[2017-10-15] MEDS: amLODIPine 5 MG TAB PO SCH (08:30)
[2017-10-15] MEDS: ATORVASTATIN 20 MG TAB PO SCH (08:30)
[2017-10-15] MEDS: METOPROLOL SUCCINATE (ER) 25 MG TAB.ER.24H PO SCH (08:31)
[2017-10-15] MEDS: MEMANTINE 10 MG TAB PO SCH ×2 (08:31→20:17)
[2017-10-15] MEDS: SPIRONOLACTONE 25 MG TAB PO SCH (08:31)
[2017-10-15 08:37] LABS: Albumin 3.1 g/dL (3.5-5.0); Potassium 4.9 mmol/L (3.5-5.1); Total Bilirubin 0.4 mg/dL (0.2-1.3); Total Protein 6.3 g/dL (6.3-8.2)
[2017-10-15] MEDS: traMADol 50 MG TAB PO PRN (09:10)
--- NOTE | 2017-10-15 09:53 | P.PN ---
Subjective Progress Note Date: 10/15/17 HPI: This is a 77-year-old female patient being seen examined and evaluated today for consultation. This patient originally was admitted to the hospital for evaluation of possible syncope and inability to ambulate. The patient is also known to have a left heel infected pressure ulcer which was positive for MRSA and multiple other organisms. Infectious disease was put on consult for that and she has been on IV antibiotics. She also has orthopedics on consult as well and is undergoing a bone scan today to look for any osteomyelitis. She also developed somewhat of a seizure-like activity inpatient, neurology was put on consult and an EEG was performed and was negative for any acute seizures at that time. Apparently the patient had been hemodynamically stable, she had no WBC count and no fevers. Apparently overnight the patient did develop some hypotension. She did receive an IV fluid bolus at that time and she was transferred to the intensive care unit for further evaluation and monitoring. The patient was started on Levophed to maintain her blood pressures and she currently continues on 16 mics at this time. Upon examination she is resting up in bed on 2 L of supplemental oxygen. She appears tired however does answer questions appropriately and is easily arousable. She states she does occasionally have shortness of breath with exertion and activity. She denies any cough or congestion. She has had good urine output. She did receive a 1 time dose of Lasix yesterday. She does occasionally complain of some lower back flank area pain. She has had a decreased appetite. 10/11/17- patient is being seen examined and evaluated today on rounds in the intensive care unit. The patient is currently hemodynamically stable. All of her pressors were weaned off last night. Her current CVP is 9. She did have some marginal urine output overnight however it has improved today. Chest x- ray was reviewed and shows COPD with bilateral atelectasis/infiltrates. She did have a bone scan yesterday which did reveal cellulitis and osteomyelitis of the calcaneus. She does have a good appetite and ate about 75% of her breakfast and is requesting ice cream cups. She is much more alert and awake today. Antibiotics were adjusted yesterday by infectious disease. The patient does not remember most of yesterday, she also has underlying dementia. Case is discussed with the nurse at length. 10/12/17- patient is being seen examined and evaluated today on rounds. She was downgraded from the intensive care unit yesterday. She has been hemodynamically stable. Her blood pressures have been normal. She continues on 2 L of supplemental oxygen via nasal cannula. She is much more alert and awake and conversational today. She does complain of some wound pain and will be getting education for that. She denies any cough or congestion. She is afebrile no further complaints. Labs and reports have been reviewed 10/13/17- patient is being seen examined and evaluated today on rounds she is resting up in bed eating her breakfast. She continues on 2 L of supplemental oxygen via nasal cannula. Patient will be undergoing a PICC line insertion for long-term antibiotics. She will be going to [facility] upon discharge. Discharge planning underway. All labs and reports have been reviewed. She has been afebrile. 10/14/17- patient is being seen examined and evaluated today on rounds. She is resting up in bed on 2 L of supplemental oxygen via nasal cannula. Her breathing has been relatively stable. She does have physical therapy on board. Patient is still waiting for PICC line placement hopefully will happen Monday. He continues with wound care. Discharge planning continues. Afebrile no further complaints. Urine output has been good. Objective - Vital Signs Vital signs: Vital Signs Temp 98.6 F 10/15/17 07:05 Pulse 86 10/15/17 07:05 Resp 14 10/15/17 07:05 BP 124/69 10/15/17 07:05 Pulse Ox 96 10/15/17 07:05 Intake & Output 10/14/17 10/15/17 10/15/17 18:59 06:59 18:59 Intake Total 350 700 Balance 350 700 Intake: IV 350 700 0.9 650 Piperacillin-Tazobactam 3 50 .375 gm In Dextrose/Water 1 50ml.bag @ 12.5 mls/hr IVPB Q8HR [facility] Rx#: [id number] Sodium Chloride 0.9% 1, 350 000 ml @ 50 mls/hr IV . Q20H R[facility]HELLE Rx#:[id number] Other: Voiding Method Indwelling Catheter ABP, PAP, CO, CI - Last Documented Arterial Blood Pressure 114/50 - Exam GENERAL EXAM: More awake and Alert, intermittent confusion with a baseline of dementia, comfortable in no apparent distress. HEAD: Normocephalic. EYES: Normal reaction of pupils, equal size. NOSE: Clear with pink turbinates. THROAT: No erythema or exudates. NECK: No masses, no JVD. CHEST: No chest wall deformity. LUNGS: Lungs noted to be diminished throughout with some faint expiratory wheezing. improving CVS: S1 and S2 normal with no audible mumurs, regular rhythm. ABDOMEN: No hepatosplenomegaly, normal bowel sounds, no guarding or rigidity. EXTREMITIES: No edema noted, pedal pulses palpable. Left lower extremity dressing clean dry and intact CENTRAL NERVOUS SYSTEM: No focal deficits, tone is normal in all 4 extremities. - Labs CBC & Chem 7: 10/15/17 07:48 10/15/17 07:48 Labs: Abnormal Lab Results - Last 24 Hours (Table) 10/14/17 10/14/17 10/14/17 Range/Units 11:43 17:19 20:21 RBC (3.80-5.40) m/uL Hgb (11.4-16.0) gm/dL Hct (34.0-46.0) % Glucose (74-99) mg/dL POC Glucose (mg/dL) 139 H 178 H 139 H (75-99) mg/dL Alkaline Phosphatase (38-126) U/L Albumin (3.5-5.0) g/dL 10/15/17 10/15/17 10/15/17 Range/Units 07:10 07:48 07:48 RBC 3.68 L (3.80-5.40) m/uL Hgb 10.8 L (11.4-16.0) gm/dL Hct 33.7 L (34.0-46.0) % Glucose 113 H (74-99) mg/dL POC Glucose (mg/dL) 109 H (75-99) mg/dL Alkaline Phosphatase 147 H (38-126) U/L Albumin 3.1 L (3.5-5.0) g/dL Microbiology - Last 24 Hours (Table) 10/10/17 15:45 Blood Culture - Preliminary Blood No Growth after 96 hours 10/13/17 19:20 Urine Culture - Preliminary Urine,Clean Catch Assessment and Plan Assessment: Assessment Shock, septic Right middle lobe infiltrate pneumonia Hypotension Acute hypoxic respiratory failure requiring supplemental oxygen Generalized weakness and medical debility Hypomagnesemia Underlying dementia Osteomyelitis of the left foot Plan 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 Patient has been hemodynamically stable Echocardiogram EF 45-50% Infectious disease on consult and adjusting antibiotics Continue to monitor and replace electrolytes per protocol Bone scan reviewed Continue with pulmonary hygiene, coughing and deep breathing exercises, and supportive care. Supplemental oxygen to maintain oxygen saturations of 92% or better. Initiate and encourage incentive spirometer Wound care Continue nebulizer treatments. GI and DVT prophylaxis. Protonix and Eliquis Increase activity as tolerated and per ortho recommendations, PT and OT also We will continue to monitor labs/results and adjust treatment as necessary. Further recommendations pending. I performed an examination of the patient and discussed their management with the nurse practitioner. I have reviewed the nurse practitioner's note and agree with the documented findings and plan of care.
[2017-10-15 11:10] LABS: Glucose,Whole Blood 128 mg/dL (75-99)
[2017-10-15] MEDS: COLLAGENASE 250 UNIT/GM OINTMENT 30 GM TUBE TOPICAL SCH (11:13)
[2017-10-15] MEDS: MULTIVITAMINS, THERA 1 EACH TAB PO SCH (12:36)
[2017-10-15] MEDS ORDERED: VANCOMYCIN TROUGH DUE 1 EACH MISC MISCELLANE ONE (14:00)
[2017-10-15 17:15] LABS: Glucose,Whole Blood 140 mg/dL (75-99)
[2017-10-15 20:05] LABS: Glucose,Whole Blood 132 mg/dL (75-99)
[2017-10-15] MEDS: DONEPEZIL 10 MG TAB PO SCH (20:17)
[2017-10-15] MEDS: MELATONIN 3 MG TABLET PO SCH (20:17)
--- NOTE | 2017-10-15 22:20 | PN ---
PROGRESS NOTE SUBJECTIVE: 77-year-old white female who is admitted to the hospital with MRSA cellulitis of the left heel. The patient continues to get IV vancomycin. Waiting for PICC line tomorrow at which time [facility] or hopefully back to [facility] for home IV antibiotics per Infectious Disease recommendations. Cardiovascular S1, S2. Lungs are clear. GI soft. Hematology negative Homans. ASSESSMENT: 1. 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 2. Dementia. 3. Hypertension. 4. Depression. 5. Dyslipidemia. 6. Chronic obstructive pulmonary disease. 7. Chronic neuritis. 8. Recent hip trochanter fracture of the left hip and left radial fracture. Continue current treatment. MMODL / IJN: [id number] /
[2017-10-16] MEDS: PIPERACILLIN-TAZOBACTAM 3.375 GM in DEXTROSE/WATER 1 50ML.BAG IVPB SCH ×3 (00:26→17:13)
[2017-10-16] MEDS: SODIUM CHLORIDE 0.9% 1,000 ML IV SCH ×2 (00:26→21:06)
[2017-10-16] MEDS: HEPARIN SODIUM,PORCINE 5,000 UNIT/ML 1 ML VIAL SQ SCH ×3 (00:26→18:49)
--- NOTE | 2017-10-16 01:14 | P.PN ---
Subjective Progress Note Date: 10/15/17 This patient is a 77-year-old right-handed white female who is status post recent left hip hemiarthroplasty on 07/10/2017. She was admitted to hospital for evaluation of syncope and inability to ambulate. Yesterday she developed chief of anesthesiology a possible seizure like activity and a code stroke was called. The patient did not qualify for any stroke intervention. She was sent for routine EEG which was reviewed and failed to reveal any epileptiform discharges. Her mental status has improved to some degree today. She does have history of underlying dementia as well. Neurologically she remains intact. She denies any headache or focal weakness. We will continue close neurological follow-up for the patient. She is being treated for wound healing involving her left heel. She has history of underlying insulin-dependent diabetes mellitus. We recommend tight control of her blood sugars. She has undergone some debridement. She has a bandage in place but states her left foot does pain her. Patient is being followed by orthopedic surgery for recent history of left hip hemiarthroplasty that was done back on 07/10/2017. Orthopedic surgery is recommending weightbearing as tolerated with a walker and physical therapy. Patient has had no further episodes of seizure-like activity. As noted her EEG failed to reveal any epileptiform discharges. Orthopedics is following the patient for her left hip pain. She continues to show evidence of underlying dementia and is a very poor historian. Her left heel ulcer is slowly being treated and show some signs of improvement. We'll await further recommendations from infectious disease. Plans are for consideration for returning the patient to fpc at time of discharge. Unfortunately last night the patient developed severe hypotension. She was given IV fluid resuscitation but this did not help. She was transferred to the intensive care unit for further evaluation and treatment. She was started on Levophed to maintain her blood pressure. She is currently on 16 mics of Levophed. She was subsequently weaned off of Levophed and her pressure has now stabilized. She seems to be back to baseline level of function in the intensive care unit at this time. Most likely this patient developed some degree of dehydration producing her hypotensive episode. We will continue to follow her progress closely with multiple other specialists. She does seem to be more appropriate this afternoon and is following some simple commands. Patient is confused and is not clear why she remains in the hospital today. As noted she does have history of underlying dementia. She has left foot pressure ulcer with osteomyelitis which is being treated by infectious disease. She is currently being treated with antibiotics which include vancomycin and Zosyn. She is afebrile today. The patient will need a PICC line for antibiotic treatment of her osteomyelitis. We will follow along with multiple specialists that are seeing this patient. Patient does have history of underlying dementia which remains stable. We will continue close neurological follow-up the patient during this admission. Objective - Vital Signs Vital signs: Vital Signs Temp 98.6 F 10/15/17 07:05 Pulse 86 10/15/17 07:05 Resp 14 10/15/17 07:05 BP 124/69 10/15/17 07:05 Pulse Ox 96 10/15/17 07:05 Intake & Output 10/14/17 10/15/17 10/15/17 18:59 06:59 18:59 Intake Total 350 700 Balance 350 700 Intake: IV 350 700 0.9 650 Piperacillin-Tazobactam 3 50 .375 gm In Dextrose/Water 1 50ml.bag @ 12.5 mls/hr IVPB Q8HR [facility] Rx#: [id number] Sodium Chloride 0.9% 1, 350 000 ml @ 50 mls/hr IV . Q20H [facility] Rx#:[id number] Other: Voiding Method Indwelling Catheter ABP, PAP, CO, CI - Last Documented Arterial Blood Pressure 114/50 - Exam Physical Examination: PHYSICAL EXAMINATION: Patient is resting comfortably in bed. Patient examined in the intensive care unit today and seems to be appropriate for her age. VITAL SIGNS: Blood pressure is [117/51]. Heart rate is [65]. Respiration is [16] . Temperature is [98.8]. HEENT: Head is atraumatic, neck is supple, there were no carotid bruits. CHEST: Lungs are clear to auscultation and percussion. CARDIAC: S1, S2 normal rate and rhythm. There is no murmur. ABDOMEN: Soft and nontender. Bowel sounds are present. EXTREMITIES: There is no pedal edema. Peripheral pulses are present. Neurological examination: Patient neurological exam is unchanged from yesterday. The patient is confused this morning but does seem to be oriented. She does have history of underlying dementia. - Labs CBC & Chem 7: 10/15/17 07:48 10/15/17 07:48 Labs: Abnormal Lab Results - Last 24 Hours (Table) 10/14/17 10/14/17 10/14/17 Range/Units 08:34 11:43 17:19 Glucose 123 H (74-99) mg/dL POC Glucose (mg/dL) 139 H 178 H (75-99) mg/dL 10/14/17 10/15/17 Range/Units 20:21 07:10 Glucose (74-99) mg/dL POC Glucose (mg/dL) 139 H 109 H (75-99) mg/dL Microbiology - Last 24 Hours (Table) 10/10/17 15:45 Blood Culture - Preliminary Blood No Growth after 96 hours 10/13/17 19:20 Urine Culture - Preliminary Urine,Clean Catch Assessment and Plan (1) Syncope and collapse Current Visit: Yes Status: Acute Code(s): R55 - SYNCOPE AND COLLAPSE SNOMED Code(s): 350953295 (2) Dementia Current Visit: Yes Status: Acute Code(s): F03.90 - UNSPECIFIED DEMENTIA WITHOUT BEHAVIORAL DISTURBANCE SNOMED Code(s): 66455352 (3) Left hip pain Current Visit: Yes Status: Acute Code(s): M25.552 - PAIN IN LEFT HIP SNOMED Code(s): 59758803 (4) Status post hip hemiarthroplasty Current Visit: No Status: Acute Code(s): Z96.649 - PRESENCE OF UNSPECIFIED ARTIFICIAL HIP JOINT SNOMED Code(s): 632636900 Plan: This patient is a 77-year-old female who recently underwent left hip hemiarthroplasty on 07/10/2017. She is residing in a fpc and has been having increasing difficulty to ambulate as well as possible syncopal episode. She had a event yesterday morning suggesting possibility of seizure and a code stroke was initiated. She did not have any evidence for acute stroke and did not require any further intervention. Today she seems to be back to baseline level of function terms of her mental status. She underwent routine EEG yesterday which failed to reveal any epileptiform discharges. She is undergoing debridement of her left heel. Her mental status has shown improvement today. Patient developed some degree of hypotension yesterday evening and was given some fluid challenges with not much response. She was transferred into the intensive care unit this morning and seems to be doing much better now in the ICU. She has been taken off of Levophed and her blood pressure is stabilized. She has had no further episodes of seizure-like activity since yesterday. As noted her EEG failed to reveal any epileptiform abnormalities. Patient is awaiting return to her fpc possibly early this week. There is been no significant improvement in her overall neurological status. She does have history of underlying dementia. She is awaiting discharge back to the fpc when she is medically stable. We will continue close neurological follow-up for the patient during this admission. Patient does seem to be more awake and alert today and is following simple commands. She is being treated for osteomyelitis involving the left foot. Infectious disease has her covered with appropriate antibiotics. Her overall prognosis at this time remains very guarded. Patient continues to do quite well overall in terms of her mental status. The patient continues to show gradual improvement in her overall mental status over the last week. The patient will need a PICC line placed for IV antibiotic therapy for treatment of her osteomyelitis. She is on 2 L nasal oxygen and seems to be tolerating this well. We are waiting further recommendations from discharge planning in terms of her discharge plan. Patient has stable findings in terms of her underlying dementia. She is awaiting antibiotic treatment through the PICC line. We will continue to follow along with multiple specialists were seeing her today. As noted her overall prognosis remains guarded.
--- NOTE | 2017-10-16 05:48 | PN ---
PROGRESS NOTE DATE OF SERVICE: 10/15/2017 REASON FOR FOLLOWUP: Left heel stage IV pressure ulcer with secondary osteomyelitis. INTERVAL HISTORY: The patient is currently afebrile. She is breathing comfortably. Denies having any chest pain or any cough. No abdominal pain or any worsening pain to the left heel area. PHYSICAL EXAMINATION: On examination, blood pressure 91/60 with a pulse of 76, temperature 97.9. She is 93% on room air. General description is an elderly female, lying in bed in no distress. RESPIRATORY SYSTEM: Unlabored breathing, clear to auscultation anteriorly. HEART: S1, S2. Regular rate and rhythm. ABDOMEN: Soft, no tenderness. Left heel wound is currently dressed up, no obvious drainage on the dressing. LABS: Hemoglobin is 10.8, white count 9.2, BUN of 11, creatinine 1.0. DIAGNOSTIC IMPRESSION AND PLAN: Patient with left heel blood pressure ulcer with underlying osteomyelitis. Culture positive for Enterococcus faecalis, methicillin-resistant Staphylococcus aureus and Proteus. Currently on Zosyn and vancomycin vancomycin pharmacy to dose Rocephin 2 grams daily for a total of 6 weeks with close outpatient followup. MMODL / IJN: [id number] /
[2017-10-16] MEDS: VANCOMYCIN 1,250 MG in SODIUM CHLORIDE 0.9% 250 ML IVPB SCH (06:01)
[2017-10-16 07:12] LABS: Calcium 9.1 mg/dL (8.4-10.2); Potassium 4.4 mmol/L (3.5-5.1)
[2017-10-16] MEDS: BUDESONIDE 0.5 MG/2 ML NEBU INHALATION SCH ×3 (07:27→20:40)
[2017-10-16] MEDS: IPRATROPIUM-ALBUTEROL 3 ML NEB INHALATION SCH ×4 (07:27→20:40)
[2017-10-16 07:38] LABS: Glucose,Whole Blood 107 mg/dL (75-99)
[2017-10-16] MEDS: INSULIN ASPART 100 UNIT/ML 1 ML 10 ML VIAL SQ SCH ×4 (09:15→21:06)
--- NOTE | 2017-10-16 10:10 | P.PN ---
Subjective Progress Note Date: 10/16/17 HPI: This is a 77-year-old female patient being seen examined and evaluated today for consultation. This patient originally was admitted to the hospital for evaluation of possible syncope and inability to ambulate. The patient is also known to have a left heel infected pressure ulcer which was positive for MRSA and multiple other organisms. Infectious disease was put on consult for that and she has been on IV antibiotics. She also has orthopedics on consult as well and is undergoing a bone scan today to look for any osteomyelitis. She also developed somewhat of a seizure-like activity inpatient, neurology was put on consult and an EEG was performed and was negative for any acute seizures at that time. Apparently the patient had been hemodynamically stable, she had no WBC count and no fevers. Apparently overnight the patient did develop some hypotension. She did receive an IV fluid bolus at that time and she was transferred to the intensive care unit for further evaluation and monitoring. The patient was started on Levophed to maintain her blood pressures and she currently continues on 16 mics at this time. Upon examination she is resting up in bed on 2 L of supplemental oxygen. She appears tired however does answer questions appropriately and is easily arousable. She states she does occasionally have shortness of breath with exertion and activity. She denies any cough or congestion. She has had good urine output. She did receive a 1 time dose of Lasix yesterday. She does occasionally complain of some lower back flank area pain. She has had a decreased appetite. 10/11/17- patient is being seen examined and evaluated today on rounds in the intensive care unit. The patient is currently hemodynamically stable. All of her pressors were weaned off last night. Her current CVP is 9. She did have some marginal urine output overnight however it has improved today. Chest x- ray was reviewed and shows COPD with bilateral atelectasis/infiltrates. She did have a bone scan yesterday which did reveal cellulitis and osteomyelitis of the calcaneus. She does have a good appetite and ate about 75% of her breakfast and is requesting ice cream cups. She is much more alert and awake today. Antibiotics were adjusted yesterday by infectious disease. The patient does not remember most of yesterday, she also has underlying dementia. Case is discussed with the nurse at length. 10/12/17- patient is being seen examined and evaluated today on rounds. She was downgraded from the intensive care unit yesterday. She has been hemodynamically stable. Her blood pressures have been normal. She continues on 2 L of supplemental oxygen via nasal cannula. She is much more alert and awake and conversational today. She does complain of some wound pain and will be getting education for that. She denies any cough or congestion. She is afebrile no further complaints. Labs and reports have been reviewed 10/13/17- patient is being seen examined and evaluated today on rounds she is resting up in bed eating her breakfast. She continues on 2 L of supplemental oxygen via nasal cannula. Patient will be undergoing a PICC line insertion for long-term antibiotics. She will be going to [facility] upon discharge. Discharge planning underway. All labs and reports have been reviewed. She has been afebrile. 10/14/2017: Patient seen and examined. Patient is confused and can't understand why she is here. She states she has been very healthy and doesn't understand how she got so sick. She has been hemodynamically stable. She has been afebrile. Discharge planning is underway. The patient will need a PICC line for antibiotics due to osteomyelitis. She is on 2 L nasal cannula. 10/15/17- patient is being seen examined and evaluated today on rounds. She is resting up in bed on 2 L of supplemental oxygen via nasal cannula. Her breathing has been relatively stable. She does have physical therapy on board. Patient is still waiting for PICC line placement hopefully will happen Monday. He continues with wound care. Discharge planning continues. Afebrile no further complaints. Urine output has been good. 10/16/17- patient is being seen examined and evaluated today on rounds. She is resting up in bed on supplemental oxygen via nasal cannula. Her breathing has been stable. She has been hemodynamically stable. The patient is going for her PICC line insertion today once we receive consent from Her Son. She will be going to [facility] upon discharge after PICC line insertion. Objective - Vital Signs Vital signs: Vital Signs Temp 98.5 F 10/16/17 07:45 Pulse 75 10/16/17 07:45 Resp 16 10/16/17 07:45 BP 128/61 10/16/17 07:45 Pulse Ox 92 L 10/16/17 07:45 Intake & Output 10/15/17 10/16/1718 18:59 06:59 18:59 Intake Total 880 530 582 Output Total 2200 525 Balance -1320 5 582 Intake: IV 400 530 0.9 530 Piperacillin-Tazobactam 3 50 .375 gm In Dextrose/Water 1 50ml.bag @ 12.5 mls/hr IVPB Q8HR [facility] Rx#: [id number] Sodium Chloride 0.9% 1, 350 000 ml @ 50 mls/hr IV . Q20H [facility] Rx#:[id number] Oral 480 582 Output: Urine 2200 525 Uretheral (Proctor) 1600 Other: Voiding Method Indwelling Catheter Indwelling Catheter # Bowel Movements 1 1 ABP, PAP, CO, CI - Last Documented Arterial Blood Pressure 114/50 - Exam GENERAL EXAM: More awake and Alert, intermittent confusion with a baseline of dementia, comfortable in no apparent distress. HEAD: Normocephalic. EYES: Normal reaction of pupils, equal size. NOSE: Clear with pink turbinates. THROAT: No erythema or exudates. NECK: No masses, no JVD. CHEST: No chest wall deformity. LUNGS: Lungs noted to be diminished throughout with some faint expiratory wheezing. improving CVS: S1 and S2 normal with no audible mumurs, regular rhythm. ABDOMEN: No hepatosplenomegaly, normal bowel sounds, no guarding or rigidity. EXTREMITIES: No edema noted, pedal pulses palpable. Left lower extremity dressing clean dry and intact CENTRAL NERVOUS SYSTEM: No focal deficits, tone is normal in all 4 extremities. - Labs CBC & Chem 7: 10/15/17 07:48 10/16/17 06:38 Labs: Abnormal Lab Results - Last 24 Hours (Table) 10/15/17 10/15/17 10/15/17 Range/Units 11:08 17:14 19:51 POC Glucose (mg/dL) 128 H 140 H 132 H (75-99) mg/dL 10/16/17 Range/Units 07:36 POC Glucose (mg/dL) 107 H (75-99) mg/dL Microbiology - Last 24 Hours (Table) 10/10/17 15:45 Blood Culture - Preliminary Blood No Growth after 120 hours 10/13/17 19:20 Urine Culture - Final Urine,Clean Catch Viv albicans Assessment and Plan Assessment: Assessment Shock, septic Right middle lobe infiltrate pneumonia Hypotension Acute hypoxic respiratory failure requiring supplemental oxygen Generalized weakness and medical debility Hypomagnesemia Underlying dementia Osteomyelitis of the left foot Plan Patient is cleared from a pulmonary/emission technician standpoint for discharge Plan for PICC line for ABX due to OM Medications have been reviewed and will be continued as ordered. Patient has been hemodynamically stable Echocardiogram EF 45-50% Infectious disease on consult and adjusting antibiotics Continue to monitor and replace electrolytes per protocol Bone scan reviewed Continue with pulmonary hygiene, coughing and deep breathing exercises, and supportive care. Supplemental oxygen to maintain oxygen saturations of 92% or better. Initiate and encourage incentive spirometer Wound care Continue nebulizer treatments. GI and DVT prophylaxis. Protonix and Eliquis Increase activity as tolerated and per ortho recommendations, PT and OT also We will continue to monitor labs/results and adjust treatment as necessary. Further recommendations pending. I performed an examination of the patient and discussed their management with the nurse practitioner. I have reviewed the nurse practitioner's note and agree with the documented findings and plan of care.
--- NOTE | 2017-10-16 10:14 | CDI ---
Last Revision, January 2017 Documentation Clarification Form Date: 10/16/2017 9:34:33 AM From: Katerin Velazquez RN, CCDS Admit Date: 10/03/2017 8:49:00 PM Patient Name: Wanda Corbett Visit Number: [id number] Discharge Date: ATTENTION: The Clinical Documentation Specialists (CDI) and [facility] Coding Staff appreciate your assistance in clarifying documentation. Please respond to the clarification below the line at the bottom and electronically sign. The CDI & [facility] Coding staff will review the response and follow-up if needed. Please note: Queries are made part of the Legal Health Record. If you have any questions, please contact the author of this message via ITS. Mor Farias MD Per your progress notes/operative note, a debridement was performed on left foot heel.=. History/Risk Factors: Diabetes Mellitus, Hypertension, Alzheimers, MRSA foot infection Clinical Indicators: Gangrene of the left heel. In your operative report using a sharp knife we did the debridement of all necrotic tissue was removed. Treatment: Debridement Santyl cream with dressing change per orders Five elements required for accurate and compliant documentation of a debridement : 1. Technique used (e.g., excisional, excised, cutting, etc.) 2. Instrument(s) used (e.g., scalpel, curette, etc.) 3. Nature of the tissue removed (e.g., necrotic, devitalized tissues, non- viable tissue, etc.) 4. Appearance and size of the wound (e.g., down to fresh bleeding tissue, 7cm x 10cm, etc.) 5. Depth of the debridement* (e.g., skin, subcutaneous tissue, fascia, muscle , bone, etc.) In order to capture the severity of condition and code the appropriate procedure ; could you please document the following: Excisional debridement (the removal of necrotic, devitalized tissue or slough by means of cutting away of tissue) Non-excisional debridement (the removal of necrotic, devitalized tissue or slough by means of flushing, brushing, or washing. (Irrigation) Other; please specify Unable to determine (no explanation for clinical finding). Please continue to document in your progress notes and discharge summary in order to capture severity of illness and risk of mortality. Include clinical findings that support your diagnosis. MTDD
[2017-10-16] MEDS: metFORMIN 500 MG TAB PO SCH ×2 (11:06→18:48)
[2017-10-16] MEDS: ESCITALOPRAM 5 MG TAB PO SCH (11:06)
[2017-10-16] MEDS: PANTOPRAZOLE 40 MG TABLET PO SCH (11:07)
[2017-10-16] MEDS: METOPROLOL SUCCINATE (ER) 25 MG TAB.ER.24H PO SCH (11:07)
[2017-10-16] MEDS: ATORVASTATIN 20 MG TAB PO SCH (11:07)
[2017-10-16] MEDS: SPIRONOLACTONE 25 MG TAB PO SCH (11:07)
[2017-10-16] MEDS: GABAPENTIN 100 MG CAP PO SCH ×3 (11:07→21:06)
[2017-10-16] MEDS: amLODIPine 5 MG TAB PO SCH (11:07)
[2017-10-16] MEDS: MULTIVITAMINS, THERA 1 EACH TAB PO SCH (11:07)
[2017-10-16] MEDS: traMADol 50 MG TAB PO PRN ×2 (11:08→18:50)
--- NOTE | 2017-10-16 11:24 | CDI ---
Last Revision, January 2017 Documentation Clarification Form Date: 10/16/2017 10:58:45 AM From: Katerin Velazquez RN, CCDS Admit Date: 10/03/2017 8:49:00 PM Patient Name: Wanda Corbett Visit Number: [id number] Discharge Date: ATTENTION: The Clinical Documentation Specialists (CDI) and [facility] Coding Staff appreciate your assistance in clarifying documentation. Please respond to the clarification below the line at the bottom and electronically sign. The CDI & [facility] Coding staff will review the response and follow-up if needed. Please note: Queries are made part of the Legal Health Record. If you have any questions, please contact the author of this message via ITS. Jase Mathias MD Acute on Chronic renal insufficiency was documented in the in your H/P. History/Risk Factors: Diabetes mellitus, Hypertension, Memory Impairment. Clinical Indicators: present with fall possible syncopal episode, Left heel acute osteomyelitis. The patient does not remember the event and has some baseline dementia. On admission BUN 26, Cr 1.30 GFR 39 Current 10/16/17 BUN 12 Cr 0.97 GFR 56 Baseline BUN/Cr: Not noted Treatment: IV Fluids, Monitor Labs In order to capture the severity of condition, please clarify if the condition signifies: Acute renal failure, Please specify etiology (if known): Acute kidney injury Acute on chronic renal failure CKD Stage 1 GFR >90 CKD Stage 2 GFR 60-89 CKD Stage 3 GFR 30-59 CKD Stage 4 GFR 15-29 CKD Stage 5 GFR <15 Chronic renal failure/Chronic Kidney disease (CKD) please stage if known CKD Stage 1 GFR >90 CKD Stage 2 GFR 60-89 CKD Stage 3 GFR 30-59 CKD Stage 4 GFR 15-29 Other, please specify Unable to determine Please continue to document in your progress notes and discharge summary in order to capture severity of illness and risk of mortality. Include clinical findings that support your diagnosis. MTDD
[2017-10-16 13:48] LABS: Glucose,Whole Blood 123 mg/dL (75-99)
[2017-10-16] MEDS: ACETAMINOPHEN TAB 325 MG TAB PO PRN (14:05)
[2017-10-16] MEDS: MEMANTINE 10 MG TAB PO SCH ×2 (14:08→21:06)
[2017-10-16] MEDS: COLLAGENASE 250 UNIT/GM OINTMENT 30 GM TUBE TOPICAL SCH (14:08)
--- NOTE | 2017-10-16 14:22 | PCN ---
PROCEDURE NOTE ADDENDUM: Excision debridement of the left heel. MMODL / IJN: [id number] /
[2017-10-16] MEDS ORDERED: LIDOCAINE 1% (PF) 10MG/ML VIAL SQ ONE (14:58)
[2017-10-16] MEDS ORDERED: IOPAMIDOL-250 50ML BTL IV ONE (15:02)
[2017-10-16 17:35] LABS: Glucose,Whole Blood 147 mg/dL (75-99)
--- NOTE | 2017-10-16 18:09 | IR ---
EXAMINATION TYPE: IR cvc insert >=5 years DATE OF EXAM: 10/16/2017 COMPARISON: NONE CLINICAL HISTORY: Infection Needs long-term intravenous access for antibiotics. PROCEDURE: After informed consent, the skin overlying the left cephalic vein was localized with ultrasound and n oted to be compressible and patent after unsuccessful attempt at insertion in the left brachial vein. An ultrasound image was obtained and submitted on the patient's chart. The overlying skin was prep ped and draped and Lidocaine was used for local anesthesia. A skin jamin was made with a scalpel. Ac cess was gained to the vein under ultrasound guidance with a 21 gauge needle and a 0.018 inch wire wa s advanced. Access site was dilated with Peel-Away sheath and catheter tailored to the appropriate l ength and advanced such that the distal tip is at the cavoatrial junction. Spot image was obtained v erifying placement. Catheter was fixed to the skin and a sterile dressing was placed following hemos tasis. Catheter was aspirated and flushed with saline. Patient was discharged in stable condition w ithout complication. Maximal barrier technique is utilized. Ultrasound image is documented on the art. Ultrasound used with sterile technique. Fluoro time and fluoroscopic images submitted to document procedure: 205 intraoperative C-arm images, 1 minutes fluoroscopy time IMPRESSION: STATUS POST ULTRASOUND AND FLUOROSCOPIC GUIDED PICC LINE PLACEMENT, READY FOR USE. THIS PROCEDURE WAS PERFORMED BY THE UNDERSIGNED.
[2017-10-16 20:02] LABS: Glucose,Whole Blood 118 mg/dL (75-99)
[2017-10-16] MEDS: MELATONIN 3 MG TABLET PO SCH (21:06)
[2017-10-16] MEDS: DONEPEZIL 10 MG TAB PO SCH (21:06)
--- NOTE | 2017-10-16 21:13 | PN ---
PROGRESS NOTE SUBJECTIVE: 77-year-old white female with inability to ambulate. She has a heel osteomyelitis of the left foot due to MRSA. She had a PICC line placed today. She is waiting for custodial placement or go home with IV antibiotics to [facility] per son's recommendation. Cardiovascular S1, S2. Lungs clear. Psych: Fair mood and affect. Neurologic: Cranial nerves are intact. Strength is 4/5 to 3/5 in the lower legs, 4/5 in arms. ASSESSMENT: 1. Dementia. 2. Osteomyelitis of left heel. 3. Recent fractures of the left hip and the left wrist. Prognosis extremely guarded. Remain with wound care, IV antibiotics, PT, OT, subcu heparin for DVT prophylaxis. Please see further orders. MMODL / IJN: [id number] /
[2017-10-17] MEDS: HEPARIN SODIUM,PORCINE 5,000 UNIT/ML 1 ML VIAL SQ SCH ×2 (00:02→08:31)
[2017-10-17] MEDS: PIPERACILLIN-TAZOBACTAM 3.375 GM in DEXTROSE/WATER 1 50ML.BAG IVPB SCH ×2 (00:02→08:34)
[2017-10-17] MEDS ORDERED: VANCOMYCIN 1,250 MG in SODIUM CHLORIDE 0.9% 250 ML IVPB SCH (06:00)
[2017-10-17 07:46] LABS: Calcium 8.8 mg/dL (8.4-10.2); Potassium 4.4 mmol/L (3.5-5.1)
--- NOTE | 2017-10-17 07:57 | PN ---
PROGRESS NOTE DATE OF SERVICE: 10/16/2017 REASON FOR FOLLOWUP: Left heel infected pressure ulcer with osteomyelitis. INTERVAL HISTORY: The patient is afebrile. She is breathing comfortably. Denies having any chest pain, shortness of breath or cough. No abdominal pain or any diarrhea. PHYSICAL EXAMINATION: On examination, blood pressure is 117/62 with a pulse of 78, temperature of 97.8. She is 91% on 2 L nasal cannula. General description is an elderly female lying in bed in no distress. RESPIRATORY SYSTEM: Unlabored breathing, clear to auscultation anteriorly. HEART: S1, S2. Regular rate and rhythm. ABDOMEN: Soft, no tenderness. Left heel is currently dressed up with no obvious drainage on the dressing. DIAGNOSTIC IMPRESSION AND PLAN: Patient with left heel infected pressure ulcer with underlying osteomyelitis. She did get a PICC line. Plan is for Rocephin 2 grams daily in addition to the vancomycin pharmacy to dose for a total of 6 weeks with close outpatient followup. Continue with supportive care. A prescription was written for the patient and given to the director of casework. MMTREVONL / IJN: [id number] /
[2017-10-17] MEDS: INSULIN ASPART 100 UNIT/ML 1 ML 10 ML VIAL SQ SCH ×2 (08:23→12:41)
[2017-10-17] MEDS: BUDESONIDE 0.5 MG/2 ML NEBU INHALATION SCH (08:25)
[2017-10-17] MEDS: IPRATROPIUM-ALBUTEROL 3 ML NEB INHALATION SCH ×2 (08:25→13:48)
[2017-10-17] MEDS: amLODIPine 5 MG TAB PO SCH (08:31)
[2017-10-17] MEDS: ATORVASTATIN 20 MG TAB PO SCH (08:31)
[2017-10-17] MEDS: metFORMIN 500 MG TAB PO SCH (08:31)
[2017-10-17] MEDS: GABAPENTIN 100 MG CAP PO SCH (08:31)
[2017-10-17] MEDS: METOPROLOL SUCCINATE (ER) 25 MG TAB.ER.24H PO SCH (08:31)
[2017-10-17] MEDS: ESCITALOPRAM 5 MG TAB PO SCH (08:32)
[2017-10-17] MEDS: SPIRONOLACTONE 25 MG TAB PO SCH (08:32)
[2017-10-17] MEDS: PANTOPRAZOLE 40 MG TABLET PO SCH (08:32)
[2017-10-17] MEDS: MEMANTINE 10 MG TAB PO SCH (08:32)
[2017-10-17] MEDS: MULTIVITAMINS, THERA 1 EACH TAB PO SCH (08:32)
[2017-10-17] MEDS: COLLAGENASE 250 UNIT/GM OINTMENT 30 GM TUBE TOPICAL SCH (08:33)
[2017-10-17 12:23] LABS: Glucose,Whole Blood 153 mg/dL (75-99)
[2017-10-17 16:11] VITALS: BP 114/63; PULSE 86; RESP 12; TEMP 98.7
--- NOTE | 2017-10-17 16:20 | PN ---
PROGRESS NOTE DATE OF SERVICE: 10/17/2017. REASON FOR FOLLOWUP: Left heel osteomyelitis. INTERVAL HISTORY: The patient is afebrile. She is breathing comfortably. Denies having any chest pain, shortness of breath or cough. No abdominal pain. She did complain of some pain to the left knee area. Unable to elaborate any further. EXAMINATION: Blood pressure is 127/65 with a pulse of 85, temperature 98.4. She is 92% on 2 L nasal cannula. General description is an elderly female lying in bed in no distress. Respiratory system unlabored breathing. Clear to auscultation anteriorly. Heart S1, S2. Regular rate and rhythm. Abdomen soft, no tenderness. LABS: BUN of 11, creatinine 0.98. DIAGNOSTIC IMPRESSION AND PLAN: Patient with acute left heel osteomyelitis with culture positive for Proteus, will get enterococcus MRSA. The patient will finish therapy with vancomycin, pharmacy to dose along with Rocephin 2 g daily for a total of 6 weeks. Local wound care with Santyl followed by moist dressing to keep the area off the pressure. MMODL / IJN: [id number] /
--- NOTE | 2017-10-17 20:08 | DS ---
DISCHARGE SUMMARY DISCHARGE SUMMARY ADDENDUM: 1. Chronic kidney disease, stage IIIA. MMODL / IJN: [id number] /
--- NOTE | 2017-10-17 20:23 | DS ---
DISCHARGE SUMMARY DISCHARGE MEDICATIONS: Atorvastatin 20 mg daily, metformin 500 b.i.d., Tylenol 650 q.6 hours p.r.n., Norvasc 5 mg daily, melatonin 3 mg q.h.s., spironolactone 25 mg daily, Santyl topical daily, NovoLog insulin a.c. and at bedtime scale, [place] 5/325 one every 4-6 hours p.r.n. for pain, multivitamin daily, Namenda 10 mg b.i.d., Neurontin 100 mg t.i.d., Aricept 10 mg daily, Triad wound paste, Eliquis 5 mg b.i.d., Lexapro 5 mg daily, metoprolol 25 mg daily, Protonix 40 mg daily, amlodipine 5 mg daily. Also for medication she will also need Rocephin 2000 mg IV piggyback q.24 hours for 42 days and vancomycin 1250 mg IV piggyback q.24 hours for 42 days. Pharmacy to monitor vancomycin levels. Pulmicort 0.5 mg b.i.d. and DuoNeb t.i.d. updrafts as well as Santyl topical applications to the left heel. CONDITION: Stable. PROGNOSIS: Guarded. Ambulate as tolerated. Follow up with Dr. Villeda at [facility]. HOSPITAL COURSE OF EVENTS: This is a 77-year-old white female came to the hospital. The patient was admitted with osteomyelitis of the left heel. Debridement by Surgery was performed. Cultures performed. Infectious Disease as well as Surgery saw the patient and after wound cultures came back, she was started on vancomycin and Rocephin for up to 42 days to treat multiple bugs that grew. Patient has intermittent dementia that comes and goes. Some periods of confusion and periods of clarity and she will follow up with wound care and with Dr. Tracy in [facility] and with treatment for the wounds with Santyl daily and IV antibiotics as mentioned above and updrafts for COPD and hypertension medications etc. Condition is stable. Prognosis guarded. Medications mentioned above. ASSESSMENT: 1. Recent left femur fracture. 2. Left radial fracture. 3. Osteomyelitis of the left heel. 4. Dementia. 5. Frequent falls. 6. Status post hip hemiarthroscopy. 7. Hypertension. 8. Diabetes mellitus. 9. Generalized weakness and debility. 10.History of anxiety, depression. Please see further orders in the chart. Follow up with Dr. Villeda at rehab. MMODL / IJN: [id number] /
--- NOTE | 2017-10-18 00:03 | P.PN ---
Subjective Progress Note Date: 10/16/17 This patient is a 77-year-old right-handed white female who is status post recent left hip hemiarthroplasty on 07/10/2017. She was admitted to hospital for evaluation of syncope and inability to ambulate. 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 The patient did not qualify for any stroke intervention. She was sent for routine EEG which was reviewed and failed to reveal any epileptiform discharges. Her mental status has improved to some degree today. She does have history of underlying dementia as well. Neurologically she remains intact. She denies any headache or focal weakness. We will continue close neurological follow-up for the patient. She is being treated for wound healing involving her left heel. She has history of underlying insulin-dependent diabetes mellitus. We recommend tight control of her blood sugars. She has undergone some debridement. She has a bandage in place but states her left foot does pain her. Patient is being followed by orthopedic surgery for recent history of left hip hemiarthroplasty that was done back on 07/10/2017. Orthopedic surgery is recommending weightbearing as tolerated with a walker and physical therapy. Patient has had no further episodes of seizure-like activity. As noted her EEG failed to reveal any epileptiform discharges. Orthopedics is following the patient for her left hip pain. She continues to show evidence of underlying dementia and is a very poor historian. Her left heel ulcer is slowly being treated and show some signs of improvement. We'll await further recommendations from infectious disease. Plans are for consideration for returning the patient to jail at time of discharge. Unfortunately last night the patient developed severe hypotension. She was given IV fluid resuscitation but this did not help. She was transferred to the intensive care unit for further evaluation and treatment. She was started on Levophed to maintain her blood pressure. She is currently on 16 mics of Levophed. She was subsequently weaned off of Levophed and her pressure has now stabilized. She seems to be back to baseline level of function in the intensive care unit at this time. Most likely this patient developed some degree of dehydration producing her hypotensive episode. We will continue to follow her progress closely with multiple other specialists. She does seem to be more appropriate this afternoon and is following some simple commands. Patient is confused and is not clear why she remains in the hospital today. As noted she does have history of underlying dementia. She has left foot pressure ulcer with osteomyelitis which is being treated by infectious disease. She is currently being treated with antibiotics which include vancomycin and Zosyn. She is afebrile today. The patient will need a PICC line for antibiotic treatment of her osteomyelitis. We will follow along with multiple specialists that are seeing this patient. The patient is awaiting possible discharge to [facility] either today or tomorrow. Patient does have history of underlying dementia which remains stable. We will continue close neurological follow-up the patient during this admission. Objective - Vital Signs Vital signs: Vital Signs Temp 98.5 F 10/16/17 01:00 Pulse 81 10/16/17 01:00 Resp 15 10/16/17 01:00 BP 119/56 10/16/17 01:00 Pulse Ox 92 L 10/16/17 01:00 Intake & Output 10/15/17 10/16/17 10/16/17 18:59 06:59 18:59 Intake Total 880 530 Output Total 2200 525 Balance -1320 5 Intake: IV 400 530 0.9 530 Piperacillin-Tazobactam 3 50 .375 gm In Dextrose/Water 1 50ml.bag @ 12.5 mls/hr IVPB Q8HR RACHELLE Rx#: [id number] Sodium Chloride 0.9% 1, 350 000 ml @ 50 mls/hr IV . Q20H RACHELLE Rx#:[id number] Oral 480 Output: Urine 2200 525 Uretheral (Proctor) 1600 Other: Voiding Method Indwelling Catheter Indwelling Catheter # Bowel Movements 1 1 ABP, PAP, CO, CI - Last Documented Arterial Blood Pressure 114/50 - Exam Physical Examination: PHYSICAL EXAMINATION: Patient is resting comfortably in bed. Patient examined in the intensive care unit today and seems to be appropriate for her age. VITAL SIGNS: Blood pressure is [117/51]. Heart rate is [65]. Respiration is [16] . Temperature is [98.8]. HEENT: Head is atraumatic, neck is supple, there were no carotid bruits. CHEST: Lungs are clear to auscultation and percussion. CARDIAC: S1, S2 normal rate and rhythm. There is no murmur. ABDOMEN: Soft and nontender. Bowel sounds are present. EXTREMITIES: There is no pedal edema. Peripheral pulses are present. Neurological examination: Patient neurological exam is unchanged from yesterday. The patient is confused this morning but does seem to be oriented. She does have history of underlying dementia. - Labs CBC & Chem 7: 10/15/17 07:48 10/17/17 07:05 Labs: Abnormal Lab Results - Last 24 Hours (Table) 10/15/17 10/15/17 10/15/17 Range/Units 07:48 07:48 11:08 RBC 3.68 L (3.80-5.40) m/uL Hgb 10.8 L (11.4-16.0) gm/dL Hct 33.7 L (34.0-46.0) % Glucose 113 H (74-99) mg/dL POC Glucose (mg/dL) 128 H (75-99) mg/dL Alkaline Phosphatase 147 H (38-126) U/L Albumin 3.1 L (3.5-5.0) g/dL 10/15/17 10/15/17 Range/Units 17:14 19:51 RBC (3.80-5.40) m/uL Hgb (11.4-16.0) gm/dL Hct (34.0-46.0) % Glucose (74-99) mg/dL POC Glucose (mg/dL) 140 H 132 H (75-99) mg/dL Alkaline Phosphatase (38-126) U/L Albumin (3.5-5.0) g/dL Microbiology - Last 24 Hours (Table) 10/10/17 15:45 Blood Culture - Preliminary Blood No Growth after 120 hours 10/13/17 19:20 Urine Culture - Final Urine,Clean Catch Viv albicans Assessment and Plan (1) Syncope and collapse Status: Acute Code(s): R55 - SYNCOPE AND COLLAPSE SNOMED Code(s): 352885473 (2) Dementia Status: Acute Code(s): F03.90 - UNSPECIFIED DEMENTIA WITHOUT BEHAVIORAL DISTURBANCE SNOMED Code(s): 42172163 (3) Left hip pain Status: Acute Code(s): M25.552 - PAIN IN LEFT HIP SNOMED Code(s): 82538423 (4) Status post hip hemiarthroplasty Status: Acute Code(s): Z96.649 - PRESENCE OF UNSPECIFIED ARTIFICIAL HIP JOINT SNOMED Code(s): 390194605 Plan: This patient is a 77-year-old female who recently underwent left hip hemiarthroplasty on 07/10/2017. [facility] a jail and has been having increasing difficulty to ambulate as well as possible syncopal episode. She had a event yesterday morning suggesting possibility of seizure and a code stroke was initiated. She did not have any evidence for acute stroke and did not require any further intervention. Today she seems to be back to baseline level of function terms of her mental status. She underwent routine EEG yesterday which failed to reveal any epileptiform discharges. She is undergoing debridement of her left heel. Her mental status has shown improvement today. Patient developed some degree of hypotension yesterday evening and was given some fluid challenges with not much response. She was transferred into the intensive care unit this morning and seems to be doing much better now in the ICU. She has been taken off of Levophed and her blood pressure is stabilized. She has had no further episodes of seizure-like activity since yesterday. As noted her EEG failed to reveal any epileptiform abnormalities. Patient is awaiting return to her jail possibly early this week. There is been no significant improvement in her overall neurological status. She does have history of underlying dementia. She is awaiting discharge back to the jail when she is medically stable. We will continue close neurological follow-up for the patient during this admission. Patient does seem to be more awake and alert today and is following simple commands. She is being treated for osteomyelitis involving the left foot. Infectious disease has her covered with appropriate antibiotics. Her overall prognosis at this time remains very guarded. Patient continues to do quite well overall in terms of her mental status. The patient continues to show gradual improvement in her overall mental status over the last week. The patient will need a PICC line placed for IV antibiotic therapy for treatment of her osteomyelitis. She is on 2 L nasal oxygen and seems to be tolerating this well. We are waiting further recommendations from discharge planning in terms of her discharge plan. Patient has stable findings in terms of her underlying dementia. She is awaiting antibiotic treatment through the PICC line. The patient is being considered for discharge to [facility] either today or tomorrow. We would recommend the patient to follow-up in the outpatient neurology clinic for further evaluation of her underlying dementia. We will continue to follow along with multiple specialists were seeing her today. As noted her overall prognosis remains guarded.
== END 2017-10-17 17:30 | DRG 622 ==
LOC: EC 16:55 → 4MS4W 20:49 → 5MS5E 10-04 11:47 → 6ICU 10-10 01:20 → 3SUR 10-11 17:18
PROVIDERS: ADMIT Family Medicine; ATTEND Family Medicine
PROC: 0JBR0ZZ Excision of Left Foot Subcutaneous Tissue and Fascia, Open Approach (ICD-10-PCS; 2017-10-07)
PROC: 02HV33Z Insertion of Infusion Device into Superior Vena Cava, Percutaneous Approach (ICD-10-PCS; 2017-10-10)
PROC: 04HY32Z Insertion of Monitoring Device into Lower Artery, Percutaneous Approach (ICD-10-PCS; 2017-10-10)
PROC: 4A133B1 Monitoring of Arterial Pressure, Peripheral, Percutaneous Approach (ICD-10-PCS; 2017-10-10)
PROC: 4A133J1 Monitoring of Arterial Pulse, Peripheral, Percutaneous Approach (ICD-10-PCS; 2017-10-10)
PROC: 02HV33Z Insertion of Infusion Device into Superior Vena Cava, Percutaneous Approach (ICD-10-PCS; principal; 2017-10-16 14:45)
DX: E11.69 Type 2 diabetes mellitus with other specified complication (principal); L89.624 Pressure ulcer of left heel, stage 4; J18.9 Pneumonia, unspecified organism; J96.01 Acute respiratory failure with hypoxia; R65.21 Severe sepsis with septic shock; A41.9 Sepsis, unspecified organism; S52.92XA Unspecified fracture of left forearm, initial encounter for closed fracture; E11.52 Type 2 diabetes mellitus with diabetic peripheral angiopathy with gangrene; J44.0 Chronic obstructive pulmonary disease with (acute) lower respiratory infection; J98.11 Atelectasis; L03.116 Cellulitis of left lower limb; M86.172 Other acute osteomyelitis, left ankle and foot; B95.62 Methicillin resistant Staphylococcus aureus infection as the cause of diseases classified elsewhere; E03.9 Hypothyroidism, unspecified; E11.22 Type 2 diabetes mellitus with diabetic chronic kidney disease; E11.40 Type 2 diabetes mellitus with diabetic neuropathy, unspecified; E11.621 Type 2 diabetes mellitus with foot ulcer; E78.5 Hyperlipidemia, unspecified; E83.42 Hypomagnesemia; E86.0 Dehydration; F02.80 Dementia in other diseases classified elsewhere, unspecified severity, without behavioral disturbance, psychotic disturbance, mood disturbance, and anxiety; F32.9 Major depressive disorder, single episode, unspecified; G30.9 Alzheimer's disease, unspecified; I12.9 Hypertensive chronic kidney disease with stage 1 through stage 4 chronic kidney disease, or unspecified chronic kidney disease; I48.91 Unspecified atrial fibrillation; J32.0 Chronic maxillary sinusitis; K21.9 Gastro-esophageal reflux disease without esophagitis; R29.6 Repeated falls; R29.702 NIHSS score 2; R56.9 Unspecified convulsions; W18.11XA Fall from or off toilet without subsequent striking against object, initial encounter; Y92.009 Unspecified place in unspecified non-institutional (private) residence as the place of occurrence of the external cause; Z79.01 Long term (current) use of anticoagulants; Z79.2 Long term (current) use of antibiotics; Z79.4 Long term (current) use of insulin; Z79.899 Other long term (current) drug therapy; Z82.0 Family history of epilepsy and other diseases of the nervous system; Z82.49 Family history of ischemic heart disease and other diseases of the circulatory system; Z87.891 Personal history of nicotine dependence; Z90.710 Acquired absence of both cervix and uterus; Z91.81 History of falling; Z96.642 Presence of left artificial hip joint; B96.4 Proteus (mirabilis) (morganii) as the cause of diseases classified elsewhere; B95.2 Enterococcus as the cause of diseases classified elsewhere; N18.3 Chronic kidney disease, stage 3 (moderate)
CPT/HCPCS: 36415; 36569; 70450; 71045; 71046; 73502; 76937; 77001; 78315; 80048; 80053; 80202; 81001; 82550; 82553; 83036; 83605; 83735; 84100; 84484; 85025; 85610; 85730; 87040; 87070; 87075; 87077; 87086; 87186; 87205; 93005; 93306; 94640; 95816; 96360; 96361; 99285

== ENCOUNTER → 2017-10-27 | Day surgery (SDC) | payer MEDICARE | LOC: CATHCVL 10:19 | PROVIDERS: ATTEND Radiology Diagnostic Radiology | DX: Z53.9 Procedure and treatment not carried out, unspecified reason (principal) ==